=== PATIENT | male | born 1950 | race Caucasian/White ===

== ENCOUNTER 2016-12-17 10:01 | Inpatient (IN) | payer BC ==
[2016-12-17] MEDS ORDERED: SODIUM CHLORIDE 0.9% 1,000 ML IV STA (10:30)
[2016-12-17] MEDS ORDERED: PANTOPRAZOLE 40 MG/10 ML VIAL IVP STA (10:30)
--- NOTE | 2016-12-17 10:35 | ED ---
GI Bleed HPI - General Chief complaint: GI Bleed Stated complaint: post op has colostomy, bleeding into bag Time Seen by Provider: 12/17/16 10:05 Source: patient, family, RN notes reviewed Mode of arrival: ambulatory Limitations: no limitations - History of Present Illness Initial comments: Is a 66-year-old male with a history of a colostomy for diverticulitis who states he had a colonoscopy done 2 days ago and yesterday developed some dark red blood in his colostomy bag. The original colostomy was done for diverticulitis. The plan was to do a reversal in the near future. He did have a colonoscopy including the insertion of the scope through the rectum as well as to the ostomy site. Apparently there were 3 polyps in 1 fatty tumor removed. Patient was taken off aspirin he was supposed be off Plavix but apparently did not know that clopidogrel is the other name for Plavix. He was continuing to take it. He quit taking it yesterday. This morning he has had 2 colostomy bags full of dark red blood. He is feeling somewhat lightheaded somewhat dizzy he does look pale per his family. He has no abdominal pain no chest pain fevers chills or sweats or other symptoms. MD complaint: gross hematochezia - Related Data Home Medications Medication Instructions Recorded Confirmed Atenolol [Tenormin] 25 mg PO HS 04/21/16 12/17/16 Atorvastatin Calcium [Lipitor] 10 mg PO HS 04/21/16 12/17/16 Cyanocobalamin [Vitamin B-12] 1,000 mcg PO HS 04/21/16 12/17/16 Folic Acid 1 mg PO DAILY 04/21/16 12/17/16 Magnesium Chloride [Mag64] 64 mg PO DAILY 04/21/16 12/17/16 Aspirin EC [Ecotrin Low Dose] 81 mg PO HS 05/05/16 12/17/16 Cholecalciferol [Vitamin D3] 2,000 unit PO HS 08/24/16 12/17/16 Multivitamins, Thera [Multivitamin 1 tab PO HS 08/24/16 12/17/16 (formulary)] L.acidoph,Paracasei, B.lactis 1 cap PO HS 09/27/16 12/17/16 [Probiotic] Clopidogrel [Plavix] 75 mg PO HS 12/17/16 12/17/16 Allergies Allergy/AdvReac Type Severity Reaction Status Date / Time hydromorphone HCl AdvReac Hallucinati Verified 12/17/16 10:28 [From Dilaudid] ons Review of Systems ROS Statement: Those systems with pertinent positive or pertinent negative responses have been documented in the HPI. ROS Other: All systems not noted in ROS Statement are negative. Past Medical History Past Medical History: Coronary Artery Disease (CAD), Hyperlipidemia, Hypertension, Myocardial Infarction ([place]), Skin Disorder Additional Past Medical History / Comment(s): RIGHT FOOT WOUND.hx diverticulitis Last Myocardial Infarction Date:: 2000 History of Any Multi-Drug Resistant Organisms: None Reported Past Surgical History: Bowel Resection, Heart Catheterization With Stent Additional Past Surgical History / Comment(s): aortogram, bowel resection with colostomy, stent right leg. Colonoscopy 2 days ago Past Anesthesia/Blood Transfusion Reactions: No Reported Reaction Date of Last Stent Placement:: 2000 Past Psychological History: No Psychological Hx Reported Smoking Status: Current every day smoker Past Alcohol Use History: None Reported Additional Past Alcohol Use History / Comment(s): SMOKED FOR 40 YRS, 1/2 PPD FROM 2.5 PPD. Past Drug Use History: None Reported - Past Family History Father Family Medical History: Cancer Mother Family Medical History: Cancer General Exam - General Exam Comments Initial Comments: This is a well-developed well-nourished awake alert oriented 3 male Limitations: no limitations General appearance: alert, in no apparent distress Head exam: Present: atraumatic, normocephalic, normal inspection Eye exam: Present: PERRL, EOMI, other (Pale conjunctiva). Absent: scleral icterus, conjunctival injection, periorbital swelling ENT exam: Present: normal exam, mucous membranes moist Neck exam: Present: normal inspection. Absent: tenderness, meningismus, lymphadenopathy Respiratory exam: Present: normal lung sounds bilaterally. Absent: respiratory distress, wheezes, rales, rhonchi, stridor Cardiovascular Exam: Present: regular rate, normal rhythm, normal heart sounds. Absent: systolic murmur, diastolic murmur, rubs, gallop, clicks GI/Abdominal exam: Present: soft, normal bowel sounds, other (Examination a colostomy bag demonstrate burgundy-colored stool in the ostomy bag the abdomen is soft and nontender no guarding rebound masses or bruits). Absent: distended , tenderness, guarding, rebound, rigid Rectal exam: Present: deferred Extremities exam: Present: normal inspection, full ROM, normal capillary refill. Absent: tenderness, pedal edema, joint swelling, calf tenderness Back exam: Present: normal inspection Neurological exam: Present: alert, oriented X3, CN II-XII intact Psychiatric exam: Present: normal affect, normal mood Skin exam: Present: warm, dry, intact, pallor. Absent: rash Course Vital Signs 12/17/16 12/17/16 10:05 11:03 Temperature 98.4 F 98 F Pulse Rate 78 64 Respiratory 18 18 Rate Blood Pressure 92/81 111/58 O2 Sat by Pulse 96 99 Oximetry - Reevaluation(s) Reevaluation #1: 12/17/16 10:35 Patient does state that he has had blood transfusions before. Medical Decision Making - Medical Decision Making I did discuss findings with the patient family as well as with Dr. Godoy was covered Dr. Redd. Patient will be admitted with every 6 hours CBCs he at this time does not require blood transfusion. - Lab Data Result diagrams: 12/17/16 10:45 12/17/16 10:45 Lab Results 12/17/16 12/17/16 12/17/16 Range/Units 10:45 10:45 10:45 WBC 13.4 H (3.8-10.6) k/uL RBC 2.94 L (4.30-5.90) m/uL Hgb 9.9 L (13.0-17.5) gm/dL Hct 31.8 L (39.0-53.0) % MCV 108.4 H (80.0-100.0) fL MCH 33.8 (25.0-35.0) pg MCHC 31.2 (31.0-37.0) g/dL RDW 14.7 (11.5-15.5) % Plt Count 217 (150-450) k/uL Neutrophils % 86 % Lymphocytes % 8 % Monocytes % 4 % Eosinophils % 0 % Basophils % 1 % Neutrophils # 11.4 H (1.3-7.7) k/uL Lymphocytes # 1.0 (1.0-4.8) k/uL Monocytes # 0.6 (0-1.0) k/uL Eosinophils # 0.1 (0-0.7) k/uL Basophils # 0.1 (0-0.2) k/uL Manual Slide Review Performed Macrocytosis Marked PT (9.0-12.0) sec INR (<1.1) APTT (22.0-30.0) sec Sodium 140 (137-145) mmol/L Potassium 4.3 (3.5-5.1) mmol/L Chloride 108 H (98-107) mmol/L Carbon Dioxide 17 L (22-30) mmol/L Anion Gap 15 mmol/L BUN 26 H (9-20) mg/dL Creatinine 1.51 H (0.66-1.25) mg/dL Est GFR (MDRD) Af Amer 57 (>60 ml/min/1.73 sqM) Est GFR (MDRD) Non-Af 47 (>60 ml/min/1.73 sqM) Glucose 63 L (74-99) mg/dL Calcium 8.7 (8.4-10.2) mg/dL Magnesium 1.6 (1.6-2.3) mg/dL Total Bilirubin 1.0 (0.2-1.3) mg/dL AST 83 H (17-59) U/L ALT 58 (21-72) U/L Alkaline Phosphatase 179 H (38-126) U/L Total Creatine Kinase 64 (55-170) U/L CK-MB (CK-2) 0.9 (0.0-2.4) ng/mL CK-MB (CK-2) Rel Index 1.4 Troponin I <0.012 (0.000-0.034) ng/mL Total Protein 6.8 (6.3-8.2) g/dL Albumin 3.7 (3.5-5.0) g/dL Stool Occult Blood (Negative) Blood Type Blood Type Recheck Antibody Screen Spec Expiration Date 12/17/16 12/17/16 12/17/16 Range/Units 10:45 10:45 10:45 WBC (3.8-10.6) k/uL RBC (4.30-5.90) m/uL Hgb (13.0-17.5) gm/dL Hct (39.0-53.0) % MCV (80.0-100.0) fL MCH (25.0-35.0) pg MCHC (31.0-37.0) g/dL RDW (11.5-15.5) % Plt Count (150-450) k/uL Neutrophils % % Lymphocytes % % Monocytes % % Eosinophils % % Basophils % % Neutrophils # (1.3-7.7) k/uL Lymphocytes # (1.0-4.8) k/uL Monocytes # (0-1.0) k/uL Eosinophils # (0-0.7) k/uL Basophils # (0-0.2) k/uL Manual Slide Review Macrocytosis PT 9.5 (9.0-12.0) sec INR 0.9 (<1.1) APTT 23.4 (22.0-30.0) sec Sodium (137-145) mmol/L Potassium (3.5-5.1) mmol/L Chloride (98-107) mmol/L Carbon Dioxide (22-30) mmol/L Anion Gap mmol/L BUN (9-20) mg/dL Creatinine (0.66-1.25) mg/dL Est GFR (MDRD) Af Amer (>60 ml/min/1.73 sqM) Est GFR (MDRD) Non-Af (>60 ml/min/1.73 sqM) Glucose (74-99) mg/dL Calcium (8.4-10.2) mg/dL Magnesium (1.6-2.3) mg/dL Total Bilirubin (0.2-1.3) mg/dL AST (17-59) U/L ALT (21-72) U/L Alkaline Phosphatase (38-126) U/L Total Creatine Kinase (55-170) U/L CK-MB (CK-2) (0.0-2.4) ng/mL CK-MB (CK-2) Rel Index Troponin I (0.000-0.034) ng/mL Total Protein (6.3-8.2) g/dL Albumin (3.5-5.0) g/dL Stool Occult Blood Positive (Negative) Blood Type B Positive Blood Type Recheck No Antibody Screen NEGATIVE Spec Expiration Date 12/20/2016 - 3759 - Radiology Data Radiology results: report reviewed (I did review the x-ray report no definite acute findings chest x-ray is negative. Abdominal x-ray shows possible evidence of enteritis or ileus.), image reviewed Disposition Clinical Impression: Hematochezia, GI bleed, Anemia Disposition: ADMITTED IP TO THIS HOSP Condition: Stable
[2016-12-17 11:02] LABS: Basophils # (A) 0.1 k/uL (0-0.2); Basophils % (A) 1 %; CHCM 31.5; Eosinophils # (A) 0.1 k/uL (0-0.7); Eosinophils % (A) 0 %; HCT 31.8 % (39.0-53.0); HDW 2.05; HGB 9.9 gm/dL (13.0-17.5); Luc % (Auto) 2; Lymphocytes % (A) 8 %; MCH 33.8 pg (25.0-35.0); MCHC 31.2 g/dL (31.0-37.0); MCV 108.4 fL (80.0-100.0); Macrocytosis Marked; Mean Platelet Volume 8.7; Monocytes # (A) 0.6 k/uL (0-1.0); Monocytes % (A) 4 %; Neutrophils # (A) 11.4 k/uL (1.3-7.7); Neutrophils % (A) 86 %; RBC 2.94 m/uL (4.30-5.90); RDW 14.7 % (11.5-15.5); WBC 13.4 k/uL (3.8-10.6); WBC (Perox) 13.14
[2016-12-17 11:11] LABS: Calcium 8.7 mg/dL (8.4-10.2); Magnesium 1.6 mg/dL (1.6-2.3); Potassium 4.3 mmol/L (3.5-5.1); Total Protein 6.8 g/dL (6.3-8.2)
[2016-12-17 11:21] LABS: Creatine Kinase 64 U/L (55-170)
--- NOTE | 2016-12-17 11:24 | XR ---
EXAMINATION TYPE: XR chest 2V DATE OF EXAM: 12/17/2016 11:14 AM COMPARISON: Previous chest x-ray and May 2016 HISTORY: Pain in abdomen, COPD, blood in colostomy bag TECHNIQUE: Frontal and lateral views of the chest are obtained. FINDINGS: There is no focal air space opacity, pleural effusion, or pneumothorax seen. Prominent connie g volumes are compatible with COPD. The cardiac silhouette size is within normal limits. The osseou s structures are intact. IMPRESSION: No acute cardiopulmonary process.
--- NOTE | 2016-12-17 11:25 | XR ---
Abdomen HISTORY: Blood in colostomy bag, pain in abdomen x1 day Frontal view of the abdomen on 2 images No comparisons There is a spinal curvature. Questionable loss of vertebral body height at L2 at the superior endplat e. There are air-fluid levels without bowel distention. Surgical clips are present in the abdomen. IMPRESSION: Findings may represent ileus or enteritis, follow-up as indicated. Postop changes. Additi onal findings above.
[2016-12-17 11:33] LABS: Manual Review Performed
[2016-12-17 11:34] LABS: Creatine Kinase MB 0.9 ng/mL (0.0-2.4); Troponin I <0.012 ng/mL (0.000-0.034)
[2016-12-17 11:37] LABS: INR 0.9 (<1.1); Partial Thromboplastin Time 23.4 sec (22.0-30.0); Prothrombin Time 9.5 sec (9.0-12.0)
[2016-12-17] MEDS ORDERED: NALOXONE 0.4 MG/ML 1 ML VIAL IV PRN (12:18)
[2016-12-17] MEDS ORDERED: ACETAMINOPHEN TAB 325 MG TAB PO PRN (12:18)
[2016-12-17 15:12] VITALS: BMI 21.7
[2016-12-17] MEDS: SODIUM CHLORIDE 0.9% 1,000 ML IV SCH (15:18)
[2016-12-17] MEDS: NICOTINE 14MG/24HR PATCH TRANSDERM SCH (16:46)
[2016-12-17] MEDS: D5-0.45% NACL WITH KCL 20MEQ/L 1,000 ML IV SCH (16:46)
[2016-12-17 19:30] LABS: CH 34.4; HCT 25.8 % (39.0-53.0); HDW 2.06; MCH 33.9 pg (25.0-35.0); MCHC 31.4 g/dL (31.0-37.0); MCV 108.1 fL (80.0-100.0); Macrocytosis Marked; Mean Platelet Volume 8.4; RBC 2.38 m/uL (4.30-5.90); RDW 14.8 % (11.5-15.5); WBC 8.6 k/uL (3.8-10.6)
[2016-12-17 19:40] LABS: HGB 8.1 gm/dL (13.0-17.5)
[2016-12-17] MEDS ORDERED: ATENOLOL 25 MG TAB PO SCH (21:00)
[2016-12-17] MEDS ORDERED: MULTIVITAMINS, THERA 1 EACH TAB PO SCH (21:00)
[2016-12-17] MEDS ORDERED: ATORVASTATIN 10 MG TAB PO SCH (21:00)
[2016-12-17] MEDS ORDERED: MELATONIN 3 MG TABLET PO SCH (22:45)
[2016-12-18] MEDS: PANTOPRAZOLE 40 MG/10 ML VIAL IV SCH ×2 (01:06→08:59)
[2016-12-18] MEDS: D5-0.45% NACL WITH KCL 20MEQ/L 1,000 ML IV SCH ×2 (04:12→13:00)
[2016-12-18 07:41] LABS: CH 34.4; CHCM 32.4; HCT 26.5 % (39.0-53.0); HDW 2.13; HGB 8.9 gm/dL (13.0-17.5); MCH 35.9 pg (25.0-35.0); MCHC 33.7 g/dL (31.0-37.0); MCV 106.7 fL (80.0-100.0); Macrocytosis Moderate; Mean Platelet Volume 9.1; RBC 2.49 m/uL (4.30-5.90); RDW 14.4 % (11.5-15.5); WBC 7.6 k/uL (3.8-10.6)
[2016-12-18 08:45] VITALS: PULSE 62
[2016-12-18] MEDS: NICOTINE 14MG/24HR PATCH TRANSDERM SCH (08:59)
[2016-12-18] MEDS ORDERED: MAGNESIUM OXIDE 400 MG TAB PO SCH (09:00)
[2016-12-18] MEDS: SODIUM CHLORIDE 0.9% 1,000 ML IV SCH (12:13)
--- NOTE | 2016-12-18 12:52 | P.GSHP ---
History of Present Illness H&P Date: 12/18/16 Chief Complaint: GI bleeding The patient had a colonoscopy with polypectomy and removal of a submucosal lipoma last week. He had a little bit of blood noted in his ostomy appliance Sunday and then had "filled the appliance Sunday morning. He had it again Sunday morning so was instructed go to the ED. He hasn't had any further bleeding since then. No abdominal pain nausea or vomiting. He inadvertently did continue the Plavix. They didn't realize the generic name of that and continue that medication. That was stopped yesterday. - Review of Systems All systems: negative Past Medical History Past Medical History: Coronary Artery Disease (CAD), Hyperlipidemia, Hypertension, Myocardial Infarction ([place]), Skin Disorder Additional Past Medical History / Comment(s): RIGHT FOOT WOUND.hx diverticulitis Last Myocardial Infarction Date:: 2000 History of Any Multi-Drug Resistant Organisms: None Reported Past Surgical History: Bowel Resection, Heart Catheterization With Stent Additional Past Surgical History / Comment(s): aortogram, bowel resection with colostomy, stent right leg. Colonoscopy 2 days ago Past Anesthesia/Blood Transfusion Reactions: No Reported Reaction Date of Last Stent Placement:: 2000 Past Psychological History: No Psychological Hx Reported Smoking Status: Current every day smoker Past Alcohol Use History: Abuse, Heavy Additional Past Alcohol Use History / Comment(s): SMOKED FOR 40 YRS, 1/2 PPD FROM 2.5 PPD. Patient stated he drank a "small amount" however, stopped me in the hallway to inform me that he drinks "Gin straight from the bottle" unsure how much/day. Past Drug Use History: None Reported - Past Family History Father Family Medical History: Cancer Additional Family Medical History / Comment(s): lung Mother Family Medical History: Cancer Additional Family Medical History / Comment(s): lung Medications and Allergies Home Medications Medication Instructions Recorded Confirmed Type Atenolol [Tenormin] 25 mg PO HS 04/21/16 12/17/16 History Atorvastatin Calcium [Lipitor] 10 mg PO HS 04/21/16 12/17/16 History Cyanocobalamin [Vitamin B-12] 1,000 mcg PO HS 04/21/16 12/17/16 History Folic Acid 1 mg PO DAILY 04/21/16 12/17/16 History Magnesium Chloride [Mag64] 64 mg PO DAILY 04/21/16 12/17/16 History Aspirin EC [Ecotrin Low Dose] 81 mg PO HS 05/05/16 12/17/16 History Cholecalciferol [Vitamin D3] 2,000 unit PO HS 08/24/16 12/17/16 History Multivitamins, Thera [Multivitamin 1 tab PO HS 08/24/16 12/17/16 History (formulary)] L.acidoph,Paracasei, B.lactis 1 cap PO HS 09/27/16 12/17/16 History [Probiotic] Clopidogrel [Plavix] 75 mg PO HS 12/17/16 12/17/16 History Allergies Allergy/AdvReac Type Severity Reaction Status Date / Time hydromorphone HCl AdvReac Hallucinati Verified 12/17/16 10:28 [From Dilaudid] ons Surgical - Exam Osteopathic Statement: *. No significant issues noted on an osteopathic structural exam other than those noted in the History and Physical/Consult. Vital Signs Temp Pulse Resp BP Pulse Ox 98.4 F 78 18 92/81 96 12/17/16 10:05 12/17/16 10:05 12/17/16 10:05 12/17/16 10:05 12/17/16 10:05 - General well developed, well nourished, no distress - Eyes normal ocular movement - ENT no hearing loss - Neck trachea midline - Respiratory normal respiratory effort - Abdomen Dark brown stool in the ostomy appliance. No obvious blood. Abdomen: soft, non tender Results - Labs 12/18/16 07:21 12/17/16 10:45 Abnormal Lab Results - Last 24 Hours (Table) 12/17/16 12/18/16 Range/Units 19:24 07:21 RBC 2.38 L 2.49 L (4.30-5.90) m/uL Hgb 8.1 L D 8.9 L (13.0-17.5) gm/dL Hct 25.8 L 26.5 L (39.0-53.0) % MCV 108.1 H 106.7 H (80.0-100.0) fL MCH 35.9 H (25.0-35.0) pg Assessment and Plan (1) Anemia Status: Acute (2) GI bleed Status: Acute Plan: The bleeding appears to have subsided. We will recheck his hemoglobin this afternoon. If it stable and he has no further bleeding we'll discharge him home. Hold the Plavix for 5 days.
[2016-12-18 14:00] LABS: CH 34.1; CHCM 31.6; HCT 25.2 % (39.0-53.0); HDW 2.08; HGB 8.2 gm/dL (13.0-17.5); MCH 35.3 pg (25.0-35.0); MCHC 32.6 g/dL (31.0-37.0); MCV 108.2 fL (80.0-100.0); Macrocytosis Marked; Mean Platelet Volume 8.9; RBC 2.33 m/uL (4.30-5.90); RDW 14.5 % (11.5-15.5)
--- NOTE | 2016-12-18 14:10 | P.CONS ---
History of Present Illness - Reason for Consult Consult date: 12/18/16 Gastrointestinal bleeding - History of Present Illness This is a 66-year-old male patient of Dr. Allen. He gives history that on Sunday he underwent EGD and colonoscopy with Dr. Redd and he was supposed to be off Plavix but somehow this got mixed up and he only stopped the aspirin. He ended up having 3 polyps and a fatty tumor removed and he did fine on Sunday evening. He states he had chicken for dinner but on Sunday morning when he woke up there was significant amount of blood in his ostomy bag. He called the on-call physician which was Dr. Godoy and was instructed to monitor the bleeding. If it worsened he was to come in. Patient states on Sunday morning his colostomy bag was filled again and he was feeling lightheaded and he came into [facility] emergency center for evaluation. His hemoglobin was 9.9 with repeat this morning of 8.9. Patient has been admitted to the [facility] floor and consult requested. Patient states that his drinking is down to 1 every 2 days and he is only smoking on and off. There is plan to reverse his ostomy in the near future. Review of Systems All systems: negative Constitutional: Denies chills, Denies fever Eyes: denies blurred vision, denies pain Ears, nose, mouth and throat: Denies headache, Denies sore throat Cardiovascular: Reports lightheadedness, Denies chest pain, Denies shortness of breath Respiratory: Denies cough Gastrointestinal: Reports melena, Denies abdominal pain, Denies diarrhea, Denies nausea, Denies vomiting Musculoskeletal: Denies myalgias Integumentary: Denies pruritus, Denies rash Neurological: Denies numbness, Denies weakness Psychiatric: Denies anxiety, Denies depression Endocrine: Denies fatigue, Denies weight change Past Medical History Past Medical History: Coronary Artery Disease (CAD), Hyperlipidemia, Hypertension, Myocardial Infarction ([place]), Skin Disorder Additional Past Medical History / Comment(s): RIGHT FOOT WOUND.hx diverticulitis Last Myocardial Infarction Date:: 2000 History of Any Multi-Drug Resistant Organisms: None Reported Past Surgical History: Bowel Resection, Heart Catheterization With Stent Additional Past Surgical History / Comment(s): aortogram, bowel resection with colostomy, stent right leg. Colonoscopy 2 days ago Past Anesthesia/Blood Transfusion Reactions: No Reported Reaction Date of Last Stent Placement:: 2000 Past Psychological History: No Psychological Hx Reported Smoking Status: Current every day smoker Past Alcohol Use History: Abuse, Heavy Additional Past Alcohol Use History / Comment(s): SMOKED FOR 40 YRS, 1/2 PPD FROM 2.5 PPD. Patient stated he drank a "small amount" however, stopped me in the hallway to inform me that he drinks "Gin straight from the bottle" unsure how much/day. Past Drug Use History: None Reported - Past Family History Father Family Medical History: Cancer Additional Family Medical History / Comment(s): lung Mother Family Medical History: Cancer Additional Family Medical History / Comment(s): lung Medications and Allergies Home Medications Medication Instructions Recorded Confirmed Type Atenolol [Tenormin] 25 mg PO HS 04/21/16 12/17/16 History Atorvastatin Calcium [Lipitor] 10 mg PO HS 04/21/16 12/17/16 History Cyanocobalamin [Vitamin B-12] 1,000 mcg PO HS 04/21/16 12/17/16 History Folic Acid 1 mg PO DAILY 04/21/16 12/17/16 History Magnesium Chloride [Mag64] 64 mg PO DAILY 04/21/16 12/17/16 History Aspirin EC [Ecotrin Low Dose] 81 mg PO HS 05/05/16 12/17/16 History Cholecalciferol [Vitamin D3] 2,000 unit PO HS 08/24/16 12/17/16 History Multivitamins, Thera [Multivitamin 1 tab PO HS 08/24/16 12/17/16 History (formulary)] L.acidoph,Paracasei, B.lactis 1 cap PO HS 09/27/16 12/17/16 History [Probiotic] Clopidogrel [Plavix] 75 mg PO HS 12/17/16 12/17/16 History Allergies Allergy/AdvReac Type Severity Reaction Status Date / Time hydromorphone HCl AdvReac Hallucinati Verified 12/17/16 10:28 [From Dilaudid] ons Physical Exam Vitals: Vital Signs Temp Pulse Resp BP Pulse Ox 12/18/16 08:00 18 12/18/16 07:00 97.8 F 62 18 107/55 100 12/17/16 21:54 98.2 F 63 16 100/55 100 12/17/16 15:54 96 12/17/16 14:00 97.5 F L 57 L 18 106/69 99 12/17/16 13:39 57 L 18 106/69 99 Intake and Output 12/17/16 12/18/16 12/18/16 22:59 06:59 14:59 Intake Total 590 Balance 590 Intake: Oral 590 Other: Voiding Method Toilet # Voids 1 General appearance: Present: cooperative, disheveled, no acute distress. Absent : average body habitus, mild distress, morbidly obese, obese, severe distress, thin - EENT Eyes: Present: anicteric sclerae, normal apperance. Absent: abnormal pupil, disc margins sharp, edentulous, EOMI, PERRLA, fundus normal, photophobia, dentition normal, poor dentition, ptosis, scleral icterus ENT: Present: hard of hearing, normal oropharynx. Absent: hearing grossly normal, NA/AT, other, pharyngeal erythema, thrush, tonsillar exudates, tonsillar swelling Ears: bilateral: normal - Neck Neck: Present: normal ROM. Absent: lymphadenopathy, other, rigidity, stridor, thyromegaly Carotids: bilateral: upstroke normal Thyroid: bilateral: normal size - Respiratory Respiratory: bilateral: CTA, diminished, dullness, rales - Cardiovascular Rhythm: regular Heart sounds: normal: S1, S2 Abnormal Heart Sounds: Present: systolic murmur, S3 Gallop - Gastrointestinal Gastrointestinal Comment(s): Stoma and left-sided ostomy looks good. General gastrointestinal: Present: absent bowel sounds, decreased bowel sounds, distended, soft - Integumentary Integumentary: Present: normal, pale. Absent: calor, cellulitis, cyanotic, decreased turgor, flushed, jaundiced, normal turgor, ulcer - Neurologic Neurologic: Present: CNII-XII intact - Musculoskeletal Musculoskeletal: Present: gait normal, generalized weakness, strength equal bilaterally. Absent: right sided weakness, left sided weakness - Psychiatric Psychiatric: Present: A&O x's 3 Results CBC & Chem 7: 12/18/16 07:21 12/17/16 10:45 Labs: Abnormal Lab Results - Last 24 Hours (Table) 12/17/16 12/18/16 Range/Units 19:24 07:21 RBC 2.38 L 2.49 L (4.30-5.90) m/uL Hgb 8.1 L D 8.9 L (13.0-17.5) gm/dL Hct 25.8 L 26.5 L (39.0-53.0) % MCV 108.1 H 106.7 H (80.0-100.0) fL MCH 35.9 H (25.0-35.0) pg Assessment and Plan Plan: 1. Acute GI bleed due to recent polypectomy and fatty tumor removal. Dr. Redd May discharge the patient home later today. Patient is to hold Plavix for 5 days. Continue Protonix 2. Chronic anemia of chronic malnutrition. Patient will resume vitamins at discharge. 3. History of coronary artery disease status post PCI in 2 stent placement in the past. 4. Hypertension. Continue atenolol 5. COPD, stable. 6. Tobacco use and dependence. Smoking cessation. Nicotine patch. 7. Alcohol abuse. Patient has cut back to one alcoholic beverage every 2 days which is much improved for him. Monitor for DTs. 8. Gastrointestinal prophylaxis. Protonix 9. DVT prophylaxis. MARYSE phan Discharge plan: Return home Impression and plan of care have been directed as dictated by the signing physician. Hafsa Haq nurse practitioner acting as scribe for signing physician. Time with Patient: Greater than 30
[2016-12-18 15:55] VITALS: BP 95/54; RESP 16; TEMP 98.3
--- NOTE | 2016-12-18 16:23 | P.DS ---
Providers Date of admission: 12/17/16 12:18 Expected date of discharge: 12/18/16 Attending physician: Jacinta Redd Consults: 12/17/16 14:15 Consult Physician Routine Consulting Provider: Buddy Allen Consult Reason/Comments: medical management Do you want consulting provider notified?: Yes Primary care physician: Buddy Allen - Discharge Diagnosis(es) (1) Anemia Current Visit: Yes Status: Acute (2) GI bleed Current Visit: Yes Status: Acute Hospital Course: The patient presented with GI bleeding after colonoscopy. He was admitted for observation. THe bleeding subsided and he was felt to be stable to be discharged. Stop plavix until sunday. Patient Condition at Discharge: Stable Plan - Discharge Summary Discharge Medication List Atenolol [Tenormin] 25 mg PO HS 04/21/16 [History] Atorvastatin Calcium [Lipitor] 10 mg PO HS 04/21/16 [History] Cyanocobalamin [Vitamin B-12] 1,000 mcg PO HS 04/21/16 [History] Folic Acid 1 mg PO DAILY 04/21/16 [History] Magnesium Chloride [Mag64] 64 mg PO DAILY 04/21/16 [History] Aspirin EC [Ecotrin Low Dose] 81 mg PO HS 05/05/16 [History] Cholecalciferol [Vitamin D3] 2,000 unit PO HS 08/24/16 [History] Multivitamins, Thera [Multivitamin (formulary)] 1 tab PO HS 08/24/16 [History] L.acidoph,Paracasei, B.lactis [Probiotic] 1 cap PO HS 09/27/16 [History] Clopidogrel [Plavix] 75 mg PO HS 12/17/16 [History] Follow up Appointment(s)/Referral(s): Buddy Allen MD [Primary Care Provider] - 1-2 days Jacinta Redd DO [Doctor of Osteopathic Medicine] - 2 Weeks (2-3 weeks to discuss colostomy reversal) Discharge Disposition: HOME SELF-CARE
[2016-12-19] MEDS ORDERED: PANTOPRAZOLE 40 MG TABLET PO SCH (07:30)
== END 2016-12-18 18:28 | disposition home or self-care (01) | DRG 920 ==
LOC: EC 10:01 → 5MS5E 12:18
PROVIDERS: ADMIT Surgery; ATTEND Surgery
DX: K91.840 Postprocedural hemorrhage of a digestive system organ or structure following a digestive system procedure (principal); E46 Unspecified protein-calorie malnutrition; I25.10 Atherosclerotic heart disease of native coronary artery without angina pectoris; I10 Essential (primary) hypertension; T45.525A Adverse effect of antithrombotic drugs, initial encounter; E78.5 Hyperlipidemia, unspecified; I25.2 Old myocardial infarction; D63.8 Anemia in other chronic diseases classified elsewhere; F10.10 Alcohol abuse, uncomplicated; J44.9 Chronic obstructive pulmonary disease, unspecified; H91.90 Unspecified hearing loss, unspecified ear; R53.1 Weakness; R42 Dizziness and giddiness; F17.200 Nicotine dependence, unspecified, uncomplicated; Z79.899 Other long term (current) drug therapy; Z79.02 Long term (current) use of antithrombotics/antiplatelets; Z87.828 Personal history of other (healed) physical injury and trauma; Z79.82 Long term (current) use of aspirin; Z88.5 Allergy status to narcotic agent; Z87.2 Personal history of diseases of the skin and subcutaneous tissue; Z87.19 Personal history of other diseases of the digestive system; Z86.010 Personal history of colon polyps; Z71.6 Tobacco abuse counseling; Z80.1 Family history of malignant neoplasm of trachea, bronchus and lung; Z86.19 Personal history of other infectious and parasitic diseases; Z90.49 Acquired absence of other specified parts of digestive tract; Z95.820 Peripheral vascular angioplasty status with implants and grafts; Z95.5 Presence of coronary angioplasty implant and graft; Z93.3 Colostomy status; Z68.21 Body mass index [BMI] 21.0-21.9, adult; Y83.8 Other surgical procedures as the cause of abnormal reaction of the patient, or of later complication, without mention of misadventure at the time of the procedure; Y92.019 Unspecified place in single-family (private) house as the place of occurrence of the external cause
CPT/HCPCS: 36415; 71020; 74000; 80053; 82272; 82550; 82553; 83735; 84484; 85025; 85027; 85610; 85730; 86850; 86900; 86901; 96361; 96374; 99285

== ENCOUNTER 2017-02-17 12:21 | Emergency (ER) | payer BC ==
--- NOTE | 2017-02-17 13:22 | XR ---
EXAMINATION TYPE: XR knee complete LT DATE OF EXAM: 02/17/2017 COMPARISON: NONE HISTORY: Pain TECHNIQUE: Four views are submitted. FINDINGS: Vascular calcifications are seen and there is hypertrophic change of the patella. Small amount of flu id in the suprapatellar bursa. Diffuse osteopenia. Moderate arthritic change involving the knee joint . IMPRESSION: 1. Diffuse osteopenia with osteoarthritis 2. Small amount of fluid in the suprapatellar bursa.
--- NOTE | 2017-02-17 13:40 | ED ---
General Adult HPI - General Chief complaint: Extremity Injury, Lower Stated complaint: Fall Time Seen by Provider: 02/17/17 12:56 Source: patient, family, RN notes reviewed Mode of arrival: wheelchair Limitations: no limitations - History of Present Illness Initial comments: Patient 66-year-old male who presents emergency room today with a chief complaint of an injury to the left knee that occurred yesterday. [place] and [place] down onto the left knee. He does admit that he's had pain has been increased today had a difficult time bearing weight and ambulating. Agent does admit some mild swelling. He denies any other complaints or symptoms. Patient denies any recent fever, chills, shortness of breath, chest pain, back pain, abdominal pain, nausea or vomiting, numbness or tingling, dysuria or hematuria, constipation or diarrhea, headaches or visual changes, or any other complaints. - Related Data Home Medications Medication Instructions Recorded Confirmed Atenolol [Tenormin] 25 mg PO HS 04/21/16 02/17/17 Atorvastatin Calcium [Lipitor] 10 mg PO HS 04/21/16 02/17/17 Cyanocobalamin [Vitamin B-12] 1,000 mcg PO HS 04/21/16 02/17/17 Folic Acid 1 mg PO HS 04/21/16 02/17/17 Magnesium Chloride [Mag64] 64 mg PO HS 04/21/16 02/17/17 Aspirin EC [Ecotrin Low Dose] 81 mg PO HS 05/05/16 02/17/17 Cholecalciferol [Vitamin D3] 2,000 unit PO HS 08/24/16 02/17/17 Multivitamins, Thera [Multivitamin 1 tab PO HS 08/24/16 02/17/17 (formulary)] Clopidogrel [Plavix] 75 mg PO HS 12/17/16 02/17/17 Allergies Allergy/AdvReac Type Severity Reaction Status Date / Time hydromorphone HCl AdvReac Hallucinati Verified 02/17/17 13:11 [From Dilaudid] ons Review of Systems ROS Statement: Those systems with pertinent positive or pertinent negative responses have been documented in the HPI. ROS Other: All systems not noted in ROS Statement are negative. Past Medical History Past Medical History: Coronary Artery Disease (CAD), Hyperlipidemia, Hypertension, Myocardial Infarction ([place]), Skin Disorder Additional Past Medical History / Comment(s): RIGHT FOOT WOUND.hx diverticulitis Last Myocardial Infarction Date:: 2000 History of Any Multi-Drug Resistant Organisms: None Reported Past Surgical History: Bowel Resection, Heart Catheterization With Stent Additional Past Surgical History / Comment(s): aortogram, bowel resection with colostomy, stent right leg. Colonoscopy 2 days ago Past Anesthesia/Blood Transfusion Reactions: No Reported Reaction Date of Last Stent Placement:: 2000 Past Psychological History: No Psychological Hx Reported Smoking Status: Current every day smoker Past Alcohol Use History: Abuse, Heavy Past Drug Use History: None Reported - Past Family History Father Family Medical History: Cancer Additional Family Medical History / Comment(s): lung Mother Family Medical History: Cancer Additional Family Medical History / Comment(s): lung General Exam - General Exam Comments Initial Comments: General: The patient is awake and alert, in no distress, and does not appear acutely ill. Neck: The neck is supple, there is no tenderness or JVD. Cardiovascular: There is a regular rate and rhythm. No murmur, rub or gallop is appreciated. Respiratory: Lungs are clear to auscultation, respirations are non-labored, breath sounds are equal. No wheezes, stridor, rales, or rhonchi. Musculoskeletal: Mild swelling to the left knee. Shows good range of motion both flexion and extension. Sensations are intact pulses equal bilaterally 2+. Strength 5/5. Mild tenderness over the anterior tibia. Pain reproduced with loading joint. Neurological: A&O x 3. CN II-XII intact, There are no obvious motor or sensory deficits. Coordination appears grossly intact. Speech is normal. Skin: Skin is warm and dry and no rashes or lesions are noted. Psychiatric: Normal mood and affect. Limitations: no limitations Course Vital Signs 02/17/17 12:42 Temperature 98.7 F Pulse Rate 81 Respiratory 16 Rate Blood Pressure 103/71 O2 Sat by Pulse 99 Oximetry Medical Decision Making - Medical Decision Making Patient's CT reviewed and does show evidence for a popliteal cyst. No evidence for acute fracture dislocation. Results were discussed with the patient. Patient will be placed in knee immobilizer. He states he has crutches at home. He is advised follow-up with orthopedic doctor. He is advised to continue ice and elevate the affected area. Advised return if symptoms increase or worsen or for any other concerns. He states understanding and is in agreement. Disposition Clinical Impression: Knee injury Disposition: HOME SELF-CARE Condition: Good Instructions: Swollen Knee Joint (ED) Additional Instructions: Please use knee immobilizer up and moving around. Please use crutches with weightbearing as tolerated. Please continue to ice elevate the affected area as discussed. Please follow-up with orthopedic doctor over the next 2-5 days. Please return to emergency room if any symptoms increase or worsen. Referrals: Buddy Allen MD [Primary Care Provider] - 1-2 days Time of Disposition: 14:25
--- NOTE | 2017-02-17 14:14 | CT ---
EXAMINATION TYPE: CT knee LT wo con DATE OF EXAM: 02/17/2017 COMPARISON: NONE HISTORY: Patient complains of left knee pain post fall in sand yesterday. CT DLP: 434.4 mGycm Automated exposure control for dose reduction was used. FINDINGS: Hypertrophic change of the patella narrowing of the joint space is seen without evidence of erosive c hange. Tibial plateau is maintained. Visualized osseous structures intact. Trace amount of fluid in the supr apatellar bursa. Vascular calcifications noted. Low density structure posteriorly likely related to popliteal fossa cyst. Soft tissue ossification o r calcification posteriorly is noted to the joint space. IMPRESSION: 1. NO DEFINITE ACUTE FRACTURE OR SYMPTOMS PERSIST CONSIDER MRI. 2. FINDINGS SUGGEST A POPLITEAL FOSSA CYST MEASURING 2 CM.. 3. OSTEOARTHRITIS
[2017-02-17 14:37] VITALS: BP 107/57; PULSE 72; RESP 18; TEMP 97.9
== END 2017-02-17 14:47 | disposition home or self-care (01) ==
LOC: EC 12:21
DX: S89.92XA Unspecified injury of left lower leg, initial encounter (principal); M71.22 Synovial cyst of popliteal space [Baker], left knee; E78.5 Hyperlipidemia, unspecified; I10 Essential (primary) hypertension; I25.2 Old myocardial infarction; F17.200 Nicotine dependence, unspecified, uncomplicated; Z79.02 Long term (current) use of antithrombotics/antiplatelets; Z79.82 Long term (current) use of aspirin; Z79.899 Other long term (current) drug therapy; Z88.5 Allergy status to narcotic agent; W01.0XXA Fall on same level from slipping, tripping and stumbling without subsequent striking against object, initial encounter; Y92.832 Beach as the place of occurrence of the external cause
CPT/HCPCS: 73562; 73700; 99284; 29515; L1830 ×2

== ENCOUNTER 2017-05-27 09:22 | Inpatient (IN) | payer BC ==
[2017-05-27] MEDS ORDERED: predniSONE 20 MG TAB PO STA (09:54)
[2017-05-27] MEDS ORDERED: ALBUTEROL NEBULIZED 2.5 MG/3 ML INHALATION STA (09:54)
[2017-05-27 10:12] LABS: Anisocytosis Slight; Basophils % (A) 0 %; CH 30.3; CHCM 33.5; Eosinophils # (A) 0.1 k/uL (0-0.7); Eosinophils % (A) 0 %; HCT 25.4 % (39.0-53.0); HDW 3.04; HGB 8.3 gm/dL (13.0-17.5); Luc # (Auto) 0.12; Luc % (Auto) 1; Lymphocytes # (A) 1.6 k/uL (1.0-4.8); Lymphocytes % (A) 15 %; MCH 29.7 pg (25.0-35.0); MCHC 32.8 g/dL (31.0-37.0); MCV 90.5 fL (80.0-100.0); Mean Platelet Volume 8.5; Monocytes # (A) 0.5 k/uL (0-1.0); Monocytes % (A) 4 %; Neutrophils # (A) 8.5 k/uL (1.3-7.7); Neutrophils % (A) 79 %; RBC 2.81 m/uL (4.30-5.90); RDW 19.6 % (11.5-15.5); WBC 10.7 k/uL (3.8-10.6); WBC (Perox) 10.72
[2017-05-27 10:16] LABS: Calcium 7.6 mg/dL (8.4-10.2); Potassium 3.2 mmol/L (3.5-5.1); Total Bilirubin 1.3 mg/dL (0.2-1.3); Total Protein 6.1 g/dL (6.3-8.2)
[2017-05-27 10:19] LABS: INR 1.2 (<1.2); Partial Thromboplastin Time 24.9 sec (22.0-30.0); Prothrombin Time 12.2 sec (9.0-12.0)
--- NOTE | 2017-05-27 10:22 | ED ---
General Adult HPI - General Chief complaint: Shortness of Breath Stated complaint: Shortness of breath Time Seen by Provider: 05/27/17 09:31 Source: patient, RN notes reviewed, old records reviewed Mode of arrival: wheelchair Limitations: no limitations - History of Present Illness Initial comments: 66-year-old male with past medical history COPD, CAD, and anemia presents with a 3 week history of worsening exertional dyspnea. He also reports generalized weakness. Patient states over the past several days he's been unable to walk more than 10 feet without becoming severely short of breath. Denies chest pain. Denies fever. He has had a cough over this is typical as he does have COPD. No significant change in cough. This is productive of small amount of sputum. No recent change in medications. Patient states that approximately 2 weeks ago he was instructed by his physician or come to the hospital for blood transfusion. He did receive blood at that time for a low hemoglobin. He has additional past medical history of diverticulitis requiring colostomy approximately one year ago. This is subsequently been reversed. Patient denies rectal bleeding. He is on Plavix for CAD. - Related Data Home Medications Medication Instructions Recorded Confirmed Atorvastatin Calcium [Lipitor] 10 mg PO HS 04/21/16 05/27/17 Folic Acid 1 mg PO HS 04/21/16 05/27/17 Clopidogrel [Plavix] 75 mg PO HS 12/17/16 05/27/17 Allergies Allergy/AdvReac Type Severity Reaction Status Date / Time hydromorphone HCl AdvReac Hallucinati Verified 05/27/17 10:06 [From Dilaudid] ons Review of Systems ROS Statement: Those systems with pertinent positive or pertinent negative responses have been documented in the HPI. ROS Other: All systems not noted in ROS Statement are negative. Past Medical History Past Medical History: Coronary Artery Disease (CAD), Hyperlipidemia, Hypertension, Myocardial Infarction ([place]), Skin Disorder Additional Past Medical History / Comment(s): RIGHT FOOT WOUND.hx diverticulitis Last Myocardial Infarction Date:: 2000 History of Any Multi-Drug Resistant Organisms: None Reported Past Surgical History: Bowel Resection, Heart Catheterization With Stent Additional Past Surgical History / Comment(s): aortogram, bowel resection with colostomy, stent right leg. Colonoscopy 2 days ago Past Anesthesia/Blood Transfusion Reactions: No Reported Reaction Date of Last Stent Placement:: 2000 Past Psychological History: No Psychological Hx Reported Smoking Status: Current every day smoker - Past Family History Father Family Medical History: Cancer Additional Family Medical History / Comment(s): lung Mother Family Medical History: Cancer Additional Family Medical History / Comment(s): lung General Exam Limitations: no limitations General appearance: alert, in no apparent distress, anxious Eye exam: Present: normal appearance, PERRL ENT exam: Present: mucous membranes dry Neck exam: Present: normal inspection, full ROM. Absent: tenderness Respiratory exam: Present: prolonged expiratory, other (Bronchospastic cough). Absent: wheezes Cardiovascular Exam: Present: normal rhythm, tachycardia GI/Abdominal exam: Present: soft. Absent: distended, tenderness Rectal exam: Present: normal inspection, normal rectal tone, heme (-) stool Extremities exam: Present: normal capillary refill. Absent: pedal edema, calf tenderness Back exam: Present: normal inspection, full ROM Neurological exam: Present: alert, oriented X3, CN II-XII intact. Absent: motor sensory deficit Psychiatric exam: Present: normal affect, normal mood Skin exam: Present: warm, dry, intact. Absent: cyanosis, diaphoretic Course Vital Signs 05/27/17 05/27/17 09:26 11:02 Temperature 98.7 F Pulse Rate 111 H 100 Respiratory 22 Rate Blood Pressure 103/56 O2 Sat by Pulse 97 Oximetry - Reevaluation(s) Reevaluation #1: 05/27/17 10:44 Patient is updated as to laboratory findings. He is agreeable with admission for further evaluation treatment Medical Decision Making - Medical Decision Making EKG shows sinus tachycardia with PACs, ventricular rate 102 NJ interval 150, QRS duration 70, QTC 482 66-year-old male presenting with exertional dyspnea and generalized weakness. Laboratory studies reveal hemoglobin 8.3 which is stable from previous. No active signs of bleeding. Hemoccult is negative. D-dimer is elevated 1.13, however creatinine is also elevated 1.54 which persisted patient's baseline. VQ scan will be obtained. Patient is heparinized prior to scan. Potassium 3.2 from a baseline of 4.3 which is replaced. Magnesium is severely low at 0.5, from recent baseline 1.6. Troponin is mildly elevated 0.035, patient has no chest pain, this may be demand ischemia. Patient is on heparin awaiting VQ scan for pulmonary embolism, he may require low-dose heparin drip if VQ scan is negative. Albumin is also low at 3.0. Patient does abuse alcohol daily. Magnesium and potassium deficiencies may be related to alcohol abuse. Patient is placed on CIWA. Chest x-ray shows hyperinflation consistent with COPD. Patient does have bronchospastic cough, there is no wheezing, good air entry bilaterally. Patient will receive VQ scan. Diagnosis: Dyspnea, rule out PE, troponin elevation, anemia, chronic kidney disease, hypokalemia, hypomagnesemia, hypoalbuminemia - Lab Data Result diagrams: 05/27/17 09:45 05/27/17 09:45 Lab Results 05/27/17 05/27/17 05/27/17 Range/Units 09:45 09:45 09:45 WBC 10.7 H (3.8-10.6) k/uL RBC 2.81 L (4.30-5.90) m/uL Hgb 8.3 L (13.0-17.5) gm/dL Hct 25.4 L (39.0-53.0) % MCV 90.5 (80.0-100.0) fL MCH 29.7 (25.0-35.0) pg MCHC 32.8 (31.0-37.0) g/dL RDW 19.6 H (11.5-15.5) % Plt Count 327 (150-450) k/uL Neutrophils % 79 % Lymphocytes % 15 % Monocytes % 4 % Eosinophils % 0 % Basophils % 0 % Neutrophils # 8.5 H (1.3-7.7) k/uL Lymphocytes # 1.6 (1.0-4.8) k/uL Monocytes # 0.5 (0-1.0) k/uL Eosinophils # 0.1 (0-0.7) k/uL Basophils # 0.0 (0-0.2) k/uL Anisocytosis Slight PT (9.0-12.0) sec INR (<1.2) APTT (22.0-30.0) sec D-Dimer (<0.60) mg/L FEU Sodium 135 L (137-145) mmol/L Potassium 3.2 L (3.5-5.1) mmol/L Chloride 99 (98-107) mmol/L Carbon Dioxide 23 (22-30) mmol/L Anion Gap 13 mmol/L BUN 12 (9-20) mg/dL Creatinine 1.54 H (0.66-1.25) mg/dL Est GFR (MDRD) Af Amer 55 (>60 ml/min/1.73 sqM) Est GFR (MDRD) Non-Af 46 (>60 ml/min/1.73 sqM) Glucose 97 (74-99) mg/dL Calcium 7.6 L (8.4-10.2) mg/dL Magnesium 0.5 L* (1.6-2.3) mg/dL Total Bilirubin 1.3 (0.2-1.3) mg/dL AST 52 (17-59) U/L ALT 20 L (21-72) U/L Alkaline Phosphatase 178 H (38-126) U/L Total Creatine Kinase 253 H (55-170) U/L CK-MB (CK-2) 2.4 (0.0-2.4) ng/mL CK-MB (CK-2) Rel Index 0.9 Troponin I 0.035 H* (0.000-0.034) ng/mL NT-Pro-B Natriuret Pep pg/mL Total Protein 6.1 L (6.3-8.2) g/dL Albumin 3.0 L (3.5-5.0) g/dL Stool Occult Blood (Negative) 05/27/17 05/27/17 05/27/17 Range/Units 09:45 09:45 09:45 WBC (3.8-10.6) k/uL RBC (4.30-5.90) m/uL Hgb (13.0-17.5) gm/dL Hct (39.0-53.0) % MCV (80.0-100.0) fL MCH (25.0-35.0) pg MCHC (31.0-37.0) g/dL RDW (11.5-15.5) % Plt Count (150-450) k/uL Neutrophils % % Lymphocytes % % Monocytes % % Eosinophils % % Basophils % % Neutrophils # (1.3-7.7) k/uL Lymphocytes # (1.0-4.8) k/uL Monocytes # (0-1.0) k/uL Eosinophils # (0-0.7) k/uL Basophils # (0-0.2) k/uL Anisocytosis PT 12.2 H (9.0-12.0) sec INR 1.2 H (<1.2) APTT 24.9 (22.0-30.0) sec D-Dimer 1.13 H (<0.60) mg/L FEU Sodium (137-145) mmol/L Potassium (3.5-5.1) mmol/L Chloride (98-107) mmol/L Carbon Dioxide (22-30) mmol/L Anion Gap mmol/L BUN (9-20) mg/dL Creatinine (0.66-1.25) mg/dL Est GFR (MDRD) Af Amer (>60 ml/min/1.73 sqM) Est GFR (MDRD) Non-Af (>60 ml/min/1.73 sqM) Glucose (74-99) mg/dL Calcium (8.4-10.2) mg/dL Magnesium (1.6-2.3) mg/dL Total Bilirubin (0.2-1.3) mg/dL AST (17-59) U/L ALT (21-72) U/L Alkaline Phosphatase (38-126) U/L Total Creatine Kinase (55-170) U/L CK-MB (CK-2) (0.0-2.4) ng/mL CK-MB (CK-2) Rel Index Troponin I (0.000-0.034) ng/mL NT-Pro-B Natriuret Pep 1320 pg/mL Total Protein (6.3-8.2) g/dL Albumin (3.5-5.0) g/dL Stool Occult Blood Negative (Negative) Critical Care Time Critical Care Time: Yes Total Critical Care Time: 35 Disposition Clinical Impression: Dyspnea, Hypomagnesemia, Hypokalemia, Elevated d-dimer, NSTEMI (non-ST elevated myocardial infarction), Alcohol abuse Disposition: ADMITTED IP TO THIS [facility] Condition: Serious Referrals: Buddy Allen MD [Primary Care Provider] - 1-2 days Decision to Admit Reason: Admit from EC Decision Date: 05/27/17 Decision Time: 11:14
[2017-05-27 10:25] LABS: Magnesium 0.5 mg/dL (1.6-2.3)
[2017-05-27] MEDS ORDERED: SODIUM CHLORIDE 0.9% 1,000 ML IV ONE (10:27)
[2017-05-27] MEDS ORDERED: HEPARIN SODIUM,PORCINE/D5W PMX 25,000 UNIT in DEXTROSE/WATER 1 500ML.BAG IV SCH ×2 (10:29→14:00)
[2017-05-27] MEDS ORDERED: HEPARIN SODIUM,PORCINE 5,000 UNIT/ML 1 ML VIAL IV PRN (10:29)
[2017-05-27] MEDS ORDERED: HEPARIN SODIUM,PORCINE 10,000 UNIT/ML 1 ML VIAL IV ONE (10:29)
[2017-05-27] MEDS ORDERED: MAGNESIUM SULFATE-D5W PMX 1 GM in DEXTROSE/WATER 1 100ML.BAG IVPB SCH (10:30)
--- NOTE | 2017-05-27 10:32 | XR ---
EXAMINATION TYPE: XR chest 2V DATE OF EXAM: 05/27/2017 HISTORY: difficulty breathing. REFERENCE: Previous study dated 12/17/2016. FINDINGS: The lungs are clear. Pleural space are clear. The heart is not enlarged. There is mild over inflation of the lungs. IMPRESSION: PLEASE CORRELATE FOR COPD.
[2017-05-27] MEDS ORDERED: POTASSIUM CHLORIDE ER 20 MEQ TAB.ER PO STA (10:37)
[2017-05-27 10:39] LABS: Creatine Kinase MB 2.4 ng/mL (0.0-2.4)
[2017-05-27] MEDS ORDERED: LORazepam 2 MG/ML INJ IV PRN ×3 (10:41)
[2017-05-27] MEDS ORDERED: THIAMINE 100 MG/ML 2 ML VIAL IM STA (10:41)
[2017-05-27 10:50] LABS: Troponin I 0.035 ng/mL (0.000-0.034)
[2017-05-27] MEDS ORDERED: ASPIRIN 325 MG TAB PO STA (11:02)
[2017-05-27] MEDS ORDERED: NALOXONE 0.4 MG/ML 1 ML VIAL IV PRN (11:02)
[2017-05-27] MEDS: SODIUM CHLORIDE 0.9% 1,000 ML IV SCH ×2 (11:02→22:10)
[2017-05-27] MEDS ORDERED: ONDANSETRON 4 MG/2 ML VIAL IVP PRN (11:02)
[2017-05-27] MEDS ORDERED: ACETAMINOPHEN TAB 325 MG TAB PO PRN (11:02)
[2017-05-27] MEDS: MAGNESIUM SULFATE-D5W PMX 1 GM in DEXTROSE/WATER 1 100ML.BAG IVPB SCH ×5 (11:21→19:55)
--- NOTE | 2017-05-27 13:30 | NM ---
EXAMINATION TYPE: NM pul vent and perfuse DATE OF EXAM: 05/27/2017 COMPARISON: NONE HISTORY: Elevated d-dimer TECHNIQUE: Utilizing inhalation of 76.2 mCi Tc 99m DTPA aerosol and intravenous injection of 5.4 mCi of Tc 99m MAA, ventilation and perfusion images are acquired post injection in multiple projections. FINDINGS: There is central airway deposition of radiopharmaceutical. There is patchy perfusion and ve ntilation consistent with COPD. There are no VQ mismatches. IMPRESSION: THIS EXAMINATION IS LOW PROBABILITY FOR PULMONARY EMBOLUS.
--- NOTE | 2017-05-27 14:12 | P.CNPUL ---
History of Present Illness Consult date: 05/27/17 Reason for consult: dyspnea History of present illness: 66-year-old male patient known to me from previous hospitalizations, specifically from May 2016 when the patient came in to the ICU with complicated acute diverticulitis with abscess formation for which she required a colectomy and diverting colostomy and John pouch. I took care of this patient back then and he is course was essentially complicated by sepsis, hypotension, acute kidney injury and altered mentation from which the patient recovered. I saw him in my office subsequently and he was diagnosed having advanced COPD with an FEV1 of 40% of predicted. He was strongly advised to quit smoking and quit drinking in addition. Note that the patient underwent a reversal of his colostomy on December 2016. This was successful without any complications. Currently the patient is coming into the hospital cause a worsening shortness of breath. The patient has no significant cough or sputum production. He has no chest pain. Denies having any fever chills or night sweats. He had limited amount of sputum production which essentially subsided. He reports exertional dyspnea and he gets short of breath with limited amount of activity. He is known to have COPD and coronary artery disease. Has undergone previous coronary intervention and stenting. Echocardiogram from 2015 showed a normal LV function without evidence of any valvular heart disease with a normal ejection fraction. He d-dimer was elevated. The patient was given a VQ scan that came back of a low probability. The patient has chronic renal failure the creatinine is typically elevated at 1.5-1.6. For that reason a CT angios the chest was not done. Chest x-ray shows hyperinflation without any acute abnormalities. The BNP level is at 1320. Initial troponin was negative second troponin was at 0.035. Rest of the electrodes are all within normal limits. He has chronic anemia and hemoglobin is been stable at 8.3. Coagulation profile is within normal limits. Review of Systems Constitutional: Reports fatigue, Reports poor appetite, Reports weakness Eyes: denies blurred vision, denies bulging eye, denies decreased vision Ears: deny: decreased hearing, ear discharge, earache Ears, nose, mouth and throat: Reports as per HPI Cardiovascular: Reports decreased exercise tolerance, Reports dyspnea on exertion, Reports shortness of breath Respiratory: Reports dyspnea Gastrointestinal: Reports as per HPI Genitourinary: Reports as per HPI Musculoskeletal: Denies myalgias Musculoskeletal: absent: ankle pain, ankle stiffness, ankle swelling Integumentary: Denies pruritus, Denies rash Neurological: Denies numbness, Denies weakness Psychiatric: Denies anxiety, Denies depression Endocrine: Denies fatigue, Denies weight change Past Medical History Past Medical History: Coronary Artery Disease (CAD), Hyperlipidemia, Hypertension, Myocardial Infarction ([place]), Skin Disorder Additional Past Medical History / Comment(s): Coronary artery disease with previous coronary intervention and stenting, advanced COPD, hypertension, hyperlipidemia, complicated diverticulitis requiring colectomy and diverticular colostomy with subsequent reversal, smoker, alcoholism, peripheral vascular disease Last Myocardial Infarction Date:: 2000 History of Any Multi-Drug Resistant Organisms: None Reported Past Surgical History: Bowel Resection, Heart Catheterization With Stent Additional Past Surgical History / Comment(s): aortogram, bowel resection with colostomy, stent right leg. Colonoscopy 2 days ago Past Anesthesia/Blood Transfusion Reactions: No Reported Reaction Date of Last Stent Placement:: 2000 Past Psychological History: No Psychological Hx Reported Smoking Status: Current every day smoker - Past Family History Father Family Medical History: Cancer Additional Family Medical History / Comment(s): lung Mother Family Medical History: Cancer Additional Family Medical History / Comment(s): lung Medications and Allergies Home Medications Medication Instructions Recorded Confirmed Type Atorvastatin Calcium [Lipitor] 10 mg PO HS 04/21/16 05/27/17 History Folic Acid 1 mg PO HS 04/21/16 05/27/17 History Clopidogrel [Plavix] 75 mg PO HS 12/17/16 05/27/17 History Allergies Allergy/AdvReac Type Severity Reaction Status Date / Time hydromorphone HCl AdvReac Hallucinati Verified 05/27/17 10:06 [From Dilaudid] ons Physical Exam Vitals: Vital Signs Temp Pulse Resp BP Pulse Ox 05/27/17 11:36 102 H 18 92/61 96 05/27/17 11:16 96 05/27/17 11:02 100 05/27/17 10:30 100 16 107/61 94 L 05/27/17 09:45 20 05/27/17 09:26 98.7 F 111 H 22 103/56 97 Intake and Output 05/26/17 05/27/17 05/27/17 22:59 06:59 14:59 Other: Weight 68.039 kg Patient Weight 05/28/17 06:59 Weight 68.039 kg Gen. appearance is calm and comfortable likely distress.Head exam was generally normal. There was no scleral icterus or corneal arcus. Mucous membranes were moist.Neck was supple and without jugular venous distension, thyromegaly, or carotid bruits. Carotids were easily palpable bilaterally. There was no adenopathy. Lung sounds are diminished bilaterally. No wheezes or rhonchi or any crackles.Cardiac exam revealed the PMI to be normally situated and sized. The rhythm was regular and no extrasystoles were noted during several minutes of auscultation. The first and second heart sounds were normal and physiologic splitting of the second heart sound was noted. There were no murmurs, rubs, clicks, or gallops.Abdominal exam revealed normal bowel sounds. The abdomen was soft, non-tender, and without masses, organomegaly, or appreciable enlargement of the abdominal aorta. Scars of previous abdominal surgeries presents over the anterior abdominal wall.Examination of the extremities revealed easily palpable radial, femoral and pedal pulses. There was no cyanosis, clubbing or edema. Neurologically the patient is awake and alert and there is no focal neurological deficit. Skeletal examination shows no deformities or joint disease or arthritis.Examination of the skin revealed no evidence of significant rashes, suspicious appearing nevi or other concerning lesions. Results - Laboratory Findings CBC and BMP: 05/27/17 09:45 05/27/17 09:45 PT/INR, D-dimer PT 12.2 sec (9.0-12.0) H 05/27/17 09:45 INR 1.2 (<1.2) H 05/27/17 09:45 D-Dimer 1.13 mg/L FEU (<0.60) H 05/27/17 09:45 Abnormal lab findings: Abnormal Labs 05/27/17 05/27/17 05/27/17 09:45 09:45 09:45 WBC 10.7 H RBC 2.81 L Hgb 8.3 L Hct 25.4 L RDW 19.6 H Neutrophils # 8.5 H PT INR D-Dimer Sodium 135 L Potassium 3.2 L Creatinine 1.54 H Calcium 7.6 L Magnesium 0.5 L* ALT 20 L Alkaline Phosphatase 178 H Total Creatine Kinase 253 H Troponin I 0.035 H* Total Protein 6.1 L Albumin 3.0 L 05/27/17 09:45 WBC RBC Hgb Hct RDW Neutrophils # PT 12.2 H INR 1.2 H D-Dimer 1.13 H Sodium Potassium Creatinine Calcium Magnesium ALT Alkaline Phosphatase Total Creatine Kinase Troponin I Total Protein Albumin - Diagnostic Findings Chest x-ray: image reviewed Assessment and Plan Plan: Assessment 1 shortness of breath on that investigation. No evidence of any venous thrombolic embolic disease. The VQ scan was negative the chest x-ray is consistent with COPD without any acute abnormalities. Patient has advanced COPD with an FEV1 of 40-44% of predicted. He has chronic exertional dyspnea. He suffers from chronic anemia. Baseline echocardiogram showed a preserved LV function from 2016 2 COPD severe. Stable 3 coronary artery disease with previous coronary intervention and stenting 4 history of myocardial infarction 5 chronic renal failure 6 history of complicated diverticulitis according colectomy, colostomy and subsequent reversal. 7 alcoholism 8 smoker 9 hypertension 10 hyperlipidemia 11 chronic anemia received packed RBC transfusion on an outpatient basis. 12 peripheral vascular disease Plan I think this patient shortness of breath is predominantly related to his COPD and chronic anemia is also contributing to his shortness of breath. He has symptoms of chronic bronchitis and he has severe obstructive airway limitation on his only function test that was done last year. Based on this, my recommendation is to start the patient on Symbicort 160/4.52 puffs twice a day. We'll put him on a return of breast units 4 times a day. We'll give him a short course of IV Solu-Medrol. We'll put him on a nicotine patch. Cardiology will even with this patient I highly doubt any underlying cardiac cause for now. Pulmonary embolism is less likely in the VQ scan is negative. Offered nicotine patch. Will need a hematology evaluation regarding his anemia. May benefit from iron and/or Procrit injections knowing that he is a chronic anemia in relation to his chronic renal failure. Check B12 levels. We'll continue to follow.
[2017-05-27] MEDS ORDERED: NICOTINE 21MG/24HR PATCH TRANSDERM SCH (14:15)
[2017-05-27] MEDS ORDERED: DEXTROSE 5%-0.45% NACL 1,000 ML IV SCH (15:00)
--- NOTE | 2017-05-27 15:01 | P.HPIM ---
History of Present Illness H&P Date: 05/27/17 Chief Complaint: Dyspnea and exertion muscle weakness This is a 66-year-old pleasant gentleman patient of Dr. Allen, Dr. Vasquez, Dr. Benitez. He has underlying history of CAD hyperlipidemia hypertension with previous [place], heavy alcohol dependency, pleural effusion last 2014 admitted to the hospital secondary to fatigue, dyspnea and exertion, unable to walk secondary to probably legs, he also has been had having lightheadedness, weight loss, diminished appetite, he was last seen by Dr. Allen 1 month ago for which 2 units of packed red blood cell was given for his anemia, he had end-to-end anastomosis of a diverticular partial colectomy last December [address] Pope for which patient denies any complications related to it. Patient does not have any GI losses including melena hematochezia or hematemesis. Patient has had occasional cough which is his routine, he mentioned that he quit smoking yesterday at one half pack per day, also drinks 2-3 tall bottles of gin mixed with squirt on a daily basis, last intake was yesterday. He mentions that he was scheduled to be in [facility] for alcohol however he is not medically cleared secondary to his current symptoms. She also mentions that he has difficulty in coping up with his anxiety, thus his constant drinking pattern he currently lives with the who has difficulty in his behaviors for alcohol, and is also threatening that if he doesn't change his alcoholic wastes, she would divorce him Emergency room his hemoglobin was 8.3 from a previous of 8.2 last 12/18/2016 megalocytosis noted, INR of 1.2, d-dimer slightly elevated 1.13 sodium low at 135, potassium low at 3.2, magician extremely low at 0.5 glucose 97, chest x- ray failed to reveal any effusion, VQ scan was requested and showed low probability for pulmonary emboli, patient will be admitted secondary to dyspnea and exertion with progressive debility, consult was made with Dr Benitez, echocardiogram would be performed along with physical therapy and occupational therapy, thiamine and nutritional replacement, consult with psychiatry secondary to poor coping skills and alcohol substance disorder. He would be on DT precautions, Ativan when necessary, start on Librium 10 mg 4 times a day Review of Systems Constitutional: Reports as per HPI, Reports anorexia, Reports fatigue, Reports lethargy, Reports weakness, Reports weight loss, Denies chills, Denies chronic headaches, Denies chronic pain, Denies daytime sleepiness, Denies fever, Denies malaise, Denies night sweats, Denies poor appetite, Denies sweats, Denies weight gain Ears, nose, mouth and throat: Reports as per HPI, Denies ant. neck pain, Denies bleeding gums, Denies dental pain, Denies dysphagia, Denies epistaxis, Denies headache, Denies hoarseness, Denies mouth pain, Denies nasal congestion, Denies nasal discharge, Denies neck fullness/pressure, Denies neck lump, Denies nose pain, Denies odynophagia, Denies post-nasal drip, Denies sinus pain, Denies sinus pressure, Denies swelling in mouth, Denies swelling in throat, Denies sore throat, Denies vertigo, Denies voice changes Cardiovascular: Reports as per HPI, Reports decreased exercise tolerance, Reports dyspnea on exertion, Denies chest pain, Denies claudication, Denies edema, Denies high blood pressure, Denies irregular heart beat, Denies leg edema , Denies lightheadedness, Denies orthopnea, Denies palpitations, Denies paroxysmal nocturnal dyspnea, Denies phlebitis, Denies rapid heart beat, Denies shortness of breath, Denies syncope Respiratory: Reports as per HPI, Reports cough, Denies congestion, Denies cough with sputum, Denies dyspnea, Denies excessive sputum, Denies hemoptysis, Denies home oxygen, Denies pain, Denies pain on inspiration, Denies pleurisy, Denies respiratory infections, Denies sleep apnea, Denies snoring, Denies wheezing Gastrointestinal: Reports as per HPI, Denies abdominal pain, Denies belching, Denies bloating, Denies BRBPR, Denies change in bowel habits, Denies coffee ground emesis, Denies constipation, Denies diarrhea, Denies dyspepsia, Denies early satiety, Denies excessive gas, Denies heartburn, Denies hematemesis, Denies hematochezia, Denies indigestion, Denies jaundice, Denies lactose intolerance, Denies loss of appetite, Denies melena, Denies nausea, Denies vomiting Genitourinary: Reports as per HPI, Denies decreased libido, Denies difficulties fathering child, Denies discharge, Denies dysuria, Denies erectile dysfunction, Denies flank pain, Denies genital pain, Denies genital sores, Denies hematuria, Denies impotence, Denies incontinence, Denies kidney stones, Denies nocturia, Denies polyuria, Denies testicular lump, Denies testicular pain, Denies urinary frequency, Denies urinary hesitancy, Denies urinary retention Musculoskeletal: Reports as per HPI, Reports gait dysfunction, Reports limitation of motion, Reports muscle weakness, Reports myalgias, Denies arm numbness/tingling, Denies atrophy, Denies fractures, Denies frequent falls, Denies hot joints, Denies leg numbness/tingling, Denies loss of height, Denies low back pain, Denies morning stiffness, Denies muscle cramps, Denies neck pain , Denies neck stiffness, Denies prior amputations, Denies redness of joints, Denies shooting arm pain, Denies shooting leg pain Integumentary: Reports as per HPI, Denies acne, Denies boils, Denies brittle nails, Denies change in hair/nails, Denies color changes, Denies darkening of skin, Denies depigmentation, Denies dryness, Denies foot/leg ulcers, Denies growths, Denies hirsutism, Denies lesions, Denies onychomycosis, Denies pruritus , Denies rash, Denies sores, Denies striae, Denies unusual bruising, Denies wounds Neurological: Reports as per HPI, Denies aphasia, Denies ataxia, Denies balance difficulties, Denies burning pain, Denies change in mentation, Denies change in smell/taste, Denies change in speech, Denies confusion, Denies convulsions, Denies double vision, Denies gait dysfunction, Denies head injury, Denies headaches, Denies hearing difficulties, Denies lack of coordination, Denies loss of vision, Denies memory loss, Denies migraines, Denies motor disturbance, Denies numbness, Denies paralysis, Denies paresthesias, Denies seizures, Denies sensory deficit, Denies spasticity, Denies syncope, Denies tic, Denies tingling , Denies transient paralysis, Denies tremors, Denies vertigo, Denies weakness, Denies visual changes Psychiatric: Reports as per HPI, Denies anhedonia, Denies anxiety, Denies anxiety attacks, Denies change in appetite, Denies change in libido, Denies change in sleep habits, Denies confusion, Denies depression, Denies difficulty concentrating, Denies disorientation, Denies hallucinations, Denies hopelessness , Denies hypersomnia, Denies insomnia, Denies irritability, Denies memory loss, Denies mood swings, Denies paranoia, Denies sadness/tearfulness, Denies sleep disturbances, Denies suicidal ideation Endocrine: Reports as per HPI, Denies cold intolerance, Denies deepening of the voice, Denies excessive sweating, Denies excessive thirst, Denies fatigue, Denies flushing, Denies heat intolerance, Denies high blood sugars, Denies increase in ring/shoe/hat size, Denies low blood sugars, Denies nocturia, Denies palpitations, Denies polydipsia, Denies polyphagia, Denies polyuria, Denies proptosis, Denies recent glucocorticoid use, Denies thyroid mass, Denies weight change Hematologic/Lymphatic: Reports as per HPI, Denies easy bleeding, Denies easy bruising, Denies lymphadenopathy, Denies lymphedema, Denies thrombophilia Allergic/Immunologic: Reports as per HPI, Denies allergic rhinitis, Denies anaphylaxis, Denies angioedema, Denies gluten intolerance, Denies persistent infections, Denies seasonal allergies, Denies urticaria, Denies wheezing Past Medical History Past Medical History: Coronary Artery Disease (CAD), Hyperlipidemia, Hypertension, Myocardial Infarction ([place]), Skin Disorder Additional Past Medical History / Comment(s): Coronary artery disease with previous coronary intervention and stenting, advanced COPD, hypertension, hyperlipidemia, complicated diverticulitis requiring colectomy and diverticular colostomy with subsequent reversal, smoker, alcoholism, peripheral vascular disease Last Myocardial Infarction Date:: 2000 History of Any Multi-Drug Resistant Organisms: None Reported Past Surgical History: Bowel Resection, Heart Catheterization With Stent Additional Past Surgical History / Comment(s): aortogram, bowel resection with colostomy, stent right leg. Colonoscopy 2 days ago Past Anesthesia/Blood Transfusion Reactions: No Reported Reaction Date of Last Stent Placement:: 2000 Past Psychological History: Anxiety Smoking Status: Current every day smoker (One half pack per day) Past Alcohol Use History: Heavy (3 tall of approximately 24 ounces per bottles of gin with squirt per day equivalent to close 60 ounces) - Past Family History Father Family Medical History: Cancer Additional Family Medical History / Comment(s): lung Mother Family Medical History: Cancer Additional Family Medical History / Comment(s): lung Medications and Allergies Home Medications Medication Instructions Recorded Confirmed Type Atorvastatin Calcium [Lipitor] 10 mg PO HS 04/21/16 05/27/17 History Folic Acid 1 mg PO HS 04/21/16 05/27/17 History Clopidogrel [Plavix] 75 mg PO HS 12/17/16 05/27/17 History Allergies Allergy/AdvReac Type Severity Reaction Status Date / Time hydromorphone HCl AdvReac Hallucinati Verified 05/27/17 10:06 [From Dilaudid] ons Physical Exam Vitals: Vital Signs Temp Pulse Resp BP Pulse Ox 05/27/17 11:36 102 H 18 92/61 96 05/27/17 11:16 96 05/27/17 11:02 100 05/27/17 10:30 100 16 107/61 94 L 05/27/17 09:45 20 05/27/17 09:26 98.7 F 111 H 22 103/56 97 Intake and Output 05/26/17 05/27/17 05/27/17 22:59 06:59 14:59 Other: Weight 68.039 kg Patient Weight 05/28/17 06:59 Weight 68.039 kg - Constitutional General appearance: cooperative, no acute distress - EENT Eyes: anicteric sclerae, EOMI, PERRLA, dentition normal, normal appearance ENT: hard of hearing, NA/AT, normal oropharynx - Neck Neck: normal ROM - Respiratory Respiratory: bilateral: CTA, negative: diminished, dullness, rales - Cardiovascular Rhythm: regular Heart sounds: normal: S1, S2 Abnormal Heart Sounds: no systolic murmur, no diastolic murmur, no rub, no S3 Gallop, no S4 Gallop, no click, no other - Gastrointestinal General gastrointestinal: normal bowel sounds, soft - Integumentary Integumentary: normal, normal turgor - Neurologic Neurologic: CNII-XII intact, focal deficits - Musculoskeletal Musculoskeletal: gait normal - Psychiatric Psychiatric: A&O x's 3, appropriate affect, intact judgment & insight Results CBC & Chem 7: 05/27/17 09:45 05/27/17 09:45 Labs: Abnormal Lab Results - Last 24 Hours (Table) 05/27/17 05/27/17 05/27/17 Range/Units 09:45 09:45 09:45 WBC 10.7 H (3.8-10.6) k/uL RBC 2.81 L (4.30-5.90) m/uL Hgb 8.3 L (13.0-17.5) gm/dL Hct 25.4 L (39.0-53.0) % RDW 19.6 H (11.5-15.5) % Neutrophils # 8.5 H (1.3-7.7) k/uL PT (9.0-12.0) sec INR (<1.2) D-Dimer (<0.60) mg/L FEU Sodium 135 L (137-145) mmol/L Potassium 3.2 L (3.5-5.1) mmol/L Creatinine 1.54 H (0.66-1.25) mg/dL Calcium 7.6 L (8.4-10.2) mg/dL Magnesium 0.5 L* (1.6-2.3) mg/dL ALT 20 L (21-72) U/L Alkaline Phosphatase 178 H (38-126) U/L Total Creatine Kinase 253 H (55-170) U/L Troponin I 0.035 H* (0.000-0.034) ng/mL Total Protein 6.1 L (6.3-8.2) g/dL Albumin 3.0 L (3.5-5.0) g/dL 05/27/17 Range/Units 09:45 WBC (3.8-10.6) k/uL RBC (4.30-5.90) m/uL Hgb (13.0-17.5) gm/dL Hct (39.0-53.0) % RDW (11.5-15.5) % Neutrophils # (1.3-7.7) k/uL PT 12.2 H (9.0-12.0) sec INR 1.2 H (<1.2) D-Dimer 1.13 H (<0.60) mg/L FEU Sodium (137-145) mmol/L Potassium (3.5-5.1) mmol/L Creatinine (0.66-1.25) mg/dL Calcium (8.4-10.2) mg/dL Magnesium (1.6-2.3) mg/dL ALT (21-72) U/L Alkaline Phosphatase (38-126) U/L Total Creatine Kinase (55-170) U/L Troponin I (0.000-0.034) ng/mL Total Protein (6.3-8.2) g/dL Albumin (3.5-5.0) g/dL Laboratory Results WBC 10.7 k/uL (3.8-10.6) H 05/27/17 09:45 RBC 2.81 m/uL (4.30-5.90) L 05/27/17 09:45 Hgb 8.3 gm/dL (13.0-17.5) L 05/27/17 09:45 Hct 25.4 % (39.0-53.0) L 05/27/17 09:45 MCV 90.5 fL (80.0-100.0) 05/27/17 09:45 MCH 29.7 pg (25.0-35.0) 05/27/17 09:45 MCHC 32.8 g/dL (31.0-37.0) 05/27/17 09:45 RDW 19.6 % (11.5-15.5) H 05/27/17 09:45 Plt Count 327 k/uL (150-450) 05/27/17 09:45 Neutrophils % 79 % 05/27/17 09:45 Lymphocytes % 15 % 05/27/17 09:45 Monocytes % 4 % 05/27/17 09:45 Eosinophils % 0 % 05/27/17 09:45 Basophils % 0 % 05/27/17 09:45 Neutrophils # 8.5 k/uL (1.3-7.7) H 05/27/17 09:45 Lymphocytes # 1.6 k/uL (1.0-4.8) 05/27/17 09:45 Monocytes # 0.5 k/uL (0-1.0) 05/27/17 09:45 Eosinophils # 0.1 k/uL (0-0.7) 05/27/17 09:45 Basophils # 0.0 k/uL (0-0.2) 05/27/17 09:45 Anisocytosis Slight 05/27/17 09:45 PT 12.2 sec (9.0-12.0) H 05/27/17 09:45 INR 1.2 (<1.2) H 05/27/17 09:45 APTT 24.9 sec (22.0-30.0) 05/27/17 09:45 D-Dimer 1.13 mg/L FEU (<0.60) H 05/27/17 09:45 Sodium 135 mmol/L (137-145) L 05/27/17 09:45 Potassium 3.2 mmol/L (3.5-5.1) L 05/27/17 09:45 Chloride 99 mmol/L (98-107) 05/27/17 09:45 Carbon Dioxide 23 mmol/L (22-30) 05/27/17 09:45 Anion Gap 13 mmol/L 05/27/17 09:45 BUN 12 mg/dL (9-20) 05/27/17 09:45 Creatinine 1.54 mg/dL (0.66-1.25) H 05/27/17 09:45 Est GFR (MDRD) Af Amer 55 (>60 ml/min/1.73 sqM) 05/27/17 09:45 Est GFR (MDRD) Non-Af 46 (>60 ml/min/1.73 sqM) 05/27/17 09:45 Glucose 97 mg/dL (74-99) 05/27/17 09:45 Calcium 7.6 mg/dL (8.4-10.2) L 05/27/17 09:45 Magnesium 0.5 mg/dL (1.6-2.3) L* 05/27/17 09:45 Total Bilirubin 1.3 mg/dL (0.2-1.3) 05/27/17 09:45 AST 52 U/L (17-59) 05/27/17 09:45 ALT 20 U/L (21-72) L 05/27/17 09:45 Alkaline Phosphatase 178 U/L (38-126) H 05/27/17 09:45 Total Creatine Kinase 253 U/L (55-170) H 05/27/17 09:45 CK-MB (CK-2) 2.4 ng/mL (0.0-2.4) 05/27/17 09:45 CK-MB (CK-2) Rel Index 0.9 05/27/17 09:45 Troponin I 0.035 ng/mL (0.000-0.034) H* 05/27/17 09:45 NT-Pro-B Natriuret Pep 1320 pg/mL 05/27/17 09:45 Total Protein 6.1 g/dL (6.3-8.2) L 05/27/17 09:45 Albumin 3.0 g/dL (3.5-5.0) L 05/27/17 09:45 Stool Occult Blood Negative (Negative) 05/27/17 09:45 Blood Type B Positive 05/27/17 09:45 Blood Type Recheck No 05/27/17 09:45 Antibody Screen NEGATIVE 05/27/17 09:45 Spec Expiration Date 05/30/2017 - 234405/27/17 09:45 Thrombosis Risk Factor Assmnt - DVT/VTE Prophylaxis DVT/VTE Prophylaxis: Mechanical Prophylaxis ordered, Low risk, early ambulation encouraged - Choose All That Apply Each Risk Factor Represents 2 Points: Age 61-74 years Thrombosis Risk Factor Assessment Total Risk Factor Score: 2 Thrombosis Risk Factor Assessment Level: Low Risk Assessment and Plan Plan: 1. Dyspnea on exertion, multifactorial, secondary to anemia, severe nutritional deficiencies, chronic alcoholism, underlying CAD, and COPD. There was no pleural effusion noted on chest x-ray, negative for pulmonary emboli on a VQ scan, consult was made with Dr. Benitez, patient's troponin marginally elevated. Echocardiogram is requested, physical therapy and occasional therapy , Solu-Medrol was started IV, with nebulized albuterol and Atrovent 2. 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 No ongoing GI losses noted most likely nutritional deficiency from chronic alcoholism, iron panel requested, Start on Protonix. We will transfuse for under 7.0 hemoglobin stool Hemoccult bloohim a d negative 3. Prior GI bleed December 2016 due to recent polypectomy and fatty tumor removal. Dr. Redd no complications identified at this time 4. Chronic protein calorie nutrition, moderate with alcohol dependency, nutritional supplementation 5. Heavy alcohol dependency, had tried multiple times to quit, has been very unsuccessful, patient was seen by mental health for coping skills, patient will be started on Librium 10 mg 4 times a day scheduled with when necessary Ativan for delirium tremens. Thiamine was started 6. Elevated troponin, History of coronary artery disease status post PCI in 2 stent placement in the past., echocardiogram and cardiac biomarkers started, start on atenolol 25 mg twice a day hold for blood pressure under 90, Plavix would be restarted, awaiting Hemoccult test patient on heparin, cardiology consulted 7. Marginally low blood pressure, IV fluids at 75 mL an with parameters for atenolol 8. CK D stage III baseline 1.51 avoid nephrotoxins and monitor for rhabdo, CPK elevated 9. Rhabdomyolysis, secondary to muscle deconditioning and myoclonus , monitor CPKs, IV hydration 10. Hypertension. Continue atenolol 11 COPD, stable, suspect mild exacerbation, patient's on Symbicort, Solu- Medrol 40 mg every 6 10. Tobacco use and dependence. Smoking cessation. Nicotine patch. 11. Magnesium deficiency, Rissman's in progress 11. Gastrointestinal prophylaxis. Protonix 12. DVT prophylaxis. MARYSE phan Discharge plan: subacute or inpatient rehab patient would need medical clearance for his planned alcohol with the rehabilitation at [facility]
[2017-05-27] MEDS: methylPREDNISolone SOD SUCCI 40 MG/ML 1 ML VIAL IV SCH ×2 (15:43→17:28)
[2017-05-27] MEDS: NICOTINE 14MG/24HR PATCH TRANSDERM SCH (15:43)
[2017-05-27 15:52] LABS: Vitamin B12 >1000 pg/mL (239-931)
[2017-05-27 16:16] LABS: Creatine Kinase MB 1.7 ng/mL (0.0-2.4); Troponin I 0.021 ng/mL (0.000-0.034)
[2017-05-27 16:41] LABS: Glucose,Whole Blood 154 mg/dL (75-99)
[2017-05-27] MEDS: THIAMINE 100 MG TAB PO SCH (17:29)
--- NOTE | 2017-05-27 17:31 | P.CRDCN ---
History of Present Illness Consult date: 05/27/17 Chief complaint: Shortness of breath History of present illness: This is a pleasant 66-year-old gentleman Y following the office as an outpatient with a known history of coronary artery disease and prior stenting, peripheral arterial disease and status post a stenting of the left SFA, COPD, chronic kidney disease, as well as multiple comorbid conditions presented to the hospital complaining of shortness of breath. The patient unfortunately continues to drink and smoke heavily. He has not been eating well lately. He stated that the shortness of breath started about 3 weeks ago. He describes exertional dyspnea without orthopnea or PND. No lower extremities edema. He denies having any chest pain or chest discomfort. He has been experiencing a cough productive of sputum without any fever or any chills. The d-dimer came in to be slightly abnormal but subsequently the VQ scan showed low probably for PE. The EKG showed only sinus tachycardia. The cardiac enzymes were checked and the first set of troponin came in to be slightly abnormal. The BNP came in to be around 1300s. Beside that the hemoglobin is low. The patient just received some blood transfusion few weeks ago by his primary care physician. Past Medical History Past Medical History: Coronary Artery Disease (CAD), Hyperlipidemia, Hypertension, Myocardial Infarction (OK), Skin Disorder Additional Past Medical History / Comment(s): Coronary artery disease with previous coronary intervention and stenting, advanced COPD, hypertension, hyperlipidemia, complicated diverticulitis requiring colectomy and diverticular colostomy with subsequent reversal, smoker, alcoholism, peripheral vascular disease Last Myocardial Infarction Date:: 2000 History of Any Multi-Drug Resistant Organisms: None Reported Past Surgical History: Bowel Resection, Heart Catheterization With Stent Additional Past Surgical History / Comment(s): aortogram, bowel resection with colostomy, stent right leg. Colonoscopy 2 days ago Past Anesthesia/Blood Transfusion Reactions: No Reported Reaction Date of Last Stent Placement:: 2000 Past Psychological History: Anxiety Smoking Status: Current every day smoker (One half pack per day) Past Alcohol Use History: Heavy (3 tall of approximately 24 ounces per bottles of gin with squirt per day equivalent to close 60 ounces) - Past Family History Father Family Medical History: Cancer Additional Family Medical History / Comment(s): lung Mother Family Medical History: Cancer Additional Family Medical History / Comment(s): lung Medications and Allergies Home Medications Medication Instructions Recorded Confirmed Type Atorvastatin Calcium [Lipitor] 10 mg PO HS 04/21/16 05/27/17 History Folic Acid 1 mg PO HS 04/21/16 05/27/17 History Clopidogrel [Plavix] 75 mg PO HS 12/17/16 05/27/17 History Allergies Allergy/AdvReac Type Severity Reaction Status Date / Time hydromorphone HCl AdvReac Hallucinati Verified 05/27/17 10:06 [From Dilaudid] ons Physical Exam Vitals: Vital Signs Temp Pulse Pulse Resp BP BP Pulse Ox 05/27/17 15:36 87 20 05/27/17 15:34 98.2 F 87 20 98/64 100 05/27/17 14:24 91 18 106/59 99 05/27/17 12:00 92 18 101/92 99 05/27/17 11:36 102 H 18 92/61 96 05/27/17 11:26 98.2 F 87 20 98/64 100 05/27/17 11:16 96 05/27/17 11:02 100 05/27/17 10:30 100 16 107/61 94 L 05/27/17 09:45 20 05/27/17 09:26 98.7 F 111 H 22 103/56 97 Intake and Output 05/27/17 05/27/17 05/27/17 06:59 14:59 22:59 Intake Total 300 Balance 300 Intake: Intake, IV Titration 200 Amount Magnesium Sulfate-D5w Pmx 200 1 gm In Dextrose/Water 1 100ml.bag @ 100 mls/hr IVPB Q1H [facility] Rx#: [id number] Oral 100 Other: Weight 68.039 kg Patient Weight 05/28/17 06:59 Weight 68.039 kg - Constitutional General appearance: no acute distress - Respiratory Respiratory: bilateral: CTA - Cardiovascular Rhythm: regular Heart sounds: normal: S1, S2 Results 05/27/17 09:45 05/27/17 09:45 Cardiac Enzymes 05/27/17 05/27/17 05/27/17 Range/Units 09:45 09:45 15:26 AST 52 (17-59) U/L CK-MB (CK-2) 2.4 1.7 (0.0-2.4) ng/mL Troponin I 0.035 H* 0.021 (0.000-0.034) ng/mL Coagulation 05/27/17 Range/Units 09:45 PT 12.2 H (9.0-12.0) sec APTT 24.9 (22.0-30.0) sec CBC 05/27/17 Range/Units 09:45 WBC 10.7 H (3.8-10.6) k/uL RBC 2.81 L (4.30-5.90) m/uL Hgb 8.3 L (13.0-17.5) gm/dL Hct 25.4 L (39.0-53.0) % Plt Count 327 (150-450) k/uL Comprehensive Metabolic Panel 05/27/17 Range/Units 09:45 Sodium 135 L (137-145) mmol/L Potassium 3.2 L (3.5-5.1) mmol/L Chloride 99 (98-107) mmol/L Carbon Dioxide 23 (22-30) mmol/L BUN 12 (9-20) mg/dL Creatinine 1.54 H (0.66-1.25) mg/dL Glucose 97 (74-99) mg/dL Calcium 7.6 L (8.4-10.2) mg/dL AST 52 (17-59) U/L ALT 20 L (21-72) U/L Alkaline Phosphatase 178 H (38-126) U/L Total Protein 6.1 L (6.3-8.2) g/dL Albumin 3.0 L (3.5-5.0) g/dL Current Medications Generic Name Dose Route Start Last Admin Trade Name Freq PRN Reason Stop Dose Admin Acetaminophen 650 mg 05/27/17 11:02 Tylenol Tab PO Q6HR PRN Mild Pain or Fever > 100.5 Atorvastatin Calcium 10 mg 05/27/17 21:00 Lipitor PO HS [facility] Budesonide/Formoterol Fumarate 2 puff 05/27/17 20:00 Symbicort 160-4.5 Mcg Inhaler INHALATION RT-BID [facility] Chlordiazepoxide HCl 10 mg 05/27/17 14:45 05/27/17 15:42 Librium PO 10 mg QID [facility] Administration Clopidogrel Bisulfate 75 mg 05/27/17 21:00 Plavix PO HS [facility] Folic Acid 1 mg 05/27/17 21:00 Folic Acid PO HS [facility] Heparin Sodium (Porcine) 0 unit 05/27/17 10:29 Heparin IV PER PROTOCOL PRN Low PTT Protocol Sodium Chloride 1,000 mls @ 100 mls/hr 05/27/17 10:30 05/27/17 11:02 Saline 0.9% IV 100 mls/hr .Q10H [facility] Administration Heparin Sodium/Dextrose 25,000 500 mls @ 16.32 mls/hr 05/27/17 14:00 14:11 unit/ IV Solution IV 12 units/kg/hr .Q24H [facility] 16.32 mls/hr Protocol Administration 12 UNITS/KG/HR Insulin Human Lispro 0 unit 05/27/17 17:30 Humalog SQ ACHS [facility] Protocol Lorazepam 1 mg 05/27/17 10:41 Ativan IV Q2HR PRN CIWA 8 or 9 Lorazepam 1 mg 05/27/17 10:41 Ativan IV Q1HR PRN CIWA 10 to 15 Lorazepam 2 mg 05/27/17 10:41 Ativan IV 05/29/17 10:41 Q10M PRN CIWA 16 or higher Methylprednisolone Sodium Succinate 40 mg 05/27/17 14:15 05/27/17 15:43 Solu-Medrol IV 40 mg Q6HR [facility] Administration Metoprolol Tartrate 25 mg 05/27/17 21:00 Lopressor PO BID [facility] Naloxone HCl 0.2 mg 05/27/17 11:02 Narcan IV Q2M PRN Opioid Reversal Nicotine 1 patch 05/27/17 14:45 05/27/17 15:43 Habitrol 14mg/24hr Patch TRANSDERM 1 patch DAILY [facility] Administration Ondansetron HCl 4 mg 05/27/17 11:02 Zofran IVP Q8HR PRN Nausea And Vomiting Thiamine HCl 100 mg 05/27/17 17:00 Vitamin B-1 PO BID@1200,1700 [facility] Intake and Output 05/27/17 05/27/17 05/27/17 06:59 14:59 22:59 Intake Total 300 Balance 300 Intake: Intake, IV Titration 200 Amount Magnesium Sulfate-D5w Pmx 200 1 gm In Dextrose/Water 1 100ml.bag @ 100 mls/hr IVPB Q1H [facility] Rx#: [id number] Oral 100 Other: Weight 68.039 kg Patient Weight 05/28/17 06:59 Weight 68.039 kg 05/27/17 09:45 05/27/17 09:45 Assessment and Plan Plan: This is a pleasant 66-year-old gentleman with known CAD, CAD, COPD, as well as multiple comorbid conditions presented to the hospital with shortness of breath. The patient continues to smoke and drink very heavily. The patient dyspnea is likely multifactorial atrial and related to COPD exacerbation as well as anemia more than CHF. The patient doesn't seems to be in overt congestive heart failure at this point. He is laying flat in bed without being short of breath. I will obtain an echocardiogram was Doppler to assess the LV function. I am concerned about severe cardiomyopathy in view of the significant alcohol abuse. Also will follow-up with the serial cardiac enzymes to rule out any acute coronary event behind his symptoms.
[2017-05-27] MEDS: INSULIN LISPRO (humaLOG) 300 UNIT/3 ML VIAL SQ SCH ×2 (17:32→23:10)
[2017-05-27 17:42] LABS: Magnesium 1.5 mg/dL (1.6-2.3); Potassium 3.5 mmol/L (3.5-5.1)
[2017-05-27] MEDS: ATORVASTATIN 10 MG TAB PO SCH (20:01)
[2017-05-27] MEDS: FOLIC ACID 1 MG TAB PO SCH (20:02)
[2017-05-27] MEDS: SYMBICORT 160-4.5 MCG INHALER INHALATION SCH (20:09)
[2017-05-27] MEDS ORDERED: METOPROLOL TARTRATE 25 MG TAB PO SCH (21:00)
[2017-05-27] MEDS ORDERED: CLOPIDOGREL 75 MG TAB PO SCH (21:00)
[2017-05-27 21:11] LABS: Glucose,Whole Blood 148 mg/dL (75-99)
[2017-05-27 22:12] LABS: Creatine Kinase MB 1.4 ng/mL (0.0-2.4); Troponin I 0.015 ng/mL (0.000-0.034)
[2017-05-28] MEDS: MELATONIN 5 MG TABLET PO SCH ×2 (00:12→22:45)
[2017-05-28] MEDS: methylPREDNISolone SOD SUCCI 40 MG/ML 1 ML VIAL IV SCH ×2 (00:13→06:44)
[2017-05-28 04:25] LABS: Creatine Kinase 148 U/L (55-170)
[2017-05-28 04:36] LABS: Creatine Kinase MB 1.1 ng/mL (0.0-2.4); Troponin I <0.012 ng/mL (0.000-0.034)
[2017-05-28 06:19] LABS: Glucose,Whole Blood 172 mg/dL (75-99)
[2017-05-28] MEDS: INSULIN LISPRO (humaLOG) 300 UNIT/3 ML VIAL SQ SCH ×4 (06:44→22:47)
[2017-05-28] MEDS: SODIUM CHLORIDE 0.9% 1,000 ML IV SCH ×2 (06:52→08:25)
[2017-05-28 06:53] LABS: Anisocytosis Slight; Basophils % (A) 0 %; CH 29.2; CHCM 30.6; Eosinophils % (A) 0 %; Hypochromasia Moderate; Luc # (Auto) 0.04; Luc % (Auto) 1; Lymphocytes # (A) 0.6 k/uL (1.0-4.8); Lymphocytes % (A) 9 %; MCH 29.9 pg (25.0-35.0); MCHC 31.3 g/dL (31.0-37.0); Macrocytosis Slight; Mean Platelet Volume 7.8; Monocytes # (A) 0.1 k/uL (0-1.0); Monocytes % (A) 2 %; Neutrophils # (A) 5.7 k/uL (1.3-7.7); Neutrophils % (A) 88 %; RBC 2.19 m/uL (4.30-5.90); RDW 18.6 % (11.5-15.5); WBC 6.4 k/uL (3.8-10.6); WBC (Perox) 6.87
[2017-05-28 07:05] LABS: HGB 6.6 gm/dL (13.0-17.5); MCV 95.5 fL (80.0-100.0)
[2017-05-28 07:12] LABS: ALT 27 U/L (21-72); AST 47 U/L (17-59); Alkaline Phosphatase 169 U/L (38-126); Anion Gap 9 mmol/L; Blood Urea Nitrogen 15 mg/dL (9-20); Calcium 6.8 mg/dL (8.4-10.2); Carbon Dioxide 20 mmol/L (22-30); Chloride 106 mmol/L (98-107); Creatine Kinase 150 U/L (55-170); Glucose 144 mg/dL (74-99); Magnesium 1.6 mg/dL (1.6-2.3); Non-African American GFR(MDRD) 56 (>60 ml/min/1.73 sqM); Potassium 3.5 mmol/L (3.5-5.1); Sodium 135 mmol/L (137-145); Total Bilirubin 0.4 mg/dL (0.2-1.3); Total Protein 5.2 g/dL (6.3-8.2)
[2017-05-28] MEDS: NICOTINE 14MG/24HR PATCH TRANSDERM SCH (08:25)
[2017-05-28] MEDS: SYMBICORT 160-4.5 MCG INHALER INHALATION SCH ×2 (08:30→19:32)
[2017-05-28] MEDS: METOPROLOL TARTRATE 12.5 MG TAB PO SCH ×2 (08:31→23:09)
[2017-05-28 11:41] LABS: Iron Saturation 94.32 (15.00-50.00)
--- NOTE | 2017-05-28 12:04 | P.PN ---
Subjective Principal diagnosis: Dyspnea This is a pleasant 66-year-old gentleman who follows with Dr. Vasquez the office as an outpatient. He has a known history of CAD with prior stenting, PAD status post stenting of the left SFA, COPD, chronic kidney disease, and recent anemia requiring transfusion as an outpatient. He presented to the ER with c/o shortness of breath. The patient unfortunately continues to drink and smoke heavily. He has not been eating well lately. He stated that the shortness of breath started about 3 weeks ago. He describes exertional dyspnea without orthopnea or PND. No lower extremity edema. He denies having any chest pain or chest discomfort. He has been experiencing a cough productive of sputum without any fever or any chills. D-dimer came in to be slightly abnormal, subsequent VQ scan showed low probably for PE. The EKG showed only sinus tachycardia. The cardiac enzymes were checked and the first set of troponin came in to be slightly abnormal but last 3 sets arm normal. The BNP came in to be around 1300s. His Hgb was low at 8.2 on admission. He has been on IV heparin due to initial abnormal troponin level. Hgb this morning is 6.6. Upon examination, the patient is resting comfortably in bed. He continues to feel weak, short of breath and tired. His systolic blood pressure is running 80s-90s and he is tachycardic. Objective - Vital Signs Vital signs: Vital Signs Temp 97.1 F L 05/28/17 11:11 Pulse 72 05/28/17 11:11 Resp 18 05/28/17 11:11 BP 91/61 05/28/17 11:11 Pulse Ox 95 05/28/17 11:11 Intake & Output 05/27/17 05/28/17 05/28/17 18:59 06:59 18:59 Intake Total 420 1325.79 286.55 Balance 420 1325.79 286.55 Weight 68.039 kg 73.5 kg Intake: Intake, IV Titration 200 1325.79 166.55 Amount Heparin Sodium,Porcine/ 225.79 166.55 D5w Pmx 25,000 unit In Dextrose/Water 1 500ml. bag @ 12 UNITS/KG/HR 16. 32 mls/hr IV .Q24H [facility] Rx #:[id number] Magnesium Sulfate-D5w Pmx 200 1 gm In Dextrose/Water 1 100ml.bag @ 100 mls/hr IVPB Q1H [facility] Rx#: [id number] Sodium Chloride 0.9% 1, 1100 000 ml @ 100 mls/hr IV . Q10H [facility] Rx#:[id number] Oral 220 120 Blood Product 0 Rc As-1 Unit 0 [id number] Other: Voiding Method Bedside Commode Bedside Commode Urinal Urinal - Exam PHYSICAL EXAMINATION: HEENT: Head is atraumatic, normocephalic. Pupils equal, round. Neck is supple. There is no elevated jugular venous pressure. Generalized pallor. HEART EXAMINATION: Heart sounds regular, S1 and S2 normal a systolic murmur at the base. CHEST EXAMINATION: Lungs reveal expiratory wheezing throughout. No chest wall tenderness is noted on palpation or with deep breathing. ABDOMEN: Soft, nontender. Bowel sounds are heard. No organomegaly noted. EXTREMITIES: 2+ peripheral pulses with no evidence of peripheral edema and no calf tenderness noted. NEUROLOGIC patient is awake, alert and oriented x3. . - Labs CBC & Chem 7: 05/28/17 06:13 05/28/17 06:13 Labs: Abnormal Lab Results - Last 24 Hours (Table) 05/27/17 05/27/17 05/27/17 Range/Units 09:45 09:45 15:26 RBC (4.30-5.90) m/uL Hgb (13.0-17.5) gm/dL Hct (39.0-53.0) % RDW (11.5-15.5) % Lymphocytes # (1.0-4.8) k/uL APTT (22.0-30.0) sec Sodium (137-145) mmol/L Carbon Dioxide (22-30) mmol/L Creatinine (0.66-1.25) mg/dL Glucose (74-99) mg/dL POC Glucose (mg/dL) (75-99) mg/dL Calcium (8.4-10.2) mg/dL Magnesium (1.6-2.3) mg/dL Alkaline Phosphatase (38-126) U/L Total Creatine Kinase 210 H (55-170) U/L Total Protein (6.3-8.2) g/dL Albumin (3.5-5.0) g/dL Vitamin B12 >1000 H (239-931) pg/mL Crossmatch See Detail 05/27/17 05/27/17 05/27/17 Range/Units 16:37 16:58 21:02 RBC (4.30-5.90) m/uL Hgb (13.0-17.5) gm/dL Hct (39.0-53.0) % RDW (11.5-15.5) % Lymphocytes # (1.0-4.8) k/uL APTT (22.0-30.0) sec Sodium (137-145) mmol/L Carbon Dioxide (22-30) mmol/L Creatinine (0.66-1.25) mg/dL Glucose (74-99) mg/dL POC Glucose (mg/dL) 154 H 148 H (75-99) mg/dL Calcium (8.4-10.2) mg/dL Magnesium 1.5 L (1.6-2.3) mg/dL Alkaline Phosphatase (38-126) U/L Total Creatine Kinase (55-170) U/L Total Protein (6.3-8.2) g/dL Albumin (3.5-5.0) g/dL Vitamin B12 (239-931) pg/mL Crossmatch 05/27/17 05/27/17 05/28/17 Range/Units 21:05 21:05 06:13 RBC 2.19 L (4.30-5.90) m/uL Hgb 6.6 L* D (13.0-17.5) gm/dL Hct 21.0 L (39.0-53.0) % RDW 18.6 H (11.5-15.5) % Lymphocytes # 0.6 L (1.0-4.8) k/uL APTT 43.0 H (22.0-30.0) sec Sodium (137-145) mmol/L Carbon Dioxide (22-30) mmol/L Creatinine (0.66-1.25) mg/dL Glucose (74-99) mg/dL POC Glucose (mg/dL) (75-99) mg/dL Calcium (8.4-10.2) mg/dL Magnesium (1.6-2.3) mg/dL Alkaline Phosphatase (38-126) U/L Total Creatine Kinase 175 H (55-170) U/L Total Protein (6.3-8.2) g/dL Albumin (3.5-5.0) g/dL Vitamin B12 (239-931) pg/mL Crossmatch 05/28/17 05/28/17 05/28/17 Range/Units 06:13 06:13 06:16 RBC (4.30-5.90) m/uL Hgb (13.0-17.5) gm/dL Hct (39.0-53.0) % RDW (11.5-15.5) % Lymphocytes # (1.0-4.8) k/uL APTT 43.0 H (22.0-30.0) sec Sodium 135 L (137-145) mmol/L Carbon Dioxide 20 L (22-30) mmol/L Creatinine 1.29 H (0.66-1.25) mg/dL Glucose 144 H (74-99) mg/dL POC Glucose (mg/dL) 172 H (75-99) mg/dL Calcium 6.8 L (8.4-10.2) mg/dL Magnesium (1.6-2.3) mg/dL Alkaline Phosphatase 169 H (38-126) U/L Total Creatine Kinase (55-170) U/L Total Protein 5.2 L (6.3-8.2) g/dL Albumin 2.5 L (3.5-5.0) g/dL Vitamin B12 (239-931) pg/mL Crossmatch Assessment and Plan Plan: Assessment and plan #1 symptoms of shortness of breath, likely multifactorial including anemia and underlying COPD #2 COPD #3 anemia, recently underwent transfusion as an outpatient, current hemoglobin 6.6 #4 alcohol abuse #5 nicotine dependence #6 history of coronary artery disease with prior stenting #7 history of PAD with prior stenting #8 hypertension #9 hyperlipidemia From cardiology's perspective, we will order one unit of packed red cells to be transfused this morning. He will stop IV heparin. We'll continue to follow the patient provide further recommendations accordingly. MANAGER PEDIATRIC note has been reviewed, I agree with a documented findings and plan of care. Patient was seen and examined.
[2017-05-28] MEDS: PANTOPRAZOLE 40 MG TABLET PO SCH ×2 (12:35→18:26)
[2017-05-28] MEDS: MULTIVITAMINS, THERA 1 EACH TAB PO SCH (12:35)
[2017-05-28] MEDS: THIAMINE 100 MG TAB PO SCH ×2 (12:36→18:26)
--- NOTE | 2017-05-28 13:17 | P.PN ---
Subjective Principal diagnosis: Shortness of breath secondary to COPD and anemia. 66-year-old male patient known to me from previous hospitalizations, specifically from May 2016 when the patient came in to the ICU with complicated acute diverticulitis with abscess formation for which she required a colectomy and diverting colostomy and John pouch. I took care of this patient back then and he is course was essentially complicated by sepsis, hypotension, acute kidney injury and altered mentation from which the patient recovered. I saw him in my office subsequently and he was diagnosed having advanced COPD with an FEV1 of 40% of predicted. He was strongly advised to quit smoking and quit drinking in addition. Note that the patient underwent a reversal of his colostomy on December 2016. This was successful without any complications. Currently the patient is coming into the hospital cause a worsening shortness of breath. The patient has no significant cough or sputum production. He has no chest pain. Denies having any fever chills or night sweats. He had limited amount of sputum production which essentially subsided. He reports exertional dyspnea and he gets short of breath with limited amount of activity. He is known to have COPD and coronary artery disease. Has undergone previous coronary intervention and stenting. Echocardiogram from 2015 showed a normal LV function without evidence of any valvular heart disease with a normal ejection fraction. He d-dimer was elevated. The patient was given a VQ scan that came back of a low probability. The patient has chronic renal failure the creatinine is typically elevated at 1.5-1.6. For that reason a CT angios the chest was not done. Chest x-ray shows hyperinflation without any acute abnormalities. The BNP level is at 1320. Initial troponin was negative second troponin was at 0.035. Rest of the electrodes are all within normal limits. He has chronic anemia and hemoglobin is been stable at 8.3. Coagulation profile is within normal limits. Patient was reevaluated today on 05/28/2017, seems to be doing better, breathing a bit easier, receiving a unit of packed RBCs during the time of my evaluation. Discussed with the patient the issue related to his COPD, and he seems to be on proper bronchodilators written for him by Dr. Benitez. His shortness of breath will likely improve after his blood transfusion. And considering the issue of his anemia seems to be chronic, and no specific etiology for his anemia has been pinpointed in the past, I went ahead and recommended hematology/ oncology evaluation to possibly consider issues related to his bone marrow. Objective - Vital Signs Vital signs: Vital Signs Temp 97.3 F L 05/28/17 12:00 Pulse 73 05/28/17 12:00 Resp 18 05/28/17 12:00 BP 95/65 05/28/17 12:00 Pulse Ox 100 05/28/17 12:00 Intake & Output 05/27/17 05/28/17 05/28/17 18:59 06:59 18:59 Intake Total 420 1325.79 526.55 Balance 420 1325.79 526.55 Weight 68.039 kg 73.5 kg Intake: Intake, IV Titration 200 1325.79 166.55 Amount Heparin Sodium,Porcine/ 225.79 166.55 D5w Pmx 25,000 unit In Dextrose/Water 1 500ml. bag @ 12 UNITS/KG/HR 16. 32 mls/hr IV .Q24H [facility] Rx #:[id number] Magnesium Sulfate-D5w Pmx 200 1 gm In Dextrose/Water 1 100ml.bag @ 100 mls/hr IVPB Q1H [facility] Rx#: [id number] Sodium Chloride 0.9% 1, 1100 000 ml @ 100 mls/hr IV . Q10H [facility] Rx#:[id number] Oral 220 360 Blood Product 0 Rc As-1 Unit 0 [id number] Other: Voiding Method Bedside Commode Bedside Commode Urinal Urinal - Exam Gen. appearance is calm and comfortable likely distress.Head exam was generally normal. There was no scleral icterus or corneal arcus. Mucous membranes were moist.Neck was supple and without jugular venous distension, thyromegaly, or carotid bruits. Carotids were easily palpable bilaterally. There was no adenopathy. Lung sounds are diminished bilaterally. No wheezes or rhonchi or any crackles. Cardiac exam revealed the PMI to be normally situated and sized. The rhythm was regular and no extrasystoles were noted during several minutes of auscultation. The first and second heart sounds were normal and physiologic splitting of the second heart sound was noted. There were no murmurs, rubs, clicks, or gallops. Abdominal exam revealed normal bowel sounds. The abdomen was soft, non-tender, and without masses, organomegaly, or appreciable enlargement of the abdominal aorta. Scars of previous abdominal surgeries presents over the anterior abdominal wall. Examination of the extremities revealed easily palpable radial, femoral and pedal pulses. There was no cyanosis, clubbing or edema. Neurologically the patient is awake and alert and there is no focal neurological deficit. Skeletal examination shows no deformities or joint disease or arthritis. Examination of the skin revealed no evidence of significant rashes, suspicious appearing nevi or other concerning lesions. - Labs CBC & Chem 7: 05/28/17 06:13 05/28/17 06:13 Labs: Abnormal Lab Results - Last 24 Hours (Table) 05/27/17 05/27/17 05/27/17 Range/Units 09:45 09:45 09:45 RBC (4.30-5.90) m/uL Hgb (13.0-17.5) gm/dL Hct (39.0-53.0) % RDW (11.5-15.5) % Lymphocytes # (1.0-4.8) k/uL APTT (22.0-30.0) sec Sodium (137-145) mmol/L Carbon Dioxide (22-30) mmol/L Creatinine (0.66-1.25) mg/dL Glucose (74-99) mg/dL POC Glucose (mg/dL) (75-99) mg/dL Calcium (8.4-10.2) mg/dL Magnesium (1.6-2.3) mg/dL TIBC 176 L (228-460) ug/dL Iron Saturation 94.32 H (15.00-50.00) Alkaline Phosphatase (38-126) U/L Total Creatine Kinase (55-170) U/L Total Protein (6.3-8.2) g/dL Albumin (3.5-5.0) g/dL Vitamin B12 >1000 H (239-931) pg/mL Crossmatch See Detail 05/27/17 05/27/17 05/27/17 Range/Units 15:26 16:37 16:58 RBC (4.30-5.90) m/uL Hgb (13.0-17.5) gm/dL Hct (39.0-53.0) % RDW (11.5-15.5) % Lymphocytes # (1.0-4.8) k/uL APTT (22.0-30.0) sec Sodium (137-145) mmol/L Carbon Dioxide (22-30) mmol/L Creatinine (0.66-1.25) mg/dL Glucose (74-99) mg/dL POC Glucose (mg/dL) 154 H (75-99) mg/dL Calcium (8.4-10.2) mg/dL Magnesium 1.5 L (1.6-2.3) mg/dL TIBC (228-460) ug/dL Iron Saturation (15.00-50.00) Alkaline Phosphatase (38-126) U/L Total Creatine Kinase 210 H (55-170) U/L Total Protein (6.3-8.2) g/dL Albumin (3.5-5.0) g/dL Vitamin B12 (239-931) pg/mL Crossmatch 05/27/17 05/27/17 05/27/17 Range/Units 21:02 21:05 21:05 RBC (4.30-5.90) m/uL Hgb (13.0-17.5) gm/dL Hct (39.0-53.0) % RDW (11.5-15.5) % Lymphocytes # (1.0-4.8) k/uL APTT 43.0 H (22.0-30.0) sec Sodium (137-145) mmol/L Carbon Dioxide (22-30) mmol/L Creatinine (0.66-1.25) mg/dL Glucose (74-99) mg/dL POC Glucose (mg/dL) 148 H (75-99) mg/dL Calcium (8.4-10.2) mg/dL Magnesium (1.6-2.3) mg/dL TIBC (228-460) ug/dL Iron Saturation (15.00-50.00) Alkaline Phosphatase (38-126) U/L Total Creatine Kinase 175 H (55-170) U/L Total Protein (6.3-8.2) g/dL Albumin (3.5-5.0) g/dL Vitamin B12 (239-931) pg/mL Crossmatch 05/28/17 05/28/17 05/28/17 Range/Units 06:13 06:13 06:13 RBC 2.19 L (4.30-5.90) m/uL Hgb 6.6 L* D (13.0-17.5) gm/dL Hct 21.0 L (39.0-53.0) % RDW 18.6 H (11.5-15.5) % Lymphocytes # 0.6 L (1.0-4.8) k/uL APTT 43.0 H (22.0-30.0) sec Sodium 135 L (137-145) mmol/L Carbon Dioxide 20 L (22-30) mmol/L Creatinine 1.29 H (0.66-1.25) mg/dL Glucose 144 H (74-99) mg/dL POC Glucose (mg/dL) (75-99) mg/dL Calcium 6.8 L (8.4-10.2) mg/dL Magnesium (1.6-2.3) mg/dL TIBC (228-460) ug/dL Iron Saturation (15.00-50.00) Alkaline Phosphatase 169 H (38-126) U/L Total Creatine Kinase (55-170) U/L Total Protein 5.2 L (6.3-8.2) g/dL Albumin 2.5 L (3.5-5.0) g/dL Vitamin B12 (239-931) pg/mL Crossmatch 05/28/17 Range/Units 06:16 RBC (4.30-5.90) m/uL Hgb (13.0-17.5) gm/dL Hct (39.0-53.0) % RDW (11.5-15.5) % Lymphocytes # (1.0-4.8) k/uL APTT (22.0-30.0) sec Sodium (137-145) mmol/L Carbon Dioxide (22-30) mmol/L Creatinine (0.66-1.25) mg/dL Glucose (74-99) mg/dL POC Glucose (mg/dL) 172 H (75-99) mg/dL Calcium (8.4-10.2) mg/dL Magnesium (1.6-2.3) mg/dL TIBC (228-460) ug/dL Iron Saturation (15.00-50.00) Alkaline Phosphatase (38-126) U/L Total Creatine Kinase (55-170) U/L Total Protein (6.3-8.2) g/dL Albumin (3.5-5.0) g/dL Vitamin B12 (239-931) pg/mL Crossmatch Assessment and Plan Plan: 1 shortness of breath on that investigation. No evidence of any venous thrombolic embolic disease. The VQ scan was negative the chest x-ray is consistent with COPD without any acute abnormalities. Patient has advanced COPD with an FEV1 of 40-44% of predicted. He has chronic exertional dyspnea. He suffers from chronic anemia. Baseline echocardiogram showed a preserved LV function from 2016 2 COPD severe. Stable 3 coronary artery disease with previous coronary intervention and stenting 4 history of myocardial infarction 5 chronic renal failure 6 history of complicated diverticulitis according colectomy, colostomy and subsequent reversal. 7 alcoholism 8 smoker 9 hypertension 10 hyperlipidemia 11 chronic anemia received packed RBC transfusion on an outpatient basis. 12 peripheral vascular disease Recommendation: Continue present treatment plan for underlying COPD, patient told me that his baseline FEV1 is normal in the range of 40%, and this was about a year ago. It is probably close to 35% at this point, and considering his anemia in addition to his COPD, that is the main reason for his shortness of breath on presentation. Continue present course of bronchodilators, address his anemia accordingly, and we will initiate consultation with hematology/ oncology. Time with Patient: Less than 30
[2017-05-28 14:42] VITALS: BMI 21.4
--- NOTE | 2017-05-28 16:13 | CONS ---
CONSULTATION REASON FOR CONSULT: Anemia. HISTORY: Mark is a 66-year-old man well known to me. He had a colostomy for perforated diverticulitis and then underwent a reversal earlier in the year. He had a colonoscopy prior to that, which was relatively unremarkable. He has been having several weeks of feeling very weak and lightheaded. He had an outpatient transfusion and came into the emergency department. He was found to be markedly anemic. His hemoglobin was 6.6 this morning. He has not been having any abdominal pain. No nausea, no vomiting. No blood in his stools or dark tarry stools. He has not had much of an appetite. He states he feels it is because he was too weak to go into the kitchen and get anything to eat. Since he has been here he says he has been eating well. He does have a history of very heavy alcohol intake. He did have a GI bleed after a removal of a lipoma in December that stopped on its own done at [facility]. At that time, his hemoglobin was 8 and he was Hemoccult positive. This time he has been Hemoccult negative. PAST MEDICAL HISTORY: His past medical history includes diverticulitis, COPD, coronary artery disease, hypertension, hyperlipidemia, alcoholism, peripheral vascular disease. PAST SURGICAL HISTORY: Includes a John's procedure with subsequent reversal of colostomy and had angioplasty with stenting. Aortogram. MEDICATIONS CURRENTLY: 1. Tylenol p.r.n. 2. Lipitor. 3. Symbicort. 4. Librium. 5. Folic acid. 6. Homolog. 7. Ativan p.r.n. 8. Melatonin. 9. Lopressor. 10.Multivitamin. 11.Habitrol. 12.Zofran p.r.n. 13.Protonix. 14.Prednisone. 15.Vitamin B. See med rec for med doses. ALLERGIES: DILAUDID. SOCIAL HISTORY: History of heavy tobacco and alcohol use. FAMILY HISTORY: Family history is noncontributory. REVIEW OF SYSTEMS: Per chief complaint. PHYSICAL EXAM: A 66-year-old man who is alert and oriented x3 in no acute distress. Pulse 73, respirations 18, blood pressure is 95/56, afebrile. Heart is regular rate and rhythm. LUNGS: Clear to auscultation. ABDOMEN: Soft, nontender. Positive bowel sounds. No masses or hepatosplenomegaly. LAB: Hemoglobin was 6.6 this morning. His INR is slightly elevated at 1.2. PTT was elevated at 43. Hemoccult was negative. ASSESSMENT: 1. Anemia, which is symptomatic. 2. History of coronary artery disease. 3. Protein calorie malnutrition. 4. History alcoholism. 5. Chronic renal disease. RECOMMENDATION: Currently the patient does not appear to have acute GI bleeding. Will repeat a Hemoccult. Agree with medical workup for his anemia. If he is Hemoccult positive, consider an EGD but I think this is more of a medical issue than acute GI blood loss. MMODL / IJN: [id number] /
[2017-05-28 16:24] LABS: Anisocytosis Slight; CH 30.5; CHCM 32.5; HCT 23.5 % (39.0-53.0); HDW 3.01; HGB 7.4 gm/dL (13.0-17.5); MCH 29.8 pg (25.0-35.0); MCHC 31.7 g/dL (31.0-37.0); MCV 94.1 fL (80.0-100.0); Mean Platelet Volume 8.8; RBC 2.49 m/uL (4.30-5.90); RDW 18.4 % (11.5-15.5); WBC 8.4 k/uL (3.8-10.6)
[2017-05-28 17:23] LABS: Glucose,Whole Blood 145 mg/dL (75-99)
--- NOTE | 2017-05-28 18:36 | ECHOF ---
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 This was a technically adequate study. The left ventricular size is normal. Left ventricular wall thickness is normal. Overall left ventricular systolic function is normal with, an EF between 55 - 60 %. The right ventricle is normal in size. LA is moderately dilated 34-39 ml/m2 The right atrial size is normal. The aortic valve is trileaflet, and appears structurally normal. No aortic stenosis or regurgitation. Mild mitral regurgitation is present. Mild tricuspid regurgitation present. The right ventricular systolic pressure, as measured by Doppler, is {RVSP}. Trace/mild (physiologic) pulmonic regurgitation. The aortic root size is normal. Echo free space represents a pericardial fat pad. CONCLUSIONS -------- 1. The left ventricular size is normal. 2. The aortic root size is normal. 3. Echo free space represents a pericardial fat pad. 4. Left ventricular wall thickness is normal. 5. Overall left ventricular systolic function is normal with, an EF between 55 - 60 %. 6. LA is moderately dilated 34-39 ml/m2 7. The aortic valve is trileaflet, and appears structurally normal. No aortic stenosis or regurgitation. 8. Mild mitral regurgitation is present. 9. Mild tricuspid regurgitation present. 10. The right ventricular systolic pressure, as measured by Doppler, is {RVSP}. 11. Trace/mild (physiologic) pulmonic regurgitation. ACTUARY MANAGER: Annalise Chan RDCS
[2017-05-28 20:30] LABS: Glucose,Whole Blood 90 mg/dL (75-99)
[2017-05-28] MEDS: FOLIC ACID 1 MG TAB PO SCH (22:46)
[2017-05-28] MEDS: ATORVASTATIN 10 MG TAB PO SCH (22:50)
[2017-05-29] MEDS: SODIUM CHLORIDE 0.9% 1,000 ML IV SCH ×2 (03:44→12:46)
--- NOTE | 2017-05-29 07:41 | P.PN ---
Subjective This is a 66-year-old pleasant gentleman patient of Dr. Allen, Dr. Vasquez, Dr. Benitez. He has underlying history of CAD hyperlipidemia hypertension with previous SD, heavy alcohol dependency, pleural effusion last 2014 admitted to the hospital secondary to fatigue, dyspnea and exertion, unable to walk secondary to probably legs, he also has been had having lightheadedness, weight loss, diminished appetite, he was last seen by Dr. Allen 1 month ago for which 2 units of packed red blood cell was given for his anemia, he had end-to-end anastomosis of a diverticular partial colectomy last December [address] Pope for which patient denies any complications related to it. Patient does not have any GI losses including melena hematochezia or hematemesis. Patient has had occasional cough which is his routine, he mentioned that he quit smoking yesterday at one half pack per day, also drinks 2-3 tall bottles of gin mixed with squirt on a daily basis, last intake was yesterday. He mentions that he was scheduled to be in [facility] ED for alcohol however he is not medically cleared secondary to his current symptoms. She also mentions that he has difficulty in coping up with his anxiety, thus his constant drinking pattern he currently lives with the who has difficulty in his behaviors for alcohol, and is also threatening that if he doesn't change his alcoholic wastes, she would divorce him Emergency room his hemoglobin was 8.3 from a previous of 8.2 last 12/18/2016 megalocytosis noted, INR of 1.2, d-dimer slightly elevated 1.13 sodium low at 135, potassium low at 3.2, magician extremely low at 0.5 glucose 97, chest x- ray failed to reveal any effusion, VQ scan was requested and showed low probability for pulmonary emboli, patient will be admitted secondary to dyspnea and exertion with progressive debility, consult was made with Dr Benitez, echocardiogram would be performed along with physical therapy and occupational therapy, thiamine and nutritional replacement, consult with psychiatry secondary to poor coping skills and alcohol substance disorder. He would be on DT precautions, Ativan when necessary, start on Librium 10 mg 4 times a day 05/28: Patient's hemoglobin has dropped to 6.6 and will be transfused 1 unit packed RBCs. Heparin has been discontinued. Consult with Dr. Li who is his general surgeon. Patient did have a transfusion as an outpatient on May [address] Mckeon patient has been seen by Dr. Vasquez an echocardiogram has been taken report is pending. Dr. Benitez is on consult as well. We will change Solu-Medrol over to oral prednisone at 40 mg daily. Patient states that his appetite is better he denies having any heartburn, abdominal pain. He denies any dark stools. He denies any blood in sputum or urine. He states he is not eating very much. He did have occult blood checked in the ER which was negative. Patient is otherwise hemodynamically stable and will be transferred to the [facility] floor today. No signs of active bleeding. Objective - Vital Signs Vital signs: Vital Signs Temp 97.9 F 05/28/17 00:00 Pulse 77 05/28/17 04:00 Resp 16 05/28/17 04:00 BP 78/46 05/28/17 04:00 Pulse Ox 99 05/28/17 04:00 Intake & Output 05/27/17 05/28/17 05/28/17 18:59 06:59 18:59 Intake Total 420 1325.79 166.55 Balance 420 1325.79 166.55 Weight 68.039 kg 73.5 kg Intake: Intake, IV Titration 200 1325.79 166.55 Amount Heparin Sodium,Porcine/ 225.79 166.55 D5w Pmx 25,000 unit In Dextrose/Water 1 500ml. bag @ 12 UNITS/KG/HR 16. 32 mls/hr IV .Q24H [facility] Rx #:[id number] Magnesium Sulfate-D5w Pmx 200 1 gm In Dextrose/Water 1 100ml.bag @ 100 mls/hr IVPB Q1H [facility] Rx#: [id number] Sodium Chloride 0.9% 1, 1100 000 ml @ 100 mls/hr IV . Q10H [facility] Rx#:[id number] Oral 220 Other: Voiding Method Bedside Commode Urinal - Exam General appearance: cooperative, no acute distress - EENT Eyes: anicteric sclerae, EOMI, PERRLA, dentition normal, normal appearance ENT: hard of hearing, NA/AT, normal oropharynx - Neck Neck: normal ROM - Respiratory Respiratory: bilateral: CTA, negative: diminished, dullness, rales - Cardiovascular Rhythm: regular Heart sounds: normal: S1, S2 Abnormal Heart Sounds: no systolic murmur, no diastolic murmur, no rub, no S3 Gallop, no S4 Gallop, no click, no other - Gastrointestinal General gastrointestinal: normal bowel sounds, soft - Integumentary Integumentary: normal, normal turgor - Neurologic Neurologic: CNII-XII intact, focal deficits - Musculoskeletal Musculoskeletal: gait normal - Psychiatric Psychiatric: A&O x's 3, appropriate affect, intact judgment & insight - Labs CBC & Chem 7: 05/28/17 16:00 05/28/17 06:13 Labs: Abnormal Lab Results - Last 24 Hours (Table) 05/27/17 05/27/17 05/27/17 Range/Units 09:45 09:45 09:45 WBC 10.7 H (3.8-10.6) k/uL RBC 2.81 L (4.30-5.90) m/uL Hgb 8.3 L (13.0-17.5) gm/dL Hct 25.4 L (39.0-53.0) % RDW 19.6 H (11.5-15.5) % Neutrophils # 8.5 H (1.3-7.7) k/uL Lymphocytes # (1.0-4.8) k/uL PT (9.0-12.0) sec INR (<1.2) APTT (22.0-30.0) sec D-Dimer (<0.60) mg/L FEU Sodium 135 L (137-145) mmol/L Potassium 3.2 L (3.5-5.1) mmol/L Carbon Dioxide (22-30) mmol/L Creatinine 1.54 H (0.66-1.25) mg/dL Glucose (74-99) mg/dL POC Glucose (mg/dL) (75-99) mg/dL Calcium 7.6 L (8.4-10.2) mg/dL Magnesium 0.5 L* (1.6-2.3) mg/dL ALT 20 L (21-72) U/L Alkaline Phosphatase 178 H (38-126) U/L Total Creatine Kinase 253 H (55-170) U/L Troponin I 0.035 H* (0.000-0.034) ng/mL Total Protein 6.1 L (6.3-8.2) g/dL Albumin 3.0 L (3.5-5.0) g/dL Vitamin B12 (239-931) pg/mL 05/27/17 05/27/17 05/27/17 Range/Units 09:45 09:45 15:26 WBC (3.8-10.6) k/uL RBC (4.30-5.90) m/uL Hgb (13.0-17.5) gm/dL Hct (39.0-53.0) % RDW (11.5-15.5) % Neutrophils # (1.3-7.7) k/uL Lymphocytes # (1.0-4.8) k/uL PT 12.2 H (9.0-12.0) sec INR 1.2 H (<1.2) APTT (22.0-30.0) sec D-Dimer 1.13 H (<0.60) mg/L FEU Sodium (137-145) mmol/L Potassium (3.5-5.1) mmol/L Carbon Dioxide (22-30) mmol/L Creatinine (0.66-1.25) mg/dL Glucose (74-99) mg/dL POC Glucose (mg/dL) (75-99) mg/dL Calcium (8.4-10.2) mg/dL Magnesium (1.6-2.3) mg/dL ALT (21-72) U/L Alkaline Phosphatase (38-126) U/L Total Creatine Kinase 210 H (55-170) U/L Troponin I (0.000-0.034) ng/mL Total Protein (6.3-8.2) g/dL Albumin (3.5-5.0) g/dL Vitamin B12 >1000 H (239-931) pg/mL 05/27/17 05/27/17 05/27/17 Range/Units 16:37 16:58 21:02 WBC (3.8-10.6) k/uL RBC (4.30-5.90) m/uL Hgb (13.0-17.5) gm/dL Hct (39.0-53.0) % RDW (11.5-15.5) % Neutrophils # (1.3-7.7) k/uL Lymphocytes # (1.0-4.8) k/uL PT (9.0-12.0) sec INR (<1.2) APTT (22.0-30.0) sec D-Dimer (<0.60) mg/L FEU Sodium (137-145) mmol/L Potassium (3.5-5.1) mmol/L Carbon Dioxide (22-30) mmol/L Creatinine (0.66-1.25) mg/dL Glucose (74-99) mg/dL POC Glucose (mg/dL) 154 H 148 H (75-99) mg/dL Calcium (8.4-10.2) mg/dL Magnesium 1.5 L (1.6-2.3) mg/dL ALT (21-72) U/L Alkaline Phosphatase (38-126) U/L Total Creatine Kinase (55-170) U/L Troponin I (0.000-0.034) ng/mL Total Protein (6.3-8.2) g/dL Albumin (3.5-5.0) g/dL Vitamin B12 (239-931) pg/mL 05/27/17 05/27/17 05/28/17 Range/Units 21:05 21:05 06:13 WBC (3.8-10.6) k/uL RBC 2.19 L (4.30-5.90) m/uL Hgb 6.6 L* D (13.0-17.5) gm/dL Hct 21.0 L (39.0-53.0) % RDW 18.6 H (11.5-15.5) % Neutrophils # (1.3-7.7) k/uL Lymphocytes # 0.6 L (1.0-4.8) k/uL PT (9.0-12.0) sec INR (<1.2) APTT 43.0 H (22.0-30.0) sec D-Dimer (<0.60) mg/L FEU Sodium (137-145) mmol/L Potassium (3.5-5.1) mmol/L Carbon Dioxide (22-30) mmol/L Creatinine (0.66-1.25) mg/dL Glucose (74-99) mg/dL POC Glucose (mg/dL) (75-99) mg/dL Calcium (8.4-10.2) mg/dL Magnesium (1.6-2.3) mg/dL ALT (21-72) U/L Alkaline Phosphatase (38-126) U/L Total Creatine Kinase 175 H (55-170) U/L Troponin I (0.000-0.034) ng/mL Total Protein (6.3-8.2) g/dL Albumin (3.5-5.0) g/dL Vitamin B12 (239-931) pg/mL 05/28/17 05/28/17 05/28/17 Range/Units 06:13 06:13 06:16 WBC (3.8-10.6) k/uL RBC (4.30-5.90) m/uL Hgb (13.0-17.5) gm/dL Hct (39.0-53.0) % RDW (11.5-15.5) % Neutrophils # (1.3-7.7) k/uL Lymphocytes # (1.0-4.8) k/uL PT (9.0-12.0) sec INR (<1.2) APTT 43.0 H (22.0-30.0) sec D-Dimer (<0.60) mg/L FEU Sodium 135 L (137-145) mmol/L Potassium (3.5-5.1) mmol/L Carbon Dioxide 20 L (22-30) mmol/L Creatinine 1.29 H (0.66-1.25) mg/dL Glucose 144 H (74-99) mg/dL POC Glucose (mg/dL) 172 H (75-99) mg/dL Calcium 6.8 L (8.4-10.2) mg/dL Magnesium (1.6-2.3) mg/dL ALT (21-72) U/L Alkaline Phosphatase 169 H (38-126) U/L Total Creatine Kinase (55-170) U/L Troponin I (0.000-0.034) ng/mL Total Protein 5.2 L (6.3-8.2) g/dL Albumin 2.5 L (3.5-5.0) g/dL Vitamin B12 (239-931) pg/mL Assessment and Plan Plan: 1. Dyspnea on exertion, multifactorial, secondary to anemia, severe nutritional deficiencies, chronic alcoholism, underlying CAD, and COPD. There was no pleural effusion noted on chest x-ray, negative for pulmonary emboli on a VQ scan, consult was made with Dr. Benitez, patient's troponin marginally elevated. Echocardiogram is requested, physical therapy and occasional therapy , Solu-Medrol and to oral prednisone, with nebulized albuterol and Atrovent 2. 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 No ongoing GI losses noted most likely nutritional deficiency from chronic alcoholism, iron panel requested, Start on Protonix. Transfuse 1 unit of packed RBCs. Consult with Dr. Redd. Heparin drip discontinued. Most likely anemia is due to bone marrow suppression from his chronic alcoholism. No current signs of blood loss. 3. Prior GI bleed December 2016 due to recent polypectomy and fatty tumor removal. Dr. Redd no complications identified at this time 4. Chronic protein calorie nutrition, moderate with alcohol dependency, nutritional supplementation 5. Heavy alcohol dependency, had tried multiple times to quit, has been very unsuccessful, patient was seen by mental health for coping skills, patient will be started on Librium 10 mg 4 times a day scheduled with when necessary Ativan for delirium tremens. Thiamine was started 6. Elevated troponin, History of coronary artery disease status post PCI in 2 stent placement in the past., echocardiogram and cardiac biomarkers started, start on atenolol 25 mg twice a day hold for blood pressure under 90, Plavix would be restarted, awaiting Hemoccult test patient on heparin, cardiology consulted 7. Marginally low blood pressure, IV fluids at 75 mL an with parameters for atenolol 8. CK D stage III baseline 1.51 avoid nephrotoxins and monitor for rhabdo, CPK elevated 9. Rhabdomyolysis, secondary to muscle deconditioning and myoclonus , monitor CPKs, IV hydration 10. Hypertension. Continue atenolol 11 COPD, stable, suspect mild exacerbation, patient's on Symbicort, Solu- Medrol 40 mg every 6 10. Tobacco use and dependence. Smoking cessation. Nicotine patch. 11. Magnesium deficiency, Rissman's in progress 11. Gastrointestinal prophylaxis. Protonix 12. DVT prophylaxis. MARYSE hose Discharge plan: subacute or inpatient rehab patient would need medical clearance for his planned alcohol with the rehabilitation at [facility] and plan of care have been directed as dictated by the signing physician. Hafsa Haq nurse practitioner acting as scribe for signing physician.
[2017-05-29] MEDS: SYMBICORT 160-4.5 MCG INHALER INHALATION SCH ×2 (07:46→19:22)
[2017-05-29 07:50] LABS: Glucose,Whole Blood 102 mg/dL (75-99)
[2017-05-29] MEDS: METOPROLOL TARTRATE 12.5 MG TAB PO SCH (07:57)
[2017-05-29] MEDS: PANTOPRAZOLE 40 MG TABLET PO SCH ×2 (07:58→19:51)
[2017-05-29] MEDS: NICOTINE 14MG/24HR PATCH TRANSDERM SCH (07:58)
[2017-05-29] MEDS: predniSONE 20 MG TAB PO SCH (07:59)
[2017-05-29] MEDS: MULTIVITAMINS, THERA 1 EACH TAB PO SCH (07:59)
[2017-05-29] MEDS: THIAMINE 100 MG TAB PO SCH ×2 (08:00→19:51)
[2017-05-29] MEDS: INSULIN LISPRO (humaLOG) 300 UNIT/3 ML VIAL SQ SCH ×4 (08:03→22:37)
[2017-05-29 09:01] LABS: Anisocytosis Slight; Basophils % (A) 0 %; CH 30.1; CHCM 31.8; Eosinophils % (A) 0 %; HCT 23.5 % (39.0-53.0); HDW 3.31; HGB 7.5 gm/dL (13.0-17.5); Hypochromasia Slight; Luc # (Auto) 0.11; Luc % (Auto) 1; Lymphocytes % (A) 26 %; MCH 30.1 pg (25.0-35.0); MCHC 31.8 g/dL (31.0-37.0); MCV 94.8 fL (80.0-100.0); Mean Platelet Volume 8.8; Monocytes # (A) 0.5 k/uL (0-1.0); Monocytes % (A) 4 %; Neutrophils % (A) 69 %; RBC 2.48 m/uL (4.30-5.90); RDW 18.6 % (11.5-15.5); WBC 11.6 k/uL (3.8-10.6); WBC (Perox) 11.89
[2017-05-29 09:07] LABS: ALT 30 U/L (21-72); AST 48 U/L (17-59); Alkaline Phosphatase 143 U/L (38-126); Anion Gap 8 mmol/L; Blood Urea Nitrogen 17 mg/dL (9-20); Calcium 6.9 mg/dL (8.4-10.2); Carbon Dioxide 20 mmol/L (22-30); Chloride 111 mmol/L (98-107); Creatine Kinase 95 U/L (55-170); Glucose 86 mg/dL (74-99); Magnesium 1.3 mg/dL (1.6-2.3); Non-African American GFR(MDRD) 60 (>60 ml/min/1.73 sqM); Potassium 3.1 mmol/L (3.5-5.1); Sodium 139 mmol/L (137-145); Total Bilirubin 0.3 mg/dL (0.2-1.3); Total Protein 5.1 g/dL (6.3-8.2)
[2017-05-29 11:54] LABS: Glucose,Whole Blood 118 mg/dL (75-99)
[2017-05-29] MEDS ORDERED: CALCIUM CARBONATE 500 MG CHEWABLE PO PRN (12:02)
[2017-05-29] MEDS: POTASSIUM CHLORIDE ER 20 MEQ TAB.ER PO SCH ×2 (12:03→14:28)
[2017-05-29] MEDS: MAGNESIUM SULFATE-D5W PMX 1 GM in DEXTROSE/WATER 1 100ML.BAG IVPB SCH ×2 (12:40→14:28)
--- NOTE | 2017-05-29 14:02 | P.PN ---
Subjective Principal diagnosis: Shortness of breath secondary to COPD and anemia 66-year-old male patient known to me from previous hospitalizations, specifically from May 2016 when the patient came in to the ICU with complicated acute diverticulitis with abscess formation for which she required a colectomy and diverting colostomy and John pouch. I took care of this patient back then and he is course was essentially complicated by sepsis, hypotension, acute kidney injury and altered mentation from which the patient recovered. I saw him in my office subsequently and he was diagnosed having advanced COPD with an FEV1 of 40% of predicted. He was strongly advised to quit smoking and quit drinking in addition. Note that the patient underwent a reversal of his colostomy on December 2016. This was successful without any complications. Currently the patient is coming into the hospital cause a worsening shortness of breath. The patient has no significant cough or sputum production. He has no chest pain. Denies having any fever chills or night sweats. He had limited amount of sputum production which essentially subsided. He reports exertional dyspnea and he gets short of breath with limited amount of activity. He is known to have COPD and coronary artery disease. Has undergone previous coronary intervention and stenting. Echocardiogram from 2015 showed a normal LV function without evidence of any valvular heart disease with a normal ejection fraction. He d-dimer was elevated. The patient was given a VQ scan that came back of a low probability. The patient has chronic renal failure the creatinine is typically elevated at 1.5-1.6. For that reason a CT angios the chest was not done. Chest x-ray shows hyperinflation without any acute abnormalities. The BNP level is at 1320. Initial troponin was negative second troponin was at 0.035. Rest of the electrodes are all within normal limits. He has chronic anemia and hemoglobin is been stable at 8.3. Coagulation profile is within normal limits. Patient was reevaluated today on 05/28/2017, seems to be doing better, breathing a bit easier, receiving a unit of packed RBCs during the time of my evaluation. Discussed with the patient the issue related to his COPD, and he seems to be on proper bronchodilators written for him by Dr. Benitez. His shortness of breath will likely improve after his blood transfusion. And considering the issue of his anemia seems to be chronic, and no specific etiology for his anemia has been pinpointed in the past, I went ahead and recommended hematology/ oncology evaluation to possibly consider issues related to his bone marrow. On 05/29/2017 patient is sitting up in bed, alert and oriented, no signs of distress noted. States he was up ambulating last night, and was able to tolerate it well. He received 1 unit of packed RBCs yesterday, hemoglobin is 7.5 today. Patient is chronically anemic, and we are currently awaiting hematology/oncology input. Patient was also evaluated by surgery for his anemia. Patient does not appear to have any acute GI bleeding. The plan is to obtain a hemoccult, and proceed with EGD if the Hemoccult is positive. Patient does haven't underlying history of COPD, with a baseline FEV1 around 40. From restaurants or standpoint, patient seems to be improving, less short of breath and able to tolerate more activity. Lung sounds-diffuse wheezing over posterior lung mg, but no rales, no rhonchi. Productive cough with moderate amount of clear sputum. Patient continues to smoke around half a pack a day. States he will continue with nicotine cessation efforts. Afebrile, on room air, maintaining sats around 95-99%. Objective - Vital Signs Vital signs: Vital Signs Temp 97.5 F L 05/29/17 08:00 Pulse 81 05/29/17 08:00 Resp 20 05/29/17 08:00 BP 97/63 05/29/17 08:00 Pulse Ox 84 L 05/29/17 08:00 Intake & Output 05/28/17 05/29/17 05/29/17 18:59 06:59 18:59 Intake Total 2156.55 1900 Output Total 200 Balance 1956.55 1900 Weight 73.5 kg 74 kg Intake: Intake, IV Titration 1366.55 1600 Amount Heparin Sodium,Porcine/ 166.55 D5w Pmx 25,000 unit In Dextrose/Water 1 500ml. bag @ 12 UNITS/KG/HR 16. 32 mls/hr IV .Q24H [facility] Rx #:[id number] Sodium Chloride 0.9% 1, 1200 1600 000 ml @ 100 mls/hr IV . Q10H [facility] Rx#:[id number] Oral 480 300 Blood Product 310 Rc As-1 Unit 310 [id number] Output: Urine 200 Other: Voiding Method Bedside Commode Bedside Commode Urinal Urinal # Voids 1 2 - Exam Gen. appearance is calm and comfortable likely distress.Head exam was generally normal. There was no scleral icterus or corneal arcus. Mucous membranes were moist.Neck was supple and without jugular venous distension, thyromegaly, or carotid bruits. Carotids were easily palpable bilaterally. There was no adenopathy. Lung sounds are diminished bilaterally. Diffuse end expiratory wheezes noted, but no rhonchi rhonchi or any crackles. Cardiac exam revealed the PMI to be normally situated and sized. The rhythm was regular and no extrasystoles were noted during several minutes of auscultation. The first and second heart sounds were normal and physiologic splitting of the second heart sound was noted. There were no murmurs, rubs, clicks, or gallops. Abdominal exam revealed normal bowel sounds. The abdomen was soft, non-tender, and without masses, organomegaly, or appreciable enlargement of the abdominal aorta. Scars of previous abdominal surgeries presents over the anterior abdominal wall. Examination of the extremities revealed easily palpable radial, femoral and pedal pulses. There was no cyanosis, clubbing or edema. Neurologically the patient is awake and alert and there is no focal neurological deficit. Skeletal examination shows no deformities or joint disease or arthritis. Examination of the skin revealed no evidence of significant rashes, suspicious appearing nevi or other concerning lesions. - Labs CBC & Chem 7: 05/29/17 08:21 05/29/17 08:21 Labs: Abnormal Lab Results - Last 24 Hours (Table) 05/27/17 05/27/17 05/28/17 Range/Units 09:45 09:45 16:00 WBC (3.8-10.6) k/uL RBC 2.49 L (4.30-5.90) m/uL Hgb 7.4 L (13.0-17.5) gm/dL Hct 23.5 L (39.0-53.0) % RDW 18.4 H (11.5-15.5) % Neutrophils # (1.3-7.7) k/uL Potassium (3.5-5.1) mmol/L Chloride (98-107) mmol/L Carbon Dioxide (22-30) mmol/L POC Glucose (mg/dL) (75-99) mg/dL Calcium (8.4-10.2) mg/dL Magnesium (1.6-2.3) mg/dL TIBC 176 L (228-460) ug/dL Iron Saturation 94.32 H (15.00-50.00) Alkaline Phosphatase (38-126) U/L Total Protein (6.3-8.2) g/dL Albumin (3.5-5.0) g/dL Crossmatch See Detail 05/28/17 05/29/17 05/29/17 Range/Units 17:20 07:23 08:21 WBC 11.6 H (3.8-10.6) k/uL RBC 2.48 L (4.30-5.90) m/uL Hgb 7.5 L (13.0-17.5) gm/dL Hct 23.5 L (39.0-53.0) % RDW 18.6 H (11.5-15.5) % Neutrophils # 8.0 H (1.3-7.7) k/uL Potassium (3.5-5.1) mmol/L Chloride (98-107) mmol/L Carbon Dioxide (22-30) mmol/L POC Glucose (mg/dL) 145 H 102 H (75-99) mg/dL Calcium (8.4-10.2) mg/dL Magnesium (1.6-2.3) mg/dL TIBC (228-460) ug/dL Iron Saturation (15.00-50.00) Alkaline Phosphatase (38-126) U/L Total Protein (6.3-8.2) g/dL Albumin (3.5-5.0) g/dL Crossmatch 05/29/17 05/29/17 Range/Units 08:21 11:52 WBC (3.8-10.6) k/uL RBC (4.30-5.90) m/uL Hgb (13.0-17.5) gm/dL Hct (39.0-53.0) % RDW (11.5-15.5) % Neutrophils # (1.3-7.7) k/uL Potassium 3.1 L (3.5-5.1) mmol/L Chloride 111 H (98-107) mmol/L Carbon Dioxide 20 L (22-30) mmol/L POC Glucose (mg/dL) 118 H (75-99) mg/dL Calcium 6.9 L (8.4-10.2) mg/dL Magnesium 1.3 L (1.6-2.3) mg/dL TIBC (228-460) ug/dL Iron Saturation (15.00-50.00) Alkaline Phosphatase 143 H (38-126) U/L Total Protein 5.1 L (6.3-8.2) g/dL Albumin 2.4 L (3.5-5.0) g/dL Crossmatch Assessment and Plan Plan: Assessment and Plan Plan: 1 shortness of breath on that investigation. No evidence of any venous thrombolic embolic disease. The VQ scan was negative the chest x-ray is consistent with COPD without any acute abnormalities. Patient has advanced COPD with an FEV1 of 40-44% of predicted. He has chronic exertional dyspnea. He suffers from chronic anemia. Patient was transfused last night with 1 unit of PRBC. No signs of GI tract blood loss. We'll obtain Hemoccult.Baseline echocardiogram showed a preserved LV function from 2016 2 COPD severe. Stable 3 coronary artery disease with previous coronary intervention and stenting 4 history of myocardial infarction 5 chronic renal failure 6 history of complicated diverticulitis according colectomy, colostomy and subsequent reversal. 7 alcoholism 8 smoker 9 hypertension 10 hyperlipidemia 11 chronic anemia received packed RBC transfusion on an outpatient basis. 12 peripheral vascular disease Recommendation: Continue present treatment plan for underlying COPD, patient told me that his baseline FEV1 is normal in the range of 40%, and this was about a year ago. It is probably close to 35% at this point, and considering his anemia in addition to his COPD, that is the main reason for his shortness of breath on presentation. Surgery is investigating the possibility of GI tract blood loss. Await input from hematology/oncology. Continue present course of bronchodilators, address his anemia accordingly, and we will initiate consultation with hematology/oncology. Increase activity as tolerated. I performed a history & physical examination of the patient and discussed their management with my nurse practitioner, Nurys Polanco. I reviewed the nurse practitioner's note and agree with the documented findings and plan of care.
--- NOTE | 2017-05-29 15:04 | P.PN ---
Subjective This is a 66-year-old pleasant gentleman patient of Dr. Allen, Dr. Vasquez, Dr. Benitez. He has underlying history of CAD hyperlipidemia hypertension with previous OH, heavy alcohol dependency, pleural effusion last 2014 admitted to the hospital secondary to fatigue, dyspnea and exertion, unable to walk secondary to probably legs, he also has been had having lightheadedness, weight loss, diminished appetite, he was last seen by Dr. Allen 1 month ago for which 2 units of packed red blood cell was given for his anemia, he had end-to-end anastomosis of a diverticular partial colectomy last December [address] Pope for which patient denies any complications related to it. Patient does not have any GI losses including melena hematochezia or hematemesis. Patient has had occasional cough which is his routine, he mentioned that he quit smoking yesterday at one half pack per day, also drinks 2-3 tall bottles of gin mixed with squirt on a daily basis, last intake was yesterday. He mentions that he was scheduled to be in [facility] for alcohol however he is not medically cleared secondary to his current symptoms. She also mentions that he has difficulty in coping up with his anxiety, thus his constant drinking pattern he currently lives with the who has difficulty in his behaviors for alcohol, and is also threatening that if he doesn't change his alcoholic wastes, she would divorce him Emergency room his hemoglobin was 8.3 from a previous of 8.2 last 12/18/2016 megalocytosis noted, INR of 1.2, d-dimer slightly elevated 1.13 sodium low at 135, potassium low at 3.2, magician extremely low at 0.5 glucose 97, chest x- ray failed to reveal any effusion, VQ scan was requested and showed low probability for pulmonary emboli, patient will be admitted secondary to dyspnea and exertion with progressive debility, consult was made with Dr Benitez, echocardiogram would be performed along with physical therapy and occupational therapy, thiamine and nutritional replacement, consult with psychiatry secondary to poor coping skills and alcohol substance disorder. He would be on DT precautions, Ativan when necessary, start on Librium 10 mg 4 times a day 05/28: Patient's hemoglobin has dropped to 6.6 and will be transfused 1 unit packed RBCs. Heparin has been discontinued. Consult with Dr. Li who is his general surgeon. Patient did have a transfusion as an outpatient on May 17 [address] Mckeon patient has been seen by Dr. Vasquez an echocardiogram has been taken report is pending. Dr. Benitez is on consult as well. We will change Solu-Medrol over to oral prednisone at 40 mg daily. Patient states that his appetite is better he denies having any heartburn, abdominal pain. He denies any dark stools. He denies any blood in sputum or urine. He states he is not eating very much. He did have occult blood checked in the ER which was negative. Patient is otherwise hemodynamically stable and will be transferred to the [facility] floor today. No signs of active bleeding. 05/29: Occupational therapy is recommended subacute rehab the patient is adamant that he'll only go home. Social work also met with the patient. They have provided him with alcohol rehab facilities. Pulmonary medicine is added in a consult for Dr. concepcion. Hemoglobin today is at 7.5. No signs of bleeding. Repeat occult blood to be collected. Potassium, calcium and magnesium will be replaced. Echocardiogram reveals EF of 55-60%, LV moderately dilated 34-39, mild mitral regurgitation, mild tricuspid regurgitation. Anticipate discharge home tomorrow. Metoprolol has not been given the last 2 doses. This will be discontinued due to hypotension. Patient does state that Dr. Allen discontinued this about 2 weeks ago. Objective - Vital Signs Vital signs: Vital Signs Temp 98.1 F 05/28/17 21:11 Pulse 75 05/28/17 21:11 Resp 18 05/28/17 21:11 BP 91/53 05/28/17 21:11 Pulse Ox 84 L 05/29/17 07:52 Intake & Output 05/28/17 05/29/17 05/29/17 18:59 06:59 18:59 Intake Total 2156.55 1900 Output Total 200 Balance 1956.55 1900 Weight 73.5 kg 74 kg Intake: Intake, IV Titration 1366.55 1600 Amount Heparin Sodium,Porcine/ 166.55 D5w Pmx 25,000 unit In Dextrose/Water 1 500ml. bag @ 12 UNITS/KG/HR 16. 32 mls/hr IV .Q24H [facility] Rx #:[id number] Sodium Chloride 0.9% 1, 1200 1600 000 ml @ 100 mls/hr IV . Q10H [facility] Rx#:[id number] Oral 480 300 Blood Product 310 Rc As-1 Unit 310 [id number] Output: Urine 200 Other: Voiding Method Bedside Commode Bedside Commode Urinal Urinal # Voids 1 2 - Exam General appearance: cooperative, no acute distress - EENT Eyes: anicteric sclerae, EOMI, PERRLA, dentition normal, normal appearance ENT: hard of hearing, NA/AT, normal oropharynx - Neck Neck: normal ROM - Respiratory Respiratory: bilateral: CTA, negative: diminished, dullness, rales - Cardiovascular Rhythm: regular Heart sounds: normal: S1, S2 Abnormal Heart Sounds: no systolic murmur, no diastolic murmur, no rub, no S3 Gallop, no S4 Gallop, no click, no other - Gastrointestinal General gastrointestinal: normal bowel sounds, soft - Integumentary Integumentary: normal, normal turgor - Neurologic Neurologic: CNII-XII intact, focal deficits - Musculoskeletal Musculoskeletal: gait normal - Psychiatric Psychiatric: A&O x's 3, appropriate affect, intact judgment & insight - Labs CBC & Chem 7: 05/29/17 08:21 05/29/17 08:21 Labs: Abnormal Lab Results - Last 24 Hours (Table) 05/27/17 05/27/17 05/28/17 Range/Units 09:45 09:45 16:00 RBC 2.49 L (4.30-5.90) m/uL Hgb 7.4 L (13.0-17.5) gm/dL Hct 23.5 L (39.0-53.0) % RDW 18.4 H (11.5-15.5) % POC Glucose (mg/dL) (75-99) mg/dL TIBC 176 L (228-460) ug/dL Iron Saturation 94.32 H (15.00-50.00) Crossmatch See Detail 05/28/17 05/29/17 Range/Units 17:20 07:23 RBC (4.30-5.90) m/uL Hgb (13.0-17.5) gm/dL Hct (39.0-53.0) % RDW (11.5-15.5) % POC Glucose (mg/dL) 145 H 102 H (75-99) mg/dL TIBC (228-460) ug/dL Iron Saturation (15.00-50.00) Crossmatch Assessment and Plan Plan: 1. Dyspnea on exertion, multifactorial, secondary to anemia, severe nutritional deficiencies, chronic alcoholism, underlying CAD, and COPD. There was no pleural effusion noted on chest x-ray, negative for pulmonary emboli on a VQ scan, consult was made with Dr. Benitez, patient's troponin marginally elevated. Echocardiogram is requested, physical therapy and occasional therapy , Solu-Medrol and to oral prednisone, with nebulized albuterol and Atrovent 2. 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 No ongoing GI losses noted most likely nutritional deficiency from chronic alcoholism, iron panel requested, Start on Protonix. Transfuse 1 unit of packed RBCs. Consult with Dr. Redd. Heparin drip discontinued. Most likely anemia is due to bone marrow suppression from his chronic alcoholism. No current signs of blood loss. 3. Prior GI bleed December 2016 due to recent polypectomy and fatty tumor removal. Dr. Redd no complications identified at this time 4. Chronic protein calorie nutrition, moderate with alcohol dependency, nutritional supplementation 5. Heavy alcohol dependency, had tried multiple times to quit, has been very unsuccessful, patient was seen by mental health for coping skills, patient will be started on Librium 10 mg 4 times a day scheduled with when necessary Ativan for delirium tremens. Thiamine was started 6. Elevated troponin, History of coronary artery disease status post PCI in 2 stent placement in the past., echocardiogram and cardiac biomarkers started, start on atenolol 25 mg twice a day hold for blood pressure under 90, Plavix would be restarted, awaiting Hemoccult test patient on heparin, cardiology consulted 7. Marginally low blood pressure, IV fluids at 75 mL an with parameters for atenolol 8. CK D stage III baseline 1.51 avoid nephrotoxins and monitor for rhabdo, CPK elevated 9. Rhabdomyolysis, secondary to muscle deconditioning and myoclonus , monitor CPKs, IV hydration 10. Hypertension. Continue atenolol 11 COPD, stable, suspect mild exacerbation, patient's on Symbicort, prednisone 10. Tobacco use and dependence. Smoking cessation. Nicotine patch. 11. Magnesium deficiency, replacement in progress 11. Gastrointestinal prophylaxis. Protonix 12. DVT prophylaxis. MARYSE phan 13. Electrolyte abnormalities with hypokalemia, hypomagnesemia, status post replacement Discharge plan: Home with home care Impression and plan of care have been directed as dictated by the signing physician. Hafsa Haq nurse practitioner acting as scribe for signing physician.
[2017-05-29 17:56] LABS: Glucose,Whole Blood 140 mg/dL (75-99)
[2017-05-29 20:23] LABS: Glucose,Whole Blood 114 mg/dL (75-99)
[2017-05-29] MEDS: FOLIC ACID 1 MG TAB PO SCH (20:23)
[2017-05-29] MEDS: ATORVASTATIN 10 MG TAB PO SCH (20:23)
[2017-05-29] MEDS: MELATONIN 5 MG TABLET PO SCH (22:38)
--- NOTE | 2017-05-29 23:07 | P.CONS ---
History of Present Illness - Reason for Consult Consult date: 05/29/17 Chronic anemia - History of Present Illness The patient is a 66-year-old gentleman with multiple medical issues. The patient had presented in 05/19 with complete indicated diverticulitis an abscess. In the event surgery with placement of an ostomy. Prior to that event, and hemoglobin had been in the 11-12 range. Since then, the patient has had multiple hospital admissions, including reversal of the ostomy in 12/17. Also, since surgery, he has had chronic anemia with hemoglobin ranging from the 7 to the 9 range. Occasionally it has been higher than 10. The patient was admitted this time with increasing shortness of breath. This was felt to be due to COPD exacerbation. Patient is improving. During this admission, hemoglobin fell into the 6 range after which the patient was failure to blood transfusion. Consult was therefore placed for further evaluation and recommendations The patient denies any obvious bleeding. He has a history of alcohol abuse which is long-standing. He states that he quit drinking just recently. He also has a history of chronic kidney disease with baseline creatinine usually in the 1.5-1.6 range. Over the past few months, his appetite has been quite poor, with resultant low oral intake. However this is improving. Review of Systems Constitutional: Reports fatigue, Reports poor appetite (improving), Reports weakness Eyes: denies blurred vision, denies pain Ears: deny: decreased hearing, ear discharge, earache, tinnitus Ears, nose, mouth and throat: Denies headache, Denies sore throat Cardiovascular: Reports shortness of breath Respiratory: Reports dyspnea Gastrointestinal: Reports as per HPI Genitourinary: Reports as per HPI (no specific complaints) Musculoskeletal: Reports muscle weakness Integumentary: Denies pruritus, Denies rash Neurological: Reports weakness, Denies numbness Psychiatric: Reports as per HPI (ETOH abuse) Endocrine: Reports fatigue, Reports weight change Hematologic/Lymphatic: Reports as per HPI Past Medical History Past Medical History: Coronary Artery Disease (CAD), Hyperlipidemia, Hypertension, Myocardial Infarction ([place]), Skin Disorder Additional Past Medical History / Comment(s): Coronary artery disease with previous coronary intervention and stenting, advanced COPD, hypertension, hyperlipidemia, complicated diverticulitis requiring colectomy and diverticular colostomy with subsequent reversal, smoker, alcoholism, peripheral vascular disease Last Myocardial Infarction Date:: 2000 History of Any Multi-Drug Resistant Organisms: None Reported Past Surgical History: Bowel Resection, Heart Catheterization With Stent Additional Past Surgical History / Comment(s): aortogram, bowel resection with colostomy, stent right leg. Colonoscopy 2 days ago Past Anesthesia/Blood Transfusion Reactions: No Reported Reaction Date of Last Stent Placement:: 2000 Past Psychological History: Anxiety Smoking Status: Current every day smoker (One half pack per day) Past Alcohol Use History: Heavy (3 tall of approximately 24 ounces per bottles of gin with squirt per day equivalent to close 60 ounces) - Past Family History Father Family Medical History: Cancer Additional Family Medical History / Comment(s): lung Mother Family Medical History: Cancer Additional Family Medical History / Comment(s): lung Medications and Allergies Home Medications Medication Instructions Recorded Confirmed Type Atorvastatin Calcium [Lipitor] 10 mg PO HS 04/21/16 05/27/17 History Folic Acid 1 mg PO HS 04/21/16 05/27/17 History Clopidogrel [Plavix] 75 mg PO HS 12/17/16 05/27/17 History Allergies Allergy/AdvReac Type Severity Reaction Status Date / Time hydromorphone HCl AdvReac Hallucinati Verified 05/27/17 10:06 [From Dilaudid] ons Physical Exam Vitals: Vital Signs Temp Pulse Resp BP BP Pulse Ox 05/29/17 16:00 80 18 05/29/17 15:00 97.9 F 80 18 92/58 97 05/29/17 08:00 97.5 F L 81 20 97/63 84 L 05/29/17 07:52 84 L Intake and Output 05/29/17 05/29/17 05/29/17 06:59 14:59 22:59 Intake Total 800 1380 Balance 800 1380 Intake: Intake, IV Titration 800 900 Amount Magnesium Sulfate-D5w Pmx 200 1 gm In Dextrose/Water 1 100ml.bag @ 100 mls/hr IVPB Q1H [facility] Rx#: [id number] Sodium Chloride 0.9% 1, 800 700 000 ml @ 100 mls/hr IV . Q10H [facility] Rx#:[id number] Oral 480 Other: Voiding Method Bedside Commode Toilet Urinal # Voids 3 3 # Bowel Movements 0 0 Weight 74 kg 74 kg Patient Weight 05/30/17 06:59 Weight 74 kg - Constitutional General appearance: no acute distress - EENT Eyes: EOMI, PERRLA ENT: hearing grossly normal, normal oropharynx - Neck Neck: no lymphadenopathy Carotids: right: upstroke normal Thyroid: bilateral: normal size - Respiratory Respiratory: bilateral: CTA - Cardiovascular Rhythm: regular Heart sounds: normal: S1, S2 - Gastrointestinal General gastrointestinal: normal bowel sounds, soft - Integumentary Integumentary: normal - Neurologic Neurologic: CNII-XII intact - Musculoskeletal Musculoskeletal: generalized weakness, strength equal bilaterally - Psychiatric Psychiatric: A&O x's 3, appropriate affect Results CBC & Chem 7: 05/29/17 08:21 05/29/17 08:21 Labs: Abnormal Lab Results - Last 24 Hours (Table) 05/27/17 05/29/17 05/29/17 Range/Units 15:26 07:23 08:21 WBC 11.6 H (3.8-10.6) k/uL RBC 2.48 L (4.30-5.90) m/uL Hgb 7.5 L (13.0-17.5) gm/dL Hct 23.5 L (39.0-53.0) % RDW 18.6 H (11.5-15.5) % Neutrophils # 8.0 H (1.3-7.7) k/uL Potassium (3.5-5.1) mmol/L Chloride (98-107) mmol/L Carbon Dioxide (22-30) mmol/L POC Glucose (mg/dL) 102 H (75-99) mg/dL Calcium (8.4-10.2) mg/dL Magnesium (1.6-2.3) mg/dL Alkaline Phosphatase (38-126) U/L Total Protein (6.3-8.2) g/dL Albumin (3.5-5.0) g/dL RBC Folate 1,726 H (280 - 791) ng/mL 05/29/17 05/29/17 05/29/17 Range/Units 08:21 11:52 17:53 WBC (3.8-10.6) k/uL RBC (4.30-5.90) m/uL Hgb (13.0-17.5) gm/dL Hct (39.0-53.0) % RDW (11.5-15.5) % Neutrophils # (1.3-7.7) k/uL Potassium 3.1 L (3.5-5.1) mmol/L Chloride 111 H (98-107) mmol/L Carbon Dioxide 20 L (22-30) mmol/L POC Glucose (mg/dL) 118 H 140 H (75-99) mg/dL Calcium 6.9 L (8.4-10.2) mg/dL Magnesium 1.3 L (1.6-2.3) mg/dL Alkaline Phosphatase 143 H (38-126) U/L Total Protein 5.1 L (6.3-8.2) g/dL Albumin 2.4 L (3.5-5.0) g/dL RBC Folate (280 - 791) ng/mL 05/29/17 Range/Units 20:15 WBC (3.8-10.6) k/uL RBC (4.30-5.90) m/uL Hgb (13.0-17.5) gm/dL Hct (39.0-53.0) % RDW (11.5-15.5) % Neutrophils # (1.3-7.7) k/uL Potassium (3.5-5.1) mmol/L Chloride (98-107) mmol/L Carbon Dioxide (22-30) mmol/L POC Glucose (mg/dL) 114 H (75-99) mg/dL Calcium (8.4-10.2) mg/dL Magnesium (1.6-2.3) mg/dL Alkaline Phosphatase (38-126) U/L Total Protein (6.3-8.2) g/dL Albumin (3.5-5.0) g/dL RBC Folate (280 - 791) ng/mL Comments: Report of VQ scan, and echocardiogram/doppler reviewed Chest x-ray: report reviewed Assessment and Plan (1) Anemia Narrative/Plan: The patient has a history of chronic anemia, as described in the HPI. This has been present for at least a year. Prior to his presentation of diverticulitis or abscess, hemoglobin was higher, in the 11-12 range. Since then it has been much lower, usually in the 7-9 range . During this admission, it had fallen into the 6 range and has improved appropriately with transfusion - Based on the clinical history, the most likely cause is chronic marrow hypoproliferation, due to alcohol effect, as well as renal insufficiency. In this situation, additional falls can occur with any added stress such as a new illness - I therefore agree with the plan for supportive transfusion, to keep hemoglobin above 7. I will check labs to rule out other causes. Assuming these to be negative, I would anticipate some improvement in his hemoglobin once acute condition resolves, renal function remains at least stable, and the patient does not resume heavy alcohol use - Recommend follow-up in the outpatient setting, in about 3-4 weeks post discharge. As noted, if the above conditions are met hemoglobin should improve. If no improvement is noted in these circumstances, then a bone marrow evaluation will be planned Status: Acute Plan: Defer to the admitting service and other consultants for management of his multiple other medical problems
[2017-05-30 02:38] LABS: Glucose,Whole Blood 113 mg/dL (75-99)
[2017-05-30] MEDS: SODIUM CHLORIDE 0.9% 1,000 ML IV SCH ×3 (05:36→18:15)
[2017-05-30] MEDS: SYMBICORT 160-4.5 MCG INHALER INHALATION SCH (07:39)
[2017-05-30 07:41] LABS: Glucose,Whole Blood 93 mg/dL (75-99)
[2017-05-30 08:14] LABS: Anisocytosis Slight; Basophils % (A) 0 %; CH 29.2; CHCM 30.3; Eosinophils # (A) 0.1 k/uL (0-0.7); Eosinophils % (A) 1 %; HCT 22.3 % (39.0-53.0); HDW 3.35; Hypochromasia Marked; Luc # (Auto) 0.12; Luc % (Auto) 1; Lymphocytes # (A) 3.1 k/uL (1.0-4.8); Lymphocytes % (A) 25 %; MCH 30.1 pg (25.0-35.0); MCHC 31.1 g/dL (31.0-37.0); MCV 96.7 fL (80.0-100.0); Macrocytosis Slight; Mean Platelet Volume 8.5; Monocytes # (A) 0.4 k/uL (0-1.0); Monocytes % (A) 3 %; Neutrophils # (A) 8.9 k/uL (1.3-7.7); Neutrophils % (A) 71 %; RBC 2.31 m/uL (4.30-5.90); WBC 12.6 k/uL (3.8-10.6); WBC (Perox) 13.23
[2017-05-30 08:19] LABS: Reticulocyte % 0.3 % (0.5-2.0)
[2017-05-30] MEDS: INSULIN LISPRO (humaLOG) 300 UNIT/3 ML VIAL SQ SCH ×3 (08:20→18:16)
[2017-05-30 08:21] LABS: Anion Gap 5 mmol/L; Blood Urea Nitrogen 17 mg/dL (9-20); Calcium 7.4 mg/dL (8.4-10.2); Carbon Dioxide 22 mmol/L (22-30); Chloride 115 mmol/L (98-107); Glucose 79 mg/dL (74-99); Non-African American GFR(MDRD) >60 (>60 ml/min/1.73 sqM); Potassium 3.5 mmol/L (3.5-5.1); Sodium 142 mmol/L (137-145)
[2017-05-30 08:27] LABS: HGB 6.9 gm/dL (13.0-17.5)
[2017-05-30] MEDS: THIAMINE 100 MG TAB PO SCH ×2 (08:32→18:15)
[2017-05-30] MEDS: MULTIVITAMINS, THERA 1 EACH TAB PO SCH (08:33)
[2017-05-30] MEDS: predniSONE 20 MG TAB PO SCH (08:33)
[2017-05-30] MEDS: PANTOPRAZOLE 40 MG TABLET PO SCH ×2 (08:33→18:15)
[2017-05-30] MEDS: NICOTINE 14MG/24HR PATCH TRANSDERM SCH (08:33)
[2017-05-30] MEDS ORDERED: MAGNESIUM OXIDE 400 MG TAB PO SCH (09:00)
[2017-05-30 11:07] LABS: Glucose,Whole Blood 107 mg/dL (75-99)
[2017-05-30 14:42] VITALS: BP 119/77; RESP 16; TEMP 98.4
--- NOTE | 2017-05-30 15:32 | P.PN ---
Subjective Principal diagnosis: Shortness of breath secondary to COPD and anemia 66-year-old male patient known to me from previous hospitalizations, specifically from May 2016 when the patient came in to the ICU with complicated acute diverticulitis with abscess formation for which she required a colectomy and diverting colostomy and John pouch. I took care of this patient back then and he is course was essentially complicated by sepsis, hypotension, acute kidney injury and altered mentation from which the patient recovered. I saw him in my office subsequently and he was diagnosed having advanced COPD with an FEV1 of 40% of predicted. He was strongly advised to quit smoking and quit drinking in addition. Note that the patient underwent a reversal of his colostomy on December 2016. This was successful without any complications. Currently the patient is coming into the hospital cause a worsening shortness of breath. The patient has no significant cough or sputum production. He has no chest pain. Denies having any fever chills or night sweats. He had limited amount of sputum production which essentially subsided. He reports exertional dyspnea and he gets short of breath with limited amount of activity. He is known to have COPD and coronary artery disease. Has undergone previous coronary intervention and stenting. Echocardiogram from 2015 showed a normal LV function without evidence of any valvular heart disease with a normal ejection fraction. He d-dimer was elevated. The patient was given a VQ scan that came back of a low probability. The patient has chronic renal failure the creatinine is typically elevated at 1.5-1.6. For that reason a CT angios the chest was not done. Chest x-ray shows hyperinflation without any acute abnormalities. The BNP level is at 1320. Initial troponin was negative second troponin was at 0.035. Rest of the electrodes are all within normal limits. He has chronic anemia and hemoglobin is been stable at 8.3. Coagulation profile is within normal limits. Patient was reevaluated today on 05/28/2017, seems to be doing better, breathing a bit easier, receiving a unit of packed RBCs during the time of my evaluation. Discussed with the patient the issue related to his COPD, and he seems to be on proper bronchodilators written for him by Dr. Benitez. His shortness of breath will likely improve after his blood transfusion. And considering the issue of his anemia seems to be chronic, and no specific etiology for his anemia has been pinpointed in the past, I went ahead and recommended hematology/ oncology evaluation to possibly consider issues related to his bone marrow. On 05/29/2017 patient is sitting up in bed, alert and oriented, no signs of distress noted. States he was up ambulating last night, and was able to tolerate it well. He received 1 unit of packed RBCs yesterday, hemoglobin is 7.5 today. Patient is chronically anemic, and we are currently awaiting hematology/oncology input. Patient was also evaluated by surgery for his anemia. Patient does not appear to have any acute GI bleeding. The plan is to obtain a hemoccult, and proceed with EGD if the Hemoccult is positive. Patient does haven't underlying history of COPD, with a baseline FEV1 around 40. From restaurants or standpoint, patient seems to be improving, less short of breath and able to tolerate more activity. Lung sounds-diffuse wheezing over posterior lung mg, but no rales, no rhonchi. Productive cough with moderate amount of clear sputum. Patient continues to smoke around half a pack a day. States he will continue with nicotine cessation efforts. Afebrile, on room air, maintaining sats around 95-99%. On 05/30/2017 patient denies any specific respiratory complaints. Continues to improve, able to ambulate without significant distress. Hemoglobin today is down to 6.9, patient will be transfused with 1 unit of red blood cells. Hemoccult is negative. Hematology/oncology evaluation was done. The cause of patient's chronic anemia is thought to be related to chronic marrow hypo- proliferation due to chronic alcohol effect, renal insufficiency and an acute illness. Patient may follow up with hematology on an outpatient basis in 3-4 weeks after discharge. If the anemia does not improve, bone marrow evaluation will be considered. On examination today patient is alert awake, in no significant distress. Lung sounds - ministerial entry with a few end expiratory wheezes. No significant sputum production, no fevers, no other significant events overnight. Objective - Vital Signs Vital signs: Vital Signs Temp 98.4 F 05/30/17 14:41 Pulse 77 05/30/17 14:41 Resp 16 05/30/17 14:41 BP 119/77 05/30/17 14:41 Pulse Ox 96 05/30/17 14:41 Intake & Output 05/29/17 05/30/17 05/30/17 18:59 06:59 18:59 Intake Total 1380 1390 1570 Balance 1380 1390 1570 Weight 74 kg 76 kg Intake: Intake, IV Titration 900 800 700 Amount Magnesium Sulfate-D5w Pmx 200 1 gm In Dextrose/Water 1 100ml.bag @ 100 mls/hr IVPB Q1H [facility] Rx#: [id number] Sodium Chloride 0.9% 1, 700 800 700 000 ml @ 100 mls/hr IV . Q10H [facility] Rx#:[id number] Oral 480 590 250 Blood Product 620 Rc As-1 Unit 310 [id number] Other: Voiding Method Toilet Toilet # Voids 3 2 4 # Bowel Movements 0 3 - Exam Gen. appearance is calm and comfortable likely distress.Head exam was generally normal. There was no scleral icterus or corneal arcus. Mucous membranes were moist.Neck was supple and without jugular venous distension, thyromegaly, or carotid bruits. Carotids were easily palpable bilaterally. There was no adenopathy. Lung sounds are diminished bilaterally. Diffuse end expiratory wheezes noted, but no rhonchi rhonchi or any crackles. Cardiac exam revealed the PMI to be normally situated and sized. The rhythm was regular and no extrasystoles were noted during several minutes of auscultation. The first and second heart sounds were normal and physiologic splitting of the second heart sound was noted. There were no murmurs, rubs, clicks, or gallops. Abdominal exam revealed normal bowel sounds. The abdomen was soft, non-tender, and without masses, organomegaly, or appreciable enlargement of the abdominal aorta. Scars of previous abdominal surgeries presents over the anterior abdominal wall. Examination of the extremities revealed easily palpable radial, femoral and pedal pulses. There was no cyanosis, clubbing or edema. Neurologically the patient is awake and alert and there is no focal neurological deficit. Skeletal examination shows no deformities or joint disease or arthritis. Examination of the skin revealed no evidence of significant rashes, suspicious appearing nevi or other concerning lesions. - Labs CBC & Chem 7: 05/30/17 07:29 05/30/17 07:29 Labs: Abnormal Lab Results - Last 24 Hours (Table) 05/27/17 05/29/17 05/29/17 Range/Units 09:45 17:53 20:15 WBC (3.8-10.6) k/uL RBC (4.30-5.90) m/uL Hgb (13.0-17.5) gm/dL Hct (39.0-53.0) % RDW (11.5-15.5) % Neutrophils # (1.3-7.7) k/uL Retic Count (0.5-2.0) % Chloride (98-107) mmol/L POC Glucose (mg/dL) 140 H 114 H (75-99) mg/dL Calcium (8.4-10.2) mg/dL Magnesium (1.6-2.3) mg/dL Crossmatch See Detail 05/30/17 05/30/17 05/30/17 Range/Units 02:30 07:29 07:29 WBC 12.6 H (3.8-10.6) k/uL RBC 2.31 L (4.30-5.90) m/uL Hgb 6.9 L* (13.0-17.5) gm/dL Hct 22.3 L (39.0-53.0) % RDW 18.0 H (11.5-15.5) % Neutrophils # 8.9 H (1.3-7.7) k/uL Retic Count (0.5-2.0) % Chloride 115 H (98-107) mmol/L POC Glucose (mg/dL) 113 H (75-99) mg/dL Calcium 7.4 L (8.4-10.2) mg/dL Magnesium (1.6-2.3) mg/dL Crossmatch 05/30/17 05/30/17 05/30/17 Range/Units 07:29 07:29 11:04 WBC (3.8-10.6) k/uL RBC (4.30-5.90) m/uL Hgb (13.0-17.5) gm/dL Hct (39.0-53.0) % RDW (11.5-15.5) % Neutrophils # (1.3-7.7) k/uL Retic Count 0.3 L (0.5-2.0) % Chloride (98-107) mmol/L POC Glucose (mg/dL) 107 H (75-99) mg/dL Calcium (8.4-10.2) mg/dL Magnesium 1.4 L (1.6-2.3) mg/dL Crossmatch Assessment and Plan Plan: Assessment and Plan Plan: 1 shortness of breath on that investigation. No evidence of any venous thrombolic embolic disease. The VQ scan was negative the chest x-ray is consistent with COPD without any acute abnormalities. Patient has advanced COPD with an FEV1 of 40-44% of predicted. He has chronic exertional dyspnea. He suffers from chronic anemia. Patient was transfused last night with 1 unit of PRBC. Hemoccult is negative. Chronic anemia is thought to be related to chronic bone marrow hyperproliferation. Transfuse 1 unit of packed red blood cells today. Baseline echocardiogram showed a preserved LV function from 2016 2 COPD severe. Stable 3 coronary artery disease with previous coronary intervention and stenting 4 history of myocardial infarction 5 chronic renal failure 6 history of complicated diverticulitis according colectomy, colostomy and subsequent reversal. 7 alcoholism 8 smoker 9 hypertension 10 hyperlipidemia 11 chronic anemia, we'll transfuse 1 unit of PRBCs 12 peripheral vascular disease Recommendation: Continue present treatment plan for underlying COPD, patient told me that his baseline FEV1 is normal in the range of 40%, and this was about a year ago. It is probably close to 35% at this point, and considering his anemia in addition to his COPD, that is the main reason for his shortness of breath on presentation. Surgery is investigating the possibility of GI tract blood loss. Await input from hematology/oncology. Continue present course of bronchodilators, address his anemia accordingly, and hematology/ oncology input is appreciated. Increase activity as tolerated. I performed a history & physical examination of the patient and discussed their management with my nurse practitioner, Nurys Polanco. I reviewed the nurse practitioner's note and agree with the documented findings and plan of care.
[2017-05-30 17:21] VITALS: PULSE 87
[2017-05-30 17:46] LABS: Glucose,Whole Blood 171 mg/dL (75-99)
[2017-05-31 09:45] LABS: Free Kappa Lt Chain Qnt, Serum 3.77 mg/dL (0.33-1.94)
[2017-06-01 07:25] LABS: Methylmalonic Acid 0.16 umol/L (<0.40)
--- NOTE | 2017-06-01 16:21 | P.DS ---
Providers Date of admission: 05/27/17 11:02 Expected date of discharge: 05/30/17 Attending physician: Magdalena Donahue Consults: 05/27/17 11:04 Consult Physician Urgent Consulting Provider: Richard Benitez Consult Reason/Comments: Dyspnea, history of COPD Do you want consulting provider notified?: Yes 05/28/17 10:23 Consult Physician Routine Consulting Provider: Jacinta Redd Consult Reason/Comments: low hemoglobin, recent revision for diverticulitis , evaluate for GI bleed Do you want consulting provider notified?: Yes 05/28/17 11:26 Consult Physician Routine Consulting Provider: Ilir Harrison Consult Reason/Comments: anemia/chronic Do you want consulting provider notified?: Yes, Notify in am Primary care physician: Buddy Allen [facility] Course: This is a 66-year-old pleasant gentleman patient of Dr. Allen, Dr. Vasquez, Dr. Benitez. He has underlying history of CAD hyperlipidemia hypertension with previous OK, heavy alcohol dependency, pleural effusion last 2014 admitted to the hospital secondary to fatigue, dyspnea and exertion, unable to walk secondary to probably legs, he also has been had having lightheadedness, weight loss, diminished appetite, he was last seen by Dr. Allen 1 month ago for which 2 units of packed red blood cell was given for his anemia, he had end-to-end anastomosis of a diverticular partial colectomy last December [address] Pope for which patient denies any complications related to it. Patient does not have any GI losses including melena hematochezia or hematemesis. Patient has had occasional cough which is his routine, he mentioned that he quit smoking yesterday at one half pack per day, also drinks 2-3 tall bottles of gin mixed with squirt on a daily basis, last intake was yesterday. He mentions that he was scheduled to be in [facility] rehabilitation for alcohol however he is not medically cleared secondary to his current symptoms. She also mentions that he has difficulty in coping up with his anxiety, thus his constant drinking pattern he currently lives with the who has difficulty in his behaviors for alcohol, and is also threatening that if he doesn't change his alcoholic wastes, she would divorce him Emergency room his hemoglobin was 8.3 from a previous of 8.2 last 12/18/2016 megalocytosis noted, INR of 1.2, d-dimer slightly elevated 1.13 sodium low at 135, potassium low at 3.2, magician extremely low at 0.5 glucose 97, chest x- ray failed to reveal any effusion, VQ scan was requested and showed low probability for pulmonary emboli, patient will be admitted secondary to dyspnea and exertion with progressive debility, consult was made with Dr Benitez, echocardiogram would be performed along with physical therapy and occupational therapy, thiamine and nutritional replacement, consult with psychiatry secondary to poor coping skills and alcohol substance disorder. He would be on DT precautions, Ativan when necessary, start on Librium 10 mg 4 times a day 05/28: Patient's hemoglobin has dropped to 6.6 and will be transfused 1 unit packed RBCs. Heparin has been discontinued. Consult with Dr. Li who is his general surgeon. Patient did have a transfusion as an outpatient on May [address] Mckeon patient has been seen by Dr. Vasquez an echocardiogram has been taken report is pending. Dr. Benitez is on consult as well. We will change Solu-Medrol over to oral prednisone at 40 mg daily. Patient states that his appetite is better he denies having any heartburn, abdominal pain. He denies any dark stools. He denies any blood in sputum or urine. He states he is not eating very much. He did have occult blood checked in the ER which was negative. Patient is otherwise hemodynamically stable and will be transferred to the [facility] floor today. No signs of active bleeding. 05/29: Occupational therapy is recommended subacute rehab the patient is adamant that he'll only go home. Social work also met with the patient. They have provided him with alcohol rehab facilities. Pulmonary medicine is added in a consult for Dr. concepcion. Hemoglobin today is at 7.5. No signs of bleeding. Repeat occult blood to be collected. Potassium, calcium and magnesium will be replaced. Echocardiogram reveals EF of 55-60%, LV moderately dilated 34-39, mild mitral regurgitation, mild tricuspid regurgitation. Anticipate discharge home tomorrow. Metoprolol has not been given the last 2 doses. This will be discontinued due to hypotension. Patient does state that Dr. Allen discontinued this about 2 weeks ago. 05/30: Patient has been seen by Dr. Harrison and likely cause of chronic anemia is chronic marrow hypo-proliferation due to alcohol effect and renal insufficiency . He recommends supportive transfusion to keep hemoglobin above 7. This morning hemoglobin is 6.9. Patient will be given 1 unit of packed RBCs and discharge home later today. Patient is to follow up with Dr. Harrison in 3-4 weeks. Patient will be discharged home today in stable condition. Patient has been provided rehab information by social work. Discharge diagnoses: 1. Dyspnea on exertion, multifactorial, secondary to anemia due to severe nutritional deficiencies due to chronic alcoholism, underlying CAD, and COPD. 2. 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 Anemia secondary to nutritional deficiency from chronic alcoholism 3. Prior GI bleed December 2016 due to recent polypectomy and fatty tumor removal. Dr. Redd no complications identified at this time 4. Chronic protein calorie malnutrition, moderate with alcohol dependency, nutritional supplementation 5. Heavy alcohol dependency, had tried multiple times to quit, has been very unsuccessful, patient was seen by mental health for coping skills 6. Elevated troponin with no acute coronary syndrome, History of coronary artery disease status post PCI in 2 stent placement in the past. 7. Marginally low blood pressure 8. CKD stage III 9. Rhabdomyolysis, secondary to muscle deconditioning and myoclonus 10. Hypertension. 11 COPD, stable, suspect mild exacerbation 10. Tobacco use and dependence. 11. Electrolyte abnormalities with hypokalemia, hypomagnesemia, status post replacement Discharge plan: Home with home care Impression and plan of care have been directed as dictated by the signing physician. Hafsa Haq nurse practitioner acting as scribe for signing physician. Patient Condition at Discharge: Good Plan - Discharge Summary New Discharge Prescriptions: New Budesonide-Formot 160-4.5 Mcg [Symbicort 160-4.5 Mcg Inhaler] 2 puff INHALATION RT-BID #1 inh Calcium Carbonate [Tums] 500 mg PO DAILY PRN PRN Reason: Heartburn Magnesium Oxide [Mag-Ox] 400 mg PO DAILY tab Melatonin 10 mg PO HS tab Multivitamins, Thera [Multivitamin (formulary)] 1 each PO DAILY@1200 tab Nicotine 14Mg/24Hr Patch [Habitrol] 1 patch TRANSDERM DAILY #30 patch Pantoprazole [Protonix] 40 mg PO AC-BID #60 tab predniSONE 0 mg PO DIRECTED #20 tab Thiamine [Vitamin B-1] 100 mg PO BID@1200,1700 tab Continue Folic Acid 1 mg PO HS Atorvastatin Calcium [Lipitor] 10 mg PO HS Clopidogrel [Plavix] 75 mg PO HS Discharge Medication List Atorvastatin Calcium [Lipitor] 10 mg PO HS 04/21/16 [History] Folic Acid 1 mg PO HS 04/21/16 [History] Clopidogrel [Plavix] 75 mg PO HS 12/17/16 [History] Budesonide-Formot 160-4.5 Mcg [Symbicort 160-4.5 Mcg Inhaler] 2 puff INHALATION RT-BID #1 inh 05/30/17 [Rx] Calcium Carbonate [Tums] 500 mg PO DAILY PRN 05/30/17 [Rx] Magnesium Oxide [Mag-Ox] 400 mg PO DAILY tab 05/30/17 [Rx] Melatonin 10 mg PO HS tab 05/30/17 [Rx] Multivitamins, Thera [Multivitamin (formulary)] 1 each PO DAILY@1200 tab [Rx] Nicotine 14Mg/24Hr Patch [Habitrol] 1 patch TRANSDERM DAILY #30 patch 05/30/17 [ Rx] Pantoprazole [Protonix] 40 mg PO AC-BID #60 tab 05/30/17 [Rx] Thiamine [Vitamin B-1] 100 mg PO BID@1200,1700 tab 05/30/17 [Rx] predniSONE 0 mg PO DIRECTED #20 tab 05/30/17 [Rx] Follow up Appointment(s)/Referral(s): Ilir Harrison MD [STAFF PHYSICIAN] - 06/22/17 8:45 am Buddy Allen MD [Primary Care Provider] - 06/06/17 10:45 am [facility], [NON-STAFF] - 1 Week Richard Benitez MD [STAFF PHYSICIAN] - 06/08/17 11:15 am Patient Instructions/Handouts: Prednisone (By mouth), Nicotine (Absorbed through the skin), Pantoprazole (By mouth), Budesonide/Formoterol (By breathing) , Hypokalemia (DC), Dyspnea (GEN), Hypomagnesemia (DC) Discharge Disposition: HOME WITH HOME HEALTH SERVICES
--- NOTE | 2017-06-01 16:24 | CDI ---
In responding to this query, please exercise your independent professional judgment. The [facility] Coding Staff and Clinical Documentation Specialists appreciate your assistance in clarifying documentation, maintaining compliance with coding guidelines, accurately documenting patients condition and capturing severity of illness. The fact that a question is asked does not imply that any particular answer is desired or expected. Communication forms are a method of clarifying documentation and are not made part of the Legal Health Record. Thank you in advance for your clarification. Last Revision, July 2015 Gemma Faulkner [address] [facility] [place] [address] Documentation Clarification Form Date: 06/01/2017 3:24:00 PM From: Nelsy Miles Admit Date: 05/27/2017 11:02:00 AM Patient Name: Mark Llanes Visit Number: [id number] Discharge Date: 05/30/17 Dr. Magdalena Donahue 66 year old male presents with dyspnea on exertion. Per H&P BORGES is multifactorial, secondary to anemia, severe nutritional deficiencies, chronic alcoholism. 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 No ongoing GI losses noted most likely nutritional deficiency from chronic alcoholism. He received PRBC's 05/28 (HGB 6.6) & 05/30 (Hgb 6.9). Final progress note by Dr. Kristi Hope states "chronic anemia is thought to be related to chronic bone marrow hyperproliferation". The patients anemia has not been clearly identified and requires clarification. In your professional opinion, can you please clarify the type of anemia, after study, that accounted for the patients presenting symptoms and was the reason chiefly responsible for the admission? Anemia of chronic disease due to alcoholism Iron deficiency anemia Hypoproliferative anemia due to alcohol toxicity (poisoning) Other (please specify) Please document your response to the query in your discharge summary in order to capture severity of illness and risk of mortality. Include clinical findings that support your diagnosis. FYI: Press F11 to launch patient chart. If you have a question about this query, please contact Hanna Roman, [employer], Gemma Faulkner at [phone] between 8am and 5pm. [facility]
== END 2017-05-30 18:50 | disposition home health service (06) | DRG 812 ==
LOC: EC 09:22 → 6SEL 11:02 → 5MS5E 05-28 14:42
PROVIDERS: ADMIT Family Medicine; ATTEND Family Medicine
PROC: 30233N1 Transfusion of Nonautologous Red Blood Cells into Peripheral Vein, Percutaneous Approach (ICD-10-PCS; principal; 2017-05-28)
DX: D52.0 Dietary folate deficiency anemia (principal); F10.231 Alcohol dependence with withdrawal delirium; M62.82 Rhabdomyolysis; E44.0 Moderate protein-calorie malnutrition; N17.9 Acute kidney failure, unspecified; E83.42 Hypomagnesemia; N18.3 Chronic kidney disease, stage 3 (moderate); G25.3 Myoclonus; I08.1 Rheumatic disorders of both mitral and tricuspid valves; D50.9 Iron deficiency anemia, unspecified; I12.9 Hypertensive chronic kidney disease with stage 1 through stage 4 chronic kidney disease, or unspecified chronic kidney disease; I25.10 Atherosclerotic heart disease of native coronary artery without angina pectoris; F17.210 Nicotine dependence, cigarettes, uncomplicated; J44.9 Chronic obstructive pulmonary disease, unspecified; F41.9 Anxiety disorder, unspecified; E87.6 Hypokalemia; E78.5 Hyperlipidemia, unspecified; I73.9 Peripheral vascular disease, unspecified; I25.2 Old myocardial infarction; Z79.02 Long term (current) use of antithrombotics/antiplatelets; Z79.899 Other long term (current) drug therapy; Z95.820 Peripheral vascular angioplasty status with implants and grafts; Z95.5 Presence of coronary angioplasty implant and graft; Z90.49 Acquired absence of other specified parts of digestive tract; Z88.5 Allergy status to narcotic agent
CPT/HCPCS: 36415; 71020; 78582; 80048; 80053; 82272; 82533; 82550; 82553; 82607; 82728; 82747; 83540; 83550; 83735; 83880; 83883; 83921; 84132; 84165; 84443; 84484; 85025; 85027; 85045; 85379; 85610; 85730; 86334; 86850; 86900; 86901; 86920; 93005; 93306; 94640; 94760; 96365; 96366; 96368; 96372; 96376; 99291

== ENCOUNTER 2017-06-25 01:22 | Emergency (ER) | payer BC ==
[2017-06-25] MEDS ORDERED: SODIUM CHLORIDE 0.9% 1,000 ML IV ONE (01:54)
[2017-06-25] MEDS ORDERED: DIPH,PERTUS(ACELL)TETVAC-LF 0.5 ML VIAL IM ONE (01:56)
[2017-06-25 02:09] LABS: Anisocytosis Slight; Basophils % (A) 1 %; CH 30.3; CHCM 30.9; Eosinophils # (A) 0.1 k/uL (0-0.7); Eosinophils % (A) 2 %; HCT 29.3 % (39.0-53.0); HDW 2.63; Hypochromasia Slight; Luc # (Auto) 0.16; Luc % (Auto) 3; Lymphocytes # (A) 2.3 k/uL (1.0-4.8); Lymphocytes % (A) 42 %; MCH 30.4 pg (25.0-35.0); MCHC 30.8 g/dL (31.0-37.0); MCV 98.4 fL (80.0-100.0); Macrocytosis Slight; Mean Platelet Volume 8.2; Monocytes # (A) 0.3 k/uL (0-1.0); Monocytes % (A) 6 %; Neutrophils # (A) 2.5 k/uL (1.3-7.7); Neutrophils % (A) 47 %; RBC 2.97 m/uL (4.30-5.90); WBC 5.4 k/uL (3.8-10.6); WBC (Perox) 5.64
[2017-06-25 02:13] LABS: Prothrombin Time 10.6 sec (9.0-12.0)
[2017-06-25 02:19] LABS: Total Bilirubin 0.7 mg/dL (0.2-1.3); Total Protein 6.6 g/dL (6.3-8.2)
[2017-06-25 02:48] VITALS: RESP 18
--- NOTE | 2017-06-25 02:52 | XR ---
EXAM: XR Chest, 2 Views CLINICAL HISTORY: Reason: chest injury TECHNIQUE: Frontal and lateral views of the chest. COMPARISON: CXR 05/27/17. FINDINGS: Lungs: Unremarkable. No consolidation. Pleural space: Unremarkable. No pneumothorax. Heart: Unremarkable. No cardiomegaly. Mediastinum: Unremarkable. Bones/joints: Left seventh through ninth rib fractures, previously present. No definite acute fracture. Mild degenerative changes of the thoracic spine. IMPRESSION: Left seventh through ninth rib fractures, previously present. No definite acute fracture.
--- NOTE | 2017-06-25 02:55 | XR ---
EXAM: XR Left Forearm, 2 Views CLINICAL HISTORY: Reason: Pain TECHNIQUE: Frontal and lateral views of the left forearm. COMPARISON: No relevant prior studies available. FINDINGS: Bones/joints: Degenerative changes of the humeral ulnar and humeral radial joints. No acute fracture involving the forearm. Difficult to evaluate elbow joint due to projection. No dislocation. Soft tissues: Unremarkable. IMPRESSION: No acute fracture involving the forearm. Degenerative changes as described.
--- NOTE | 2017-06-25 03:12 | ED ---
Fall HPI - General Chief Complaint: Fall Stated Complaint: fall Time Seen by Provider: 06/25/17 01:28 Source: patient, EMS Mode of arrival: EMS - History of Present Illness Initial Comments: 66 years old gentleman he fell today in his bedroom he has been drinking today he said he had a 3-4 drinks but this isn't normal for him according to the patient he drinks that much daily he denies any loss of consciousness but not sure if there is any head or neck injury is complaining about some headache and neck discomfort. Denies any blurred vision any bleeding to his scalp and some discomfort in the neck no chest pain no shortness of breath no abdominal pain no frequency urgency dysuria he did hurt his left arm and left forearm no sinus symptoms of TIA or CVA - Related Data Home Medications Medication Instructions Recorded Confirmed Atorvastatin Calcium [Lipitor] 10 mg PO HS 04/21/16 05/27/17 Folic Acid 1 mg PO HS 04/21/16 05/27/17 Clopidogrel [Plavix] 75 mg PO HS 12/17/16 05/27/17 Previous Rx's Medication Instructions Recorded Budesonide-Formot 160-4.5 Mcg 2 puff INHALATION RT-BID #1 inh 05/30/17 [Symbicort 160-4.5 Mcg Inhaler] Calcium Carbonate [Tums] 500 mg PO DAILY PRN 05/30/17 Magnesium Oxide [Mag-Ox] 400 mg PO DAILY tab 05/30/17 Melatonin 10 mg PO HS tab 05/30/17 Multivitamins, Thera [Multivitamin 1 each PO DAILY@1200 tab 05/30/17 (formulary)] Nicotine 14Mg/24Hr Patch [Habitrol] 1 patch TRANSDERM DAILY #30 patch 05/30/17 Pantoprazole [Protonix] 40 mg PO AC-BID #60 tab 05/30/17 Thiamine [Vitamin B-1] 100 mg PO BID@1200,1700 tab 05/30/17 predniSONE 0 mg PO DIRECTED #20 tab 05/30/17 Allergies Allergy/AdvReac Type Severity Reaction Status Date / Time hydromorphone HCl AdvReac Hallucinati Verified 05/27/17 10:06 [From Dilaudid] ons Review of Systems ROS Statement: Those systems with pertinent positive or pertinent negative responses have been documented in the HPI. ROS Other: All systems not noted in ROS Statement are negative. Past Medical History Past Medical History: Coronary Artery Disease (CAD), Hyperlipidemia, Hypertension, Myocardial Infarction ([place]), Skin Disorder Additional Past Medical History / Comment(s): Coronary artery disease with previous coronary intervention and stenting, advanced COPD, hypertension, hyperlipidemia, complicated diverticulitis requiring colectomy and diverticular colostomy with subsequent reversal, smoker, alcoholism, peripheral vascular disease Last Myocardial Infarction Date:: 2000 History of Any Multi-Drug Resistant Organisms: None Reported Past Surgical History: Bowel Resection, Heart Catheterization With Stent Additional Past Surgical History / Comment(s): aortogram, bowel resection with colostomy, stent right leg. Colonoscopy. Past Anesthesia/Blood Transfusion Reactions: No Reported Reaction Date of Last Stent Placement:: 2000 Past Psychological History: Anxiety Smoking Status: Current every day smoker Past Alcohol Use History: Heavy Past Drug Use History: None Reported - Past Family History Father Family Medical History: Cancer Additional Family Medical History / Comment(s): lung Mother Family Medical History: Cancer Additional Family Medical History / Comment(s): lung General Exam - General Exam Comments Initial Comments: General: The patient is awake and alert, in no distress, and does not appear acutely ill. Skin: Skin is warm and dry, noticed a skin tear on his left forearm he and now left orbital, skin is very thin and does not need any stitches within a clean the wound and dressed the wound Eye: Pupils are equal, round and reactive to light, extra-ocular movements are intact; there is normal conjunctiva bilaterally. Ears, nose, mouth and throat: There are moist mucous membranes and no oral lesions. Neck: The neck is supple, there is no tenderness or JVD. Cardiovascular: There is a regular rate and rhythm. No murmur, rub or gallop is appreciated. Respiratory: To auscultation bilateral, no wheezing no rhonchi no distress respiratory campos noticed Gastrointestinal: Soft, non-distended, non-tender abdomen without masses or organomegaly noted. There is no rebound or guarding present. Bowel sounds are unremarkable. Back: There is no tenderness to palpation in the midline. There is no obvious deformity. Musculoskeletal: Normal ROM, no tenderness, There is no pedal edema. There is no calf tenderness or swelling. No cords were appreciated. Neurological: CN II-XII intact, Cranial nerves III through XII are intact. There are no obvious motor or sensory deficits. Coordination appears grossly intact. Speech is normal. Psychiatric: Cooperative, appropriate mood & affect, normal judgment. Course Vital Signs 06/25/17 06/25/17 06/25/17 01:23 02:47 03:42 Temperature 98.0 F Pulse Rate 61 90 91 Respiratory 16 18 Rate Blood Pressure 120/64 117/59 101/62 O2 Sat by Pulse 95 93 L Oximetry KG is normal sinus rhythm ventricular rate is 76 OH interval is 156 QRS duration is 72 QT/QTc is 368/464. This EKG does not reveal any ST elevation or ST depression Vision was reassessed at 3:30, his chest x-ray is unremarkable troponin is 1.8, level is [address] Normal X-Ray of the Arm and Forearm Are Unremarkable Medical Decision Making - Lab Data Result diagrams: 06/25/17 01:34 06/25/17 01:34 Lab Results 06/25/17 06/25/17 06/25/17 Range/Units 01:34 01:34 01:34 WBC 5.4 (3.8-10.6) k/uL RBC 2.97 L (4.30-5.90) m/uL Hgb 9.0 L D (13.0-17.5) gm/dL Hct 29.3 L (39.0-53.0) % MCV 98.4 (80.0-100.0) fL MCH 30.4 (25.0-35.0) pg MCHC 30.8 L (31.0-37.0) g/dL RDW 18.0 H (11.5-15.5) % Plt Count 278 (150-450) k/uL Neutrophils % 47 % Lymphocytes % 42 % Monocytes % 6 % Eosinophils % 2 % Basophils % 1 % Neutrophils # 2.5 (1.3-7.7) k/uL Lymphocytes # 2.3 (1.0-4.8) k/uL Monocytes # 0.3 (0-1.0) k/uL Eosinophils # 0.1 (0-0.7) k/uL Basophils # 0.0 (0-0.2) k/uL Hypochromasia Slight Anisocytosis Slight Macrocytosis Slight PT 10.6 (9.0-12.0) sec INR 1.0 (<1.2) Sodium 142 (137-145) mmol/L Potassium 4.0 (3.5-5.1) mmol/L Chloride 100 (98-107) mmol/L Carbon Dioxide 18 L (22-30) mmol/L Anion Gap 24 mmol/L BUN 21 H (9-20) mg/dL Creatinine 1.80 H (0.66-1.25) mg/dL Est GFR (MDRD) Af Amer 46 (>60 ml/min/1.73 sqM) Est GFR (MDRD) Non-Af 38 (>60 ml/min/1.73 sqM) Glucose 56 L (74-99) mg/dL Calcium 9.0 (8.4-10.2) mg/dL Total Bilirubin 0.7 (0.2-1.3) mg/dL AST 122 H (17-59) U/L ALT 46 (21-72) U/L Alkaline Phosphatase 198 H (38-126) U/L Total Protein 6.6 (6.3-8.2) g/dL Albumin 3.8 (3.5-5.0) g/dL Serum Alcohol mg/dL 06/25/17 Range/Units 01:34 WBC (3.8-10.6) k/uL RBC (4.30-5.90) m/uL Hgb (13.0-17.5) gm/dL Hct (39.0-53.0) % MCV (80.0-100.0) fL MCH (25.0-35.0) pg MCHC (31.0-37.0) g/dL RDW (11.5-15.5) % Plt Count (150-450) k/uL Neutrophils % % Lymphocytes % % Monocytes % % Eosinophils % % Basophils % % Neutrophils # (1.3-7.7) k/uL Lymphocytes # (1.0-4.8) k/uL Monocytes # (0-1.0) k/uL Eosinophils # (0-0.7) k/uL Basophils # (0-0.2) k/uL Hypochromasia Anisocytosis Macrocytosis PT (9.0-12.0) sec INR (<1.2) Sodium (137-145) mmol/L Potassium (3.5-5.1) mmol/L Chloride (98-107) mmol/L Carbon Dioxide (22-30) mmol/L Anion Gap mmol/L BUN (9-20) mg/dL Creatinine (0.66-1.25) mg/dL Est GFR (MDRD) Af Amer (>60 ml/min/1.73 sqM) Est GFR (MDRD) Non-Af (>60 ml/min/1.73 sqM) Glucose (74-99) mg/dL Calcium (8.4-10.2) mg/dL Total Bilirubin (0.2-1.3) mg/dL AST (17-59) U/L ALT (21-72) U/L Alkaline Phosphatase (38-126) U/L Total Protein (6.3-8.2) g/dL Albumin (3.5-5.0) g/dL Serum Alcohol 329 mg/dL Disposition Clinical Impression: Acute alcohol intoxication, Fall, Head injury, Neck injury Disposition: HOME SELF-CARE Condition: Good Instructions: Fall Prevention for Older Adults (ED) Referrals: Buddy Allen MD [Primary Care Provider] - 1-2 days
--- NOTE | 2017-06-25 03:18 | XR ---
EXAM: XR Left Humerus, 2 or More Views CLINICAL HISTORY: Reason: Pain TECHNIQUE: Frontal and lateral views of the left humerus. COMPARISON: No relevant prior studies available. FINDINGS: Bones/joints: Degenerative changes are seen at the elbow. No acute fracture. No dislocation. Soft tissues: Unremarkable. IMPRESSION: No acute findings.
--- NOTE | 2017-06-25 03:34 | CT ---
EXAM: CT Head Without Intravenous Contrast CLINICAL HISTORY: Reason: Pain TECHNIQUE: Axial computed tomography images of the head/brain without intravenous contrast. CTDI is 57.4 mGy and DLP is 1098.8 mGy-cm. This CT exam was performed using one or more of the following dose reduction techniques: automated exposure control, adjustment of the mA and/or kV according to patient size, and/or use of iterative reconstruction technique. Coronal and sagittal reformatted images were created and reviewed. COMPARISON: No relevant prior studies available. FINDINGS: Brain: Mild chronic small vessel ischemic changes. No hemorrhage. No mass effect or edema. No evolving territorial infarction. Ventricles: Unremarkable. No ventriculomegaly. Bones/joints: Unremarkable. No acute fracture. Soft tissues: Unremarkable. Sinuses: Unremarkable as visualized. No acute sinusitis. Mastoid air cells: Unremarkable as visualized. No mastoid effusion. IMPRESSION: No acute findings. EXAM: CT Cervical Spine Without Intravenous Contrast CLINICAL HISTORY: Reason: Pain TECHNIQUE: Axial computed tomography images of the cervical spine without intravenous contrast. CTDI is 19 mGy and DLP is 382 mGy-cm. This CT exam was performed using one or more of the following dose reduction techniques: automated exposure control, adjustment of the mA and/or kV according to patient size, and/or use of iterative reconstruction technique. Coronal and sagittal reformatted images were created and reviewed. COMPARISON: No relevant prior studies available. FINDINGS: Vertebrae: Cervical straightening which may be secondary to positioning versus spasm. Multilevel facet arthrosis is seen. No acute fracture. Discs/spinal canal/neural foramina: Disc osteophyte complexes are seen at C3/C4, C4/C5, C5/C6, C6/C7 and C7/T1. A degree of central stenosis is suspected at C3/C4 and C4/C5. Neural foraminal stenosis is seen bilaterally at C2/C3, on the right at C3/C4 and bilaterally at C4/C5. Soft tissues: Unremarkable. Lung apices: Unremarkable as visualized. IMPRESSION: No acute findings. Cervical spondylosis as described.
[2017-06-25 04:12] VITALS: BP 107/63; PULSE 94; TEMP 97.5
== END 2017-06-25 04:13 | disposition home or self-care (01) ==
LOC: EC 01:22
DX: S09.90XA Unspecified injury of head, initial encounter (principal); S19.9XXA Unspecified injury of neck, initial encounter; F10.120 Alcohol abuse with intoxication, uncomplicated; S51.812A Laceration without foreign body of left forearm, initial encounter; I25.10 Atherosclerotic heart disease of native coronary artery without angina pectoris; E78.5 Hyperlipidemia, unspecified; I25.2 Old myocardial infarction; F17.200 Nicotine dependence, unspecified, uncomplicated; Y90.8 Blood alcohol level of 240 mg/100 ml or more; Z23 Encounter for immunization; Z79.02 Long term (current) use of antithrombotics/antiplatelets; Z79.899 Other long term (current) drug therapy; Z88.5 Allergy status to narcotic agent; W18.39XA Other fall on same level, initial encounter; Y92.003 Bedroom of unspecified non-institutional (private) residence as the place of occurrence of the external cause
CPT/HCPCS: 36415; 70450; 71020; 72125; 80053; 80320; 85025; 85610; 90471; 90715; 93005; 96360; 99284